=== PATIENT | female | born 1965 | race Caucasian/White ===

== ENCOUNTER 2024-11-05 21:50 | Observation (INO) ==
--- NOTE | 2024-11-05 22:26 | Emergency Department Note ---
Impression & Plan Small bowel obstruction, Umbilical hernia ED Provider Note CHIEF COMPLAINT: Abdominal pain HISTORY OF PRESENTING ILLNESS: This 59-year-old female patient presents to the emergency department with her son and daughter for evaluation of abdominal pain, nausea, and vomiting. The patient was lifting a heavy bag of birdseed and developed pain around her bellybutton around 2 PM. She then ate lunch today and started vomiting. Still having a lot of pain, pressure, nausea, and vomiting. No diarrhea. Her last BM was at 10:30 am and was just a small amount. Has also been having trouble urinating the past 1-2 hours. She denies any fevers. No chest pain or SOB, but feels like it is hard to breathe when the abdominal pain gets bad. She has had an appendectomy and tubal ligation. Still has her gallbladder. No known ill contacts. Denies hematochezia, melena, hematuria, hemoptysis, or hematemesis. She is not on any blood thinners. She last ate and drank at 1:40 pm. REVIEW OF SYSTEMS: See HPI for pertinent positives and pertinent negatives. ALLERGIES: aspartame MEDICATIONS: See below PAST MEDICAL HISTORY: See below PHYSICAL EXAM: VITALS: Vitals are noted on the nurse's note and reviewed by myself. GENERAL: Non toxic, in no acute distress, non-diaphoretic. SKIN: Capillary refill <2 sec. EYES: PERRLA. EOMI. Conjunctivae without injection, sclerae without icterus. NOSE: Patent without discharge. MOUTH: Mucous membranes moist. Uvula midline. Airway patent. NECK: Supple without nuchal rigidity. HEART: Regular rate and rhythm without murmurs gallops or rubs. LUNGS: Clear to auscultation bilaterally without wheezes, rales or rhonchi. No retractions or accessory muscle use. ABDOMEN: Positive bowel sounds x 4. Normal tympanic percussion. Soft, diffusely tender to palpation with maximal tenderness over the area of the hernia just above the umbilicus. I was able to partially reduce the hernia initially, but was unable to fully reduce the hernia. Due to the patient's pain, additional attempts were held until CT scan imaging could be performed. There were no skin color changes over the area of the hernia. No other obvious masses or hepatosplenomegaly. Colón sign negative. No CVA tenderness. No guarding, rigidity, or rebound tenderness. No focal RLQ or LLQ tenderness. MUSCULOSKELETAL: No gross musculoskeletal defects. NEURO: Patient was alert and oriented. No focal neurological deficits. DIFFERENTIAL DIAGNOSIS: Differential diagnosis includes hernia, incarcerated hernia, strangulated hernia, small bowel obstruction, hepatitis, pancreatitis, cholecystitis, cholelithiasis, appendicitis, kidney stone, pyelonephritis, UTI, gastritis, gastroenteritis, mesenteric adenitis, obstruction, constipation, hernia, abdominal abscess, perforation, diverticulitis, IBD, ischemic colitis, abdominal aortic aneurysm, , ectopic , ovarian cyst, ovarian torsion, acute salpingitis, or others. ED COURSE AND MEDICAL DECISION MAKING: HISTORY FROM INDEPENDENT HISTORIAN: Additional history was obtained from the patient's son and daughter MEDICATIONS GIVEN: Tylenol 1000 mg IV, Zofran 4 mg IV. 1 L normal saline solution bolus. Morphine 4 mg IV. MONITOR: Continuous pharmaceutical service representative: Order was placed for continuous pharmaceutical service representative. Patient was placed on the pharmaceutical service representative and continuous pulse ox. Patient was noted to be in normal sinus rhythm at an initial rate of 80 bpm per my interpretation. EKG: EKG was interpreted by myself as normal sinus rhythm at 75 bpm with no acute ST or T wave changes. INTERPRETATION OF LABS: I interpreted the labs with full lab results as below in the lab section of this note. Laboratory results pertinent to the emergent complaint are discussed in the MDM section below. The patient was advised to follow up with their PCP and/or specialist(s) for further outpatient monitoring and management of any abnormal results. INTERPRETATION OF IMAGING: Imaging studies were interpreted by myself and read by radiology as per the imaging section of this note. The patient was advised to follow up with their PCP and/or specialist(s) for further outpatient management of any non-emergent abnormal findings. Chest x-ray showed an elevated right hemidiaphragm which is increased from prior. No consolidation. CT scan of the abdomen pelvis with IV contrast showed Mid to distal small bowel obstruction secondary to a herniated umbilical small bowel loop. There is proximal fluid distention of several small bowel loops proximal to the herniation with asymmetric decompression of the small bowel beyond the level of the herniation. The herniated small bowel loop is fluid distended measuring 2.6 cm. No pneumatosis or pneumoperitoneum. Asymmetric concentric mucosal thickening with pericolonic fat stranding in the region of the distal descending and sigmoid colon. The colon is partially decompressed. Favor incidental sigmoid diverticulitis over focal colitis. No abscess or perforation. CONSULTATIONS: Dr. Vicente of general surgery. On-call hospitalist. PROCEDURES: The risks and benefits of the procedure were discussed with the patient. Verbal consent was obtained to perform the procedure. The patient was placed in the supine position. The patient had been given morphine 4 mg IV for pain control as well as an ice pack to help decrease inflammation. The umbilical hernia site was inspected and palpated to confirm the location and extent of the hernia. Gentle consistent pressure was applied at the hernia sac with counterpressure at the fascial defect to facilitate reduction. Gradual reduction of the hernia contents into the abdominal cavity was achieved without resistance. The hernia stayed reduced after the reduction. The patient noted good improvement of her symptoms after reduction of the hernia. There were no complications. The patient tolerated the procedure well. MDM SUMMARY: I examined the patient. The patient lifted a bag of bird seed earlier today and then developed abdominal pain. She then developed nausea and vomiting after eating lunch. She states that her symptoms have been getting progressively worse. She feels like her stomach is hard. On exam the patient does have a hernia above the umbilicus that is unable to be fully reduced without significant discomfort. An IV lock was placed and labs were drawn. The patient was given Tylenol 1000 mg IV and Zofran 4 mg IV. She was also given 1 L normal saline solution bolus. White blood cell count elevated 11.32. Hemoglobin normal at 14.4. Platelet count normal at 373. Sodium slightly low at 135, anion gap slightly elevated at 12, and glucose 174. CMP otherwise without concerning abnormalities. Lipase normal. Urinalysis with 1+ ketones, but no evidence for UTI. Chest x-ray showed an elevated right hemidiaphragm which is increased from prior. No consolidation. CT scan of the abdomen pelvis with IV contrast showed Mid to distal small bowel obstruction secondary to a herniated umbilical small bowel loop. There is proximal fluid distention of several small bowel loops proximal to the herniation with asymmetric decompression of the small bowel beyond the level of the herniation. The herniated small bowel loop is fluid distended measuring 2.6 cm. No pneumatosis or pneumoperitoneum. Asymmetric concentric mucosal thickening with pericolonic fat stranding in the region of the distal descending and sigmoid colon. The colon is partially decompressed. Favor incidental sigmoid diverticulitis over focal colitis. No abscess or perforation. The patient was independently evaluated by Dr. Maya, who agrees with my assessment and treatment plan. The patient was given morphine 4 mg IV and an ice pack was applied to the area of the hernia. After this intervention, I was able to fully reduce the hernia as above. The hernia stayed reduced at the time of my repeat exam. I spoke with Dr. Vicente of surgery due to the CT scan findings of the small bowel obstruction secondary to the herniated umbilical small bowel loop that now appears to be reduced on exam. He recommended the patient be admitted to medicine for further evaluation and treatment of the small bowel obstruction. He did not feel the patient required an NG tube unless she had continued nausea or vomiting. The patient's nausea and vomiting was controlled at this time so NG tube was not placed. I spoke with the on-call hospitalist who agreed to admit the patient for further evaluation and treatment. Please refer to their dictation for further details. The patient's care was transferred in stable condition. DIAGNOSIS: Small bowel obstruction Umbilical hernia Past Med/Surg History Problem List Hyponatremia Umbilical hernia (Acute) Small bowel obstruction (Acute) Shoulder pain, right Pneumococcal vaccine administered Long-term current use of steroids Medication monitoring encounter Inflammatory bowel arthritis Ulcerative colitis Colon cancer screening Encounter for pre-operative examination History of low back pain No pertinent past surgical history Medical History Ulcerative colitis Arthritis History of hypothyroidism History of anemia NO BLOOD TRANSFUSION Anxiety and depression Heart murmur NO CARDS Hemorrhoids Surgical History Family history of reaction to anesthesia MOTHER-SLOW TO WAKE UP History of dilatation and curettage History of bilateral tubal ligation History of appendectomy History of tooth extraction Stirum teeth removed H/O sinus surgery Family History Mother Family history of diabetes mellitus Other Myocardial infarction Social History Smoking Status: Never smoker Second Hand Exposure: Yes (as a child); Do You Dip or Chew Tobacco: No; Hx Alcohol Use: No Hx Substance Use: No Preferred Language: Luxembourgish Communication Ability: Effective Us Marketing Director Required: No Beliefs That Will Affect Care: None Current Living Situation: Alone Other Information That Helps Us Care for You: No Feels Safe at Home: Yes Safety Concerns: Feels Safe At This Time Assistive Devices: None Allergies Allergies Allergy/AdvReac Type Severity Reaction Status Date / Time aspartame Allergy Severe HEART Verified 05/15/24 11:10 RACING Home Meds Home Medications Medication Instructions Recorded Confirmed acetaminophen 500 mg tablet 500 mg PO QID PRN Pain 06/26/22 05/15/24 (Tylenol Extra Strength) simvastatin 5 mg tablet 5 mg PO DAILY 08/29/22 05/15/24 lactulose 20 gram/30 mL oral 30 g PO BID constipation 07/15/23 05/15/24 solution celecoxib 200 mg capsule (Celebrex) 200 mg PO DAILY 05/15/24 05/15/24 lorazepam 0.5 mg tablet mg PO PRN 05/15/24 05/15/24 ondansetron HCl 4 mg tablet mg PO PRN 05/15/24 05/15/24 vortioxetine 20 mg tablet 20 mg PO 05/15/24 05/15/24 (Trintellix) Previous Rx's Medication Instructions Recorded sulfasalazine 500 mg 0.5 g PO DAILY #90 tabs 10/29/24 tablet,delayed release Results & Data (ED) Vital Signs Vital Signs - 24 hr 11/05/24 21:53 11/05/24 22:02 11/05/24 22:28 Temperature 36.5 C Temperature Source Oral Pulse Rate 105 H 82 Pulse Rate [Apical] 76 Pulse Rate from SpO2 Sensor Pulse Rhythm [Apical] Regular Pulse Strength [Apical] Normal Respiratory Rate 20 19 Respiratory Effort / Characteristics Non-Labored Spontaneous Non-Labored Spontaneous Respiratory Depth Normal Normal Respiratory Pattern Regular Blood Pressure 97/24 L Blood Pressure [Left Arm] 189/111 H Blood Pressure Mean 48 Blood Pressure Mean [Left Arm] 137 Blood Pressure Position [Left Arm] Lying Pulse Oximetry 96 95 Oxygen Delivery Method Room Air Room Air Sepsis Recent Fever Within 48 Hours Yes Sepsis New/Unexplained Change in Mental Status N/A Sepsis Action Taken by Nursing No Action Required 11/05/24 23:00 11/06/24 00:00 11/06/24 01:00 Temperature Temperature Source Pulse Rate 72 71 67 Pulse Rate [Apical] Pulse Rate from SpO2 Sensor 66 Pulse Rhythm [Apical] Pulse Strength [Apical] Respiratory Rate 23 20 20 Respiratory Effort / Characteristics Respiratory Depth Respiratory Pattern Blood Pressure 194/103 H 182/97 H 148/75 H Blood Pressure [Left Arm] Blood Pressure Mean 133 123 99 Blood Pressure Mean [Left Arm] Blood Pressure Position [Left Arm] Pulse Oximetry 94 91 Oxygen Delivery Method Sepsis Recent Fever Within 48 Hours Sepsis New/Unexplained Change in Mental Status Sepsis Action Taken by Nursing 11/06/24 02:00 11/06/24 02:01 11/06/24 03:00 Temperature Temperature Source Pulse Rate 64 68 63 Pulse Rate [Apical] Pulse Rate from SpO2 Sensor Pulse Rhythm [Apical] Pulse Strength [Apical] Respiratory Rate 18 16 Respiratory Effort / Characteristics Respiratory Depth Respiratory Pattern Blood Pressure 154/82 H 146/75 H Blood Pressure [Left Arm] Blood Pressure Mean 99 101 Blood Pressure Mean [Left Arm] Blood Pressure Position [Left Arm] Pulse Oximetry 92 95 Oxygen Delivery Method Sepsis Recent Fever Within 48 Hours Sepsis New/Unexplained Change in Mental Status Sepsis Action Taken by Nursing Laboratory Data 11/05/24 22:06 11/05/24 22:06 Lab Results 11/05/24 11/06/24 Range/Units 22:06 00:20 WBC 11.32 H (4.8-10.8) K/ul RBC 5.26 (4.20-5.40) M/uL Hgb 14.4 (12.0-16.0) g/dl Hct 43.9 (37.0-47.0) % MCV 83.5 (80.0-100.0) fL MCH 27.4 (25.0-34.0) pg MCHC 32.8 (32.0-36.0) g/dL RDW Std Deviation 46.3 (36.4-46.3) fL RDW Coeff of Alli 15.2 H (11.5-14.5) % Plt Count 373 (130-400) K/uL MPV 9.6 (9.4-12.4) fL Immature Gran % (Auto) 0.3 % Neut % (Auto) 80.7 % Lymph % (Auto) 13.4 % Grainger % (Auto) 4.6 % Eos % (Auto) 0.6 % Baso % (Auto) 0.4 % Neut # (Auto) 9.14 H (1.40-6.50) K/uL Lymph # (Auto) 1.52 (1.20-3.40) K/uL Grainger # (Auto) 0.52 (0.11-0.59) K/uL Eos # (Auto) 0.07 (0.00-0.50) K/uL Baso # (Auto) 0.04 (0.00-0.20) K/uL Immature Gran # (Auto) 0.03 (0.01-0.20) K/uL Sodium 135 L (136-145) mmol/L Potassium 4.1 (3.5-5.1) mmol/L Chloride 99 (98-107) mmol/L Carbon Dioxide 24 (21-32) mmol/L Anion Gap 12 H (3-11) BUN 16 (6-23) mg/dl Creatinine 0.77 (0.6-1.2) mg/dl Est Cr Clr Drug Dosing 92.3 ml/min eGFR 87.71 BUN/Creatinine Ratio 20.8 H (10-20) Glucose 174 H (70-99(Fasting)) mg/dl Calcium 10.3 (8.6-10.3) mg/dl Total Bilirubin 0.7 (0.2-1.0) mg/dl AST 17 (13-39) U/L ALT 10 (7-52) U/L Alkaline Phosphatase 96 (34-104) U/L Troponin I High Sens 2.7 (0-14) pg/ml Total Protein 8.8 H (6.0-8.3) gm/dl Albumin 4.3 (3.4-5.0) gm/dl Globulin 4.5 H (2.5-4.0) gm/dl Albumin/Globulin Ratio 1.0 (0.9-2) Lipase 20 (11-82) U/L Urine Color Yellow Urine Appearance Cloudy A (Clear) Urine pH 8.5 H (4.5-7.5) Ur Specific [place] 1.037 H (1.000-1.030) Urine Protein Trace H (Negative) Urine Glucose (UA) Negative (Negative) Urine Ketones 1+ H (Negative) Urine Blood Negative (Negative) Urine Nitrite Negative (Negative) Urine Bilirubin Negative (Negative) Urine Urobilinogen Negative (Negative) Ur Leukocyte Esterase Negative (Negative) Urine WBC (Auto) 0-5 (0-5) /hpf Urine RBC (Auto) 0-2 (0-2) /hpf U Hyaline Cast (Auto) 0-2 (0-2) /lpf U Epithel Cells (Auto) 3-5 H (0-2) /hpf Urine Bacteria (Auto) None Seen (None Seen) Administered Medications Lactated Ringer's (Lr) 1,000 mls @ 80 mls/hr IV .[id number] RISA Stop: 11/07/24 03:59 Last Admin: 11/06/24 05:28 Dose: 80 mls/hr Documented By: RAFA Discontinued Medications Acetaminophen (Ofirmev) 1,000 mg in 100 mls @ 400 mls/hr IV NOW STA Stop: 11/05/24 22:59 Last Infusion: 11/05/24 23:29 Dose: Infused Documented By: Admin: 11/05/24 22:50 Dose: 400 mls/hr Documented By: LEOLA Sodium Chloride (Nss) 1,000 mls @ 999 mls/hr IV .[id number] ONE Stop: 11/05/24 23:45 Last Infusion: 11/06/24 00:02 Dose: Infused Documented By: Admin: 11/05/24 22:50 Dose: 999 mls/hr Documented By: LEOLA Ioversol (Optiray 320 100ml) 100 ml IV ONCE ONE Stop: 11/05/24 23:22 Last Admin: 11/05/24 23:21 Dose: 93 ml Documented By: CARLOS Morphine Sulfate (Morphine Sulfate 4 Mg/Ml 1 Ml Carp\Vial) 4 mg IV NOW STA Stop: 11/06/24 01:55 Last Admin: 11/06/24 01:59 Dose: 4 mg Documented By: RUFUS Ondansetron HCl (Ondansetron Inj 2 Mg/Ml 2 Ml Vial) 4 mg IV NOW STA Stop: 11/05/24 22:46 Last Admin: 11/05/24 22:50 Dose: 4 mg Documented By: LEOLA Imaging Data Radiologist's Impression: Abdomen/Pelvis CT 11/05/24 22:45 Exam(s): CT ABDOMEN + PELVIS With Contrast IV Amt: 93 ML OPTIRAY 320 EXAM: CT Abdomen and Pelvis With Intravenous Contrast CLINICAL HISTORY: Abd pain, N/V, ? Hernia, SBO. TECHNIQUE: Axial computed tomography images of the abdomen and pelvis with intravenous contrast. CTDI is 28.14 mGy and DLP is 1507.39 mGy-cm. Automated exposure control was utilized for the study. A dose lowering technique was utilized adhering to the principles of ALARA. CONTRAST: Patient received 93 ML OPTIRAY 320 of IV contrast COMPARISON: CT abdomen and pelvis with contrast dated 02/09/2023 FINDINGS: Lung bases: Unremarkable. No mass. No consolidation. ABDOMEN: Liver: Unremarkable. No mass. Gallbladder and bile ducts: Unremarkable. No calcified stones. No ductal dilation. Pancreas: Unremarkable. No mass. No ductal dilation. Spleen: Unremarkable. No splenomegaly. Adrenals: Unremarkable. No mass. Kidneys and ureters: Unremarkable. No solid mass. No hydronephrosis. Stomach and bowel: Mid to distal small bowel obstruction secondary to a herniated umbilical small bowel loop. There is proximal fluid distention of several small bowel loops proximal to the herniation with asymmetric decompression of the small bowel beyond the level of the herniation. The herniated small bowel loop is fluid distended measuring 2.6 cm. Asymmetric concentric mucosal thickening with pericolonic fat stranding in the region of the distal descending and sigmoid colon. The colon is partially decompressed. PELVIS: Appendix: No findings to suggest acute appendicitis. Bladder: Unremarkable. No mass. Reproductive: There is a somewhat rounded fluid density structure in the region of the left adnexa measuring 2.7 cm in size. Previously, this measured 2 cm. The uterus and right adnexa are unremarkable. ABDOMEN and PELVIS: Intraperitoneal space: Unremarkable. No free air. No significant fluid collection. Bones/joints: No acute fracture. No dislocation. Soft tissues: As above. The hernia measures 1.7 cm in transverse diameter. Minimal fat stranding surrounding the umbilical hernia No other abnormality identified. Vasculature: Unremarkable. No abdominal aortic aneurysm. Lymph nodes: Unremarkable. No enlarged lymph nodes. IMPRESSION: 1. Mid to distal small bowel obstruction secondary to a herniated umbilical small bowel loop. There is proximal fluid distention of several small bowel loops proximal to the herniation with asymmetric decompression of the small bowel beyond the level of the herniation. The herniated small bowel loop is fluid distended measuring 2.6 cm. No pneumatosis or pneumoperitoneum. 2. Asymmetric concentric mucosal thickening with pericolonic fat stranding in the region of the distal descending and sigmoid colon. The colon is partially decompressed. Favor incidental sigmoid diverticulitis over focal colitis. No abscess or perforation. Electronically signed by: Antoni Gilbert MD 11/06/24 01:13 AM Chest X-Ray 11/05/24 22:46 Exam(s): XR CXR 1 VIEW EXAM: XR Chest, 1 View CLINICAL HISTORY: Reason for exam: Upper abdominal pain, N/V. TECHNIQUE: Frontal view of the chest. COMPARISON: 05/05/19 FINDINGS: Lungs: Elevated right hemidiaphragm, increased from prior. No consolidation. Pleural space: No pleural effusion or pneumothorax. Heart: No cardiomegaly or pulmonary vascular congestion. Bones/joints: No acute fracture. No dislocation. IMPRESSION: Elevated right hemidiaphragm, increased from prior. No consolidation. Electronically signed by: Paulina Lewis M.D. 11/05/24 23:48 PM Discharge Plan Visit Data Chief Complaint: Abdominal Pain Stated Complaint: ABDOMINAL PAIN AND VOMITING ED Provider: Debbie Maya ED Midlevel Provider: Destiny Moreau Discharge Problem: Small bowel obstruction, Umbilical hernia Patient Disposition: Admitted As Inpatient Condition: Good Discharge Instructions Interventions: ED Discharge Assessment Last Done: 11/06/24 04:55 Discharge Problem: Umbilical hernia Qualifiers: Obstruction and gangrene presence: with obstruction but without gangrene Q ualified Code(s): K42.0 - Umbilical hernia with obstruction, without gangrene
[2024-11-05 22:29] LABS: Basophils # (auto) 0.04 K/uL (0.00-0.20); Basophils % (auto) 0.4 %; Eosinophils # (auto) 0.07 K/uL (0.00-0.50); Eosinophils % (auto) 0.6 %; Hematocrit (blood only) 43.9 % (37.0-47.0); Hemoglobin 14.4 g/dl (12.0-16.0); Immature Granulocytes # (auto) 0.03 K/uL (0.01-0.20); Immature Granulocytes % (auto) 0.3 %; Lymphocytes # (auto) 1.52 K/uL (1.20-3.40); Lymphocytes % (auto) 13.4 %; Mean Corpuscular Hemoglobin 27.4 pg (25.0-34.0); Mean Corpuscular Hgb Conc 32.8 g/dL (32.0-36.0); Mean Corpuscular Volume 83.5 fL (80.0-100.0); Mean Platelet Volume 9.6 fL (9.4-12.4); Monocytes # (auto) 0.52 K/uL (0.11-0.59); Monocytes % (auto) 4.6 %; Neutrophils # (auto) 9.14 K/uL (1.40-6.50); Neutrophils % (auto) 80.7 %; Platelet Count 373 K/uL (130-400); RDW Coefficient of Variation 15.2 % (11.5-14.5); RDW Standard Deviation 46.3 fL (36.4-46.3); Red Blood Count 5.26 M/uL (4.20-5.40); White Blood Count 11.32 K/ul (4.8-10.8)
[2024-11-05 22:46] LABS: Albumin Level 4.3 gm/dl (3.4-5.0); BUN Creatinine Ratio 20.8 (10-20); Bilirubin,Total 0.7 mg/dl (0.2-1.0); Calcium 10.3 mg/dl (8.6-10.3); Creatinine Clr Calc Pharmacy 92.3 ml/min; Globulin 4.5 gm/dl (2.5-4.0); Potassium 4.1 mmol/L (3.5-5.1); Total Protein 8.8 gm/dl (6.0-8.3)
[2024-11-05] MEDS: ACETAMINOPHEN 1,000 MG/100 ML VIAL IV STA (22:50)
[2024-11-05] MEDS: SODIUM CHLORIDE 0.9% 1,000 ML IV ONE (22:50)
[2024-11-05] MEDS: ONDANSETRON INJ 2 MG/ML 2 ML VIAL IV STA (22:50)
[2024-11-05 23:17] LABS: Troponin I High Sensitivity 2.7 pg/ml (0-14)
[2024-11-05] MEDS: OPTIRAY 320 100ml IV ONE (23:21)
--- NOTE | 2024-11-05 23:50 | XRay Report ---
Exam(s): XR CXR 1 VIEW EXAM: XR Chest, 1 View CLINICAL HISTORY: Reason for exam: Upper abdominal pain, N/V. TECHNIQUE: Frontal view of the chest. COMPARISON: 05/05/19 FINDINGS: Lungs: Elevated right hemidiaphragm, increased from prior. No consolidation. Pleural space: No pleural effusion or pneumothorax. Heart: No cardiomegaly or pulmonary vascular congestion. Bones/joints: No acute fracture. No dislocation. IMPRESSION: Elevated right hemidiaphragm, increased from prior. No consolidation. Electronically signed by: Paulina Lewis M.D. 11/05/24 23:48 PM
--- NOTE | 2024-11-06 01:14 | CT Scan Report ---
Exam(s): CT ABDOMEN + PELVIS With Contrast IV Amt: 93 ML OPTIRAY 320 EXAM: CT Abdomen and Pelvis With Intravenous Contrast CLINICAL HISTORY: Abd pain, N/V, ? Hernia, SBO. TECHNIQUE: Axial computed tomography images of the abdomen and pelvis with intravenous contrast. CTDI is 28.14 mGy and DLP is 1507.39 mGy-cm. Automated exposure control was utilized for the study. A dose lowering technique was utilized adhering to the principles of ALARA. CONTRAST: Patient received 93 ML OPTIRAY 320 of IV contrast COMPARISON: CT abdomen and pelvis with contrast dated 02/09/2023 FINDINGS: Lung bases: Unremarkable. No mass. No consolidation. ABDOMEN: Liver: Unremarkable. No mass. Gallbladder and bile ducts: Unremarkable. No calcified stones. No ductal dilation. Pancreas: Unremarkable. No mass. No ductal dilation. Spleen: Unremarkable. No splenomegaly. Adrenals: Unremarkable. No mass. Kidneys and ureters: Unremarkable. No solid mass. No hydronephrosis. Stomach and bowel: Mid to distal small bowel obstruction secondary to a herniated umbilical small bowel loop. There is proximal fluid distention of several small bowel loops proximal to the herniation with asymmetric decompression of the small bowel beyond the level of the herniation. The herniated small bowel loop is fluid distended measuring 2.6 cm. Asymmetric concentric mucosal thickening with pericolonic fat stranding in the region of the distal descending and sigmoid colon. The colon is partially decompressed. PELVIS: Appendix: No findings to suggest acute appendicitis. Bladder: Unremarkable. No mass. Reproductive: There is a somewhat rounded fluid density structure in the region of the left adnexa measuring 2.7 cm in size. Previously, this measured 2 cm. The uterus and right adnexa are unremarkable. ABDOMEN and PELVIS: Intraperitoneal space: Unremarkable. No free air. No significant fluid collection. Bones/joints: No acute fracture. No dislocation. Soft tissues: As above. The hernia measures 1.7 cm in transverse diameter. Minimal fat stranding surrounding the umbilical hernia No other abnormality identified. Vasculature: Unremarkable. No abdominal aortic aneurysm. Lymph nodes: Unremarkable. No enlarged lymph nodes. IMPRESSION: 1. Mid to distal small bowel obstruction secondary to a herniated umbilical small bowel loop. There is proximal fluid distention of several small bowel loops proximal to the herniation with asymmetric decompression of the small bowel beyond the level of the herniation. The herniated small bowel loop is fluid distended measuring 2.6 cm. No pneumatosis or pneumoperitoneum. 2. Asymmetric concentric mucosal thickening with pericolonic fat stranding in the region of the distal descending and sigmoid colon. The colon is partially decompressed. Favor incidental sigmoid diverticulitis over focal colitis. No abscess or perforation. Electronically signed by: Antoni Gilbert MD 11/06/24 01:13 AM
[2024-11-06 01:35] LABS: Appearance Urine Cloudy (Clear); Bacteria Urine Automated None Seen (None Seen); Bilirubin Urine Negative (Negative); Blood Urine Negative (Negative); Cast Urine Automated 0-2 /lpf (0-2); Color Urine Yellow; Glucose Urine UA Negative (Negative); Ketones Urine 1+ (Negative); Leukocyte Esterase Urine Negative (Negative); Nitrite Urine Negative (Negative); Protein Urine Trace (Negative); RBC Urine Automated 0-2 /hpf (0-2); Specific Gravity Urine 1.037 (1.000-1.030); Urobilinogen Urine Negative (Negative); WBC Urine Automated 0-5 /hpf (0-5); pH Urine 8.5 (4.5-7.5)
[2024-11-06] MEDS: MoRPHine SULFATE 4 MG/ML 1 ML CARP\\VIAL IV STA (01:59)
--- NOTE | 2024-11-06 03:11 | History & Physical Report ---
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 ED evaluation reveals leukocytosis 11.32, CMP sodium 135, anion gap 12, BUN/creatinine ratio 20.8, glucose 174, protein 8.8, globulin 4.5; lipase 20; UA with 1+ ketones and epithelial cells; CXR elevated right hemidiaphragm which is increased from prior without consolidation; CTAP mid to distal SBO secondary to herniated umbilical small bowel loop, proximal fluid distention of several small bowel loops proximal to the herniation with symmetric decompression of small bowel beyond the level of the herniation distending 2.6 cm, no pneumatosis or pneumoperitoneum and asymmetric concentric mucosal thickening with pericolonic fat stranding in the region of the distal descending and sigmoid colon with of the colon being partially decompressed, no abscess or perforation; EKG NSR at 73 bpm; provided with 1L NSS, Zofran 4 megs, morphine 4 mg, and Tylenol 1 g IV in ED. #SBO/Umbilical hernia Abdominal pain starting after lifting bird seed, noticeable then when standing straight up and down as well. 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 Current pain 2. - CBC leukocytosis 11.32; CMP sodium 132, anion gap 12; lipase 20 - CBC am - CTAP mid to distal SBO secondary to herniated umbilical small bowel loop with proximal fluid distention of several small bowel loops proximal to the herniation and symmetric decompression of small bowel beyond the level of the herniation (2.6 cm) - Pain management- morphine as needed - Zofran prn N/V - NPO - IVF w/ LR @ 80 mL/hr - Gen sx consulted- appreciate input + recs #Hyponatremia Likely secondary to vomiting and with minimal decrease, currently asymptomatic. - Na 135, glucose 174; corrected 137 - IVF as above - BMP am #UC/IBA-follows with rheumatology, most recent visit 05/15/2024; sulfasalazine #Anxiety/depression- Vortioxetine, lorazepam as needed Dispo: Admit, med/sx VTE prophylaxis: SCDs This document was dictated utilizing [employer]. Please excuse any grammatical errors that may be secondary to use of this software. 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 States that she continued on with her movements and did not have much abdominal pain, few hours later she was moving her laundry basket and started to notice that the pain returned again, this time a little more severe. She tried to eat a meal but states that she felt quite nauseous after this and so when she went to the restroom and went to stand up, she felt that there was a bulge at her umbilicus. After trying to eat, she vomited approximately 7 times, and states that the last time she felt that she was throwing up dark matter. Patient attempted to sleep but at 2100, the pain was rated a 10 out of 10 and she could no longer st and so she decided to be evaluated. States that the current pain is a 2 out of 10 on the pain scale, and the pain always stayed at the umbilicus. Patient did feel as though she was having sweats when she was coming to the ED, but no fever or chills otherwise. Denying chest pain, shortness of breath, palpitations, diarrhea or constipation, numbness/tingling, weakness, or syncope. Patient has never had this happen before. ED evaluation reveals leukocytosis 11.32, CMP sodium 135, anion gap 12, BUN/creatinine ratio 20.8, glucose 174, protein 8.8, globulin 4.5; lipase 20; UA with 1+ ketones and epithelial cells; CXR elevated right hemidiaphragm which is increased from prior without consolidation; CTAP mid to distal SBO secondary to herniated umbilical small bowel loop, proximal fluid distention of several small bowel loops proximal to the herniation with symmetric decompression of small bowel beyond the level of the herniation distending 2.6 cm, no pneumatosis or pneumoperitoneum and asymmetric concentric mucosal thickening with pericolonic fat stranding in the region of the distal descending and sigmoid colon with of the colon being partially decompressed, no abscess or perforation; EKG NSR at 73 bpm; provided with 1L NSS, Zofran 4 megs, morphine 4 mg, and Tylenol 1 g IV in ED. Please see Dr. Willis's attestation for adjustments/additions to treatment plan. Allergies Allergy/AdvReac Type Severity Reaction Status Date / Time aspartame Allergy Severe HEART Verified 05/15/24 11:10 RACING Home Medications Medication Instructions Recorded Confirmed Type acetaminophen 500 mg tablet 500 mg PO QID PRN Pain 06/26/22 05/15/24 History (Tylenol Extra Strength) simvastatin 5 mg tablet 5 mg PO DAILY 08/29/22 05/15/24 History lactulose 20 gram/30 mL oral 30 g PO BID constipation 07/15/23 05/15/24 History solution celecoxib 200 mg capsule (Celebrex) 200 mg PO DAILY 05/15/24 05/15/24 History lorazepam 0.5 mg tablet mg PO PRN 05/15/24 05/15/24 History ondansetron HCl 4 mg tablet mg PO PRN 05/15/24 05/15/24 History vortioxetine 20 mg tablet 20 mg PO 05/15/24 05/15/24 History (Trintellix) sulfasalazine 500 mg 0.5 g PO DAILY #90 tabs 10/29/24 Rx tablet,delayed release Past Med/Surg History Problem List Hyponatremia Umbilical hernia Small bowel obstruction Shoulder pain, right Pneumococcal vaccine administered Long-term current use of steroids Medication monitoring encounter Inflammatory bowel arthritis Ulcerative colitis Colon cancer screening Encounter for pre-operative examination History of low back pain No pertinent past surgical history Medical History Ulcerative colitis Arthritis History of hypothyroidism History of anemia NO BLOOD TRANSFUSION Anxiety and depression Heart murmur NO CARDS Hemorrhoids Surgical History Family history of reaction to anesthesia MOTHER-SLOW TO WAKE UP History of dilatation and curettage History of bilateral tubal ligation History of appendectomy History of tooth extraction [place] teeth removed H/O sinus surgery Family History Mother Family history of diabetes mellitus Other Myocardial infarction Social History Smoking Status: Never smoker Second Hand Exposure: Yes (as a child); Do You Dip or Chew Tobacco: No; Hx Alcohol Use: Yes Hx Substance Use: No Preferred Language: [place] Communication Ability: Effective 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 Beliefs That Will Affect Care: None Current Living Situation: Spouse Feels Safe at Home: Yes Assistive Devices: Glasses Review of Systems Review of Systems: All systems reviewed & are unremarkable except as noted in Subjective Physical Exam Physical Exam: General: No acute distress Skin: Warm and dry Head: Normocephalic, atraumatic Eyes: PERRL, conjunctivae clear, sclera non-icteric; wearing glasses ENT: External ear and ear canal without swelling; nose atraumatic; good dentition, tongue normal appearance, pharynx normal Neck: Supple, no LAD Cardio: RRR, no M/G/R, S1 and S2 normal Resp: No respiratory distress, Lungs CTA in all lobes bilaterally, no wheezes, rales, or rhonchi Abdomen: Soft, symmetric, mild tenderness to palpation at level just above umbilicus; No masses or hepatosplenomegaly palpable; Bowel sounds normoactive MSK: No deformities; pulses palpable and equal; no edema. Neuro: Awake, alert; Sensation intact bilaterally; CN grossly intact Psych: Appropriate mood and affect; good judgement and insight. Results & Data Results & Data Vital Signs (Past 12 Hours) Vital Signs Temp Pulse Pulse Resp BP BP Pulse Ox 11/06/24 02:01 68 11/06/24 01:00 67 20 148/75 H 91 11/06/24 00:00 71 20 182/97 H 94 11/05/24 23:00 72 23 194/103 H 11/05/24 22:28 76 19 189/111 H 95 11/05/24 22:02 82 11/05/24 21:53 36.5 C 105 H 20 97/24 L 96 O2 Del Method 11/06/24 02:01 11/06/24 01:00 11/06/24 00:00 11/05/24 23:00 11/05/24 22:28 Room Air 11/05/24 22:02 11/05/24 21:53 Room Air Laboratory Results 11/06/24 11/05/24 00:20 22:06 WBC 11.32 H RBC 5.26 Hgb 14.4 Hct 43.9 MCV 83.5 MCH 27.4 MCHC 32.8 RDW Std Deviation 46.3 RDW Coeff of Alli 15.2 H Plt Count 373 MPV 9.6 Immature Gran % (Auto) 0.3 Neut % (Auto) 80.7 Lymph % (Auto) 13.4 [place] % (Auto) 4.6 Eos % (Auto) 0.6 Baso % (Auto) 0.4 Neut # (Auto) 9.14 H Lymph # (Auto) 1.52 [place] # (Auto) 0.52 Eos # (Auto) 0.07 Baso # (Auto) 0.04 Immature Gran # (Auto) 0.03 Sodium 135 L Potassium 4.1 Chloride 99 Carbon Dioxide 24 Anion Gap 12 H BUN 16 Creatinine 0.77 Est Cr Clr Drug Dosing 92.3 eGFR 87.71 BUN/Creatinine Ratio 20.8 H Glucose 174 H Calcium 10.3 Total Bilirubin 0.7 AST 17 ALT 10 Alkaline Phosphatase 96 Troponin I High Sens 2.7 Total Protein 8.8 H Albumin 4.3 Globulin 4.5 H Albumin/Globulin Ratio 1.0 Lipase 20 Urine Color Yellow Urine Appearance Cloudy A Urine pH 8.5 H Ur Specific [place] 1.037 H Urine Protein Trace H Urine Glucose (UA) Negative Urine Ketones 1+ H Urine Blood Negative Urine Nitrite Negative Urine Bilirubin Negative Urine Urobilinogen Negative Ur Leukocyte Esterase Negative Urine WBC (Auto) 0-5 Urine RBC (Auto) 0-2 U Hyaline Cast (Auto) 0-2 U Epithel Cells (Auto) 3-5 H Urine Bacteria (Auto) None Seen Diagnostic Findings Abdomen/Pelvis CT 11/05/24 22:45 Exam(s): CT ABDOMEN + PELVIS With Contrast IV Amt: 93 ML OPTIRAY 320 EXAM: CT Abdomen and Pelvis With Intravenous Contrast CLINICAL HISTORY: Abd pain, N/V, ? Hernia, SBO. TECHNIQUE: Axial computed tomography images of the abdomen and pelvis with intravenous contrast. CTDI is 28.14 mGy and DLP is 1507.39 mGy-cm. Automated exposure control was utilized for the study. A dose lowering technique was utilized adhering to the principles of ALARA. CONTRAST: Patient received 93 ML OPTIRAY 320 of IV contrast COMPARISON: CT abdomen and pelvis with contrast dated 02/09/2023 FINDINGS: Lung bases: Unremarkable. No mass. No consolidation. ABDOMEN: Liver: Unremarkable. No mass. Gallbladder and bile ducts: Unremarkable. No calcified stones. No ductal dilation. Pancreas: Unremarkable. No mass. No ductal dilation. Spleen: Unremarkable. No splenomegaly. Adrenals: Unremarkable. No mass. Kidneys and ureters: Unremarkable. No solid mass. No hydronephrosis. Stomach and bowel: Mid to distal small bowel obstruction secondary to a herniated umbilical small bowel loop. There is proximal fluid distention of several small bowel loops proximal to the herniation with asymmetric decompression of the small bowel beyond the level of the herniation. The herniated small bowel loop is fluid distended measuring 2.6 cm. Asymmetric concentric mucosal thickening with pericolonic fat stranding in the region of the distal descending and sigmoid colon. The colon is partially decompressed. PELVIS: Appendix: No findings to suggest acute appendicitis. Bladder: Unremarkable. No mass. Reproductive: There is a somewhat rounded fluid density structure in the region of the left adnexa measuring 2.7 cm in size. Previously, this measured 2 cm. The uterus and right adnexa are unremarkable. ABDOMEN and PELVIS: Intraperitoneal space: Unremarkable. No free air. No significant fluid collection. Bones/joints: No acute fracture. No dislocation. Soft tissues: As above. The hernia measures 1.7 cm in transverse diameter. Minimal fat stranding surrounding the umbilical hernia No other abnormality identified. Vasculature: Unremarkable. No abdominal aortic aneurysm. Lymph nodes: Unremarkable. No enlarged lymph nodes. IMPRESSION: 1. Mid to distal small bowel obstruction secondary to a herniated umbilical small bowel loop. There is proximal fluid distention of several small bowel loops proximal to the herniation with asymmetric decompression of the small bowel beyond the level of the herniation. The herniated small bowel loop is fluid distended measuring 2.6 cm. No pneumatosis or pneumoperitoneum. 2. Asymmetric concentric mucosal thickening with pericolonic fat stranding in the region of the distal descending and sigmoid colon. The colon is partially decompressed. Favor incidental sigmoid diverticulitis over focal colitis. No abscess or perforation. Electronically signed by: Antoni Gilbert MD 11/06/24 01:13 AM Chest X-Ray 11/05/24 22:46 Exam(s): XR CXR 1 VIEW EXAM: XR Chest, 1 View CLINICAL HISTORY: Reason for exam: Upper abdominal pain, N/V. TECHNIQUE: Frontal view of the chest. COMPARISON: 05/05/19 FINDINGS: Lungs: Elevated right hemidiaphragm, increased from prior. No consolidation. Pleural space: No pleural effusion or pneumothorax. Heart: No cardiomegaly or pulmonary vascular congestion. Bones/joints: No acute fracture. No dislocation. IMPRESSION: Elevated right hemidiaphragm, increased from prior. No consolidation. Electronically signed by: Paulina Lewsi M.D. 11/05/24 23:48 PM Medications Administered 1L NSS IV Ondansetron 4 megs IV Morphine 4 mg IV Acetaminophen 1 g IV ECG Additional Comments: NSR 75 bpm, OH 122, QRS 84, QT/QTc 396/442, PRT - 08/24/1943 Code Status & VTE Plan Code Status Full Supervising Physician Co-Signing Physician Notes patient seen and examined, chart reviewed, case discussed with ALFRED Dc and I agree with the assessment and plan as documented as above. In brief, patient is a 59 year old female presenting with abdominal pain. Patient was lifting a bag of bird seed when she developed acute pain in her umbilicus. The pain initially improved but then returned when she was lifting a laundry basket later. She then developed nausea and vomiting and noted a hernia at her umbilicus. Hernia was ultimately able to be reduced in the ER with use of pain medications and ice Patient presently reports pain has improved. No nausea at present. She is not passing gas On physical exam she is afebrile, mildly hypertensive otherwise hemodynamically stable Resting comfortably in bed in no acute distress Skin warm and dry without rashes HEENT with pupils equal round reacting, moist mucous membranes, neck supple Heart with S1/S2 present, regular, no murmur/rub/gallops Lungs CTA anteriorly Abdomen with diminished bowel sounds, mild distention, mildly tender to palpation but no rebound or guarding. No umbilical hernia present Labs and images reviewed significant for WBC = 11.32 with neutrophil predominance Sodium = 135 imaging results as above Assessment/[id number] female with history of ulcerative colitis, hyperlipidemia presenting with acute onset abdominal pain and development of umbilical hernia with small bowel obstruction after lifting a large bag of bird seed. Hernia has been reduced. Patient's pain and nausea have improved at present. Admit to medical Keep n.p.o. IV fluids Pain control antiemetics General Surgery consultation appreciated Remainder as above PG Care Time/CCT Total # of Minutes Spent Total Time Spent with Patient: Total time spent is greater than 50% in coordination of care (as documented) at patient's floor/unit and/or counseling patient: Coding Level of Care Code 16705 INT INP/OBS CARE 3/75MIN Diagnoses Small bowel obstruction K56.609 Umbilical hernia K42.9 Hyponatremia E87.1
[2024-11-06 03:17] VITALS: RESP 16
--- NOTE | 2024-11-06 03:39 | Emergency Department Note ---
ED Visit Note I was consulted by the Advanced Practice Provider. I personally approved the management plan and take responsibility for the patient management. This includes the aspects of: -History/Physical/Personally seeing the patient -MDM -I independently interpreted the following studies:Studies and results .
[2024-11-06] MEDS ORDERED: MoRPHine SULFATE 2 MG/ML CARP IV PRN (04:02)
[2024-11-06] MEDS ORDERED: MoRPHine SULFATE 4 MG/ML 1 ML CARP\\VIAL IV PRN (04:02)
[2024-11-06] MEDS ORDERED: MELATONIN 3 MG TAB PO PRN (05:22)
[2024-11-06] MEDS ORDERED: ONDANSETRON INJ 2 MG/ML 2 ML VIAL IV PRN (05:22)
[2024-11-06] MEDS: LACTATED RINGER'S 1,000 ML IV SCH (05:28)
[2024-11-06 06:07] VITALS: TEMP 97.3
[2024-11-06] MEDS ORDERED: ACETAMINOPHEN 500 MG TAB PO PRN (06:45)
[2024-11-06] MEDS ORDERED: traZODone HCL 50 MG TAB PO PRN (06:45)
--- OUTSIDE RECORDS SUMMARY | 2024-11-06 06:45 | External Medical Summary | Summary of Care ---
Author Name Unknown Organization [facility] Address [address] [place] [address] Phone [phone] Care Team Providers Care Infirmary Attendant Name Role Phone Emma Vu Christophersusan DO Primary Car e Provider Reason for Visit * Reason Onset Date Comments Test Results Imaging Study 06/16/2024 CTAP Encounter Details Date Type Department Care Team (Late st Contact Info) Description 06/16/2024 Telephone Gastroenterology, [facility] [address] [place] [address] Norma Miller CRNP [address] [place] [address] Test Results Imaging Study (CTAP) Allergies Active Allergy Reactions Criticality Noted Date Comments Aspartame High 09/07/2022 Other Reaction(s): HEART RACING documented as of this encounter (statuses as of 07/08/2024) Medications Acetaminophen 500 MG Oral Tablet Take 1 Tablet by mouth every 4 hours as needed. 06/26/20 22 Active LORazepam 0.5 MG Oral Tablet (Ativan) Take 1 Tablet by mouth every 6 hours as needed. 01/11/20 23 Active Ondansetron HCl 4 MG Oral Tablet (Zofran) Take 1 Tablet by mouth every 8 hours as needed. 05/25/20 23 Active Vortioxetine HBr 20 MG Oral Tablet Take 1 Tablet by mouth in the morning. Active sulfaSALAzine 250 MG OR TABS Take 1 Tablet by mouth in the morning. 01/16/20 Active Rosuvastatin Calcium 10 MG Oral Tablet (Crestor) Take 1 Tablet by mouth every night at bedtime. 12/25/19 24 Active buPROPion HCl ER (SR) 100 MG Oral Tablet Extended Release 12 Hour (Wellbutrin SR) Take 1 Tablet by mouth in the morning and 1 Tablet before bedtime. Active Omeprazole 20 MG Oral Tablet Delayed ReleaseIndicati ons:Chronic constipation,Ex ternal thrombosed hemorrhoids,Abd ominal bloating,Gastro esophageal reflux disease with esophagitis without hemorrhage Take 1 Tablet by mouth in the morning. 30 Tablet 3 06/03/20 24 Active linaCLOtide 145 MCG Oral Capsule (Linzess)Indica tions:Chronic constipation,Ex ternal thrombosed hemorrhoids,Abd ominal bloating,Gastro esophageal reflux disease with esophagitis without hemorrhage Take 1 Capsule by mouth daily before breakfast. 30 Capsule 11 06/03/20 24 Active Celecoxib 200 MG Oral Capsule (CeleBREX) Take 1 Capsule by mouth in the morning. One tablet or two tablets depends on her pain level-. 03/27/20 Discontinued Semaglutide(0.2 5 or 0.5MG/DOS) 2 MG/1.5ML Solution Pen-injector (Ozempic) Inject 0.5 mg under the skin once a week. Discontinued traZODone HCl 50 MG Oral Tablet (Desyrel) Take 1 Tablet by mouth at bedtime. Discontinued Gabapentin 100 MG Oral Capsule (Neurontin) Take 1 Capsule by mouth at bedtime. 09/23/19 24 Discontinued(Or dication List Clean Up) Multivitamin Adult Oral Tablet Chewable Take by mouth. 024 Discontinued documented as of this encounter (statuses as of 07/08/2024) Active Problems Problem Noted Date Diagnosed Date Nausea and vomiting 01/25/2023 Rectal bleeding 01/25/2023 documented as of this encounter (statuses as of 07/08/2024) Immunizations Name Administration Dates Next Due Seasonal Influenza, PF, 6 M & above, IM , (FluLaval or Fluzone) 07/23/2023 Seasonal Influenza, Trivalent, (IIV3), PF, (Fluz one) 06/03/2024 documented as of this encounter Social History Tobacco Use Types Packs/Day Years Used Date Smoking Tobacco: Never Smokeless Tobacco: Never Alcohol Use Standard Drinks/Week Comments Not Currently 0 (1 standard drink = 0.6 oz pur e alcohol) Hunger Vital Sign Answer Date Recorded Within the past 12 months, y ou worried that your food would run out before you got the money to buy more. Patient declined Within the past 12 months, t he food you bought just didn't last and you didn't have money to get more. Patient declined 01/2023 Childcare Answer Date Recorded Do you feel overwhelmed with taking care of a child, family member or friend? No 06/24/2023 Does your family need help f inding childcare? (Household - for ages 0-17 years) Not on file 06/24/2023 Clothing Answer Date Recorded Have you been unable to get clothing when it was really needed? No 06/24/2023 Is your family able to get c lothes or diapers when needed? (Household - for ages 0-17 years) Not on file 06/24/2023 Personal Safety Answer Date Recorded Do you feel unsafe or have concerns for your saf ety? No 06/24/2023 Do you have concerns for you r family's safety? (Household - for ages 0-17 years) Not on file 06/24/2023 Utilities Answer Date Recorded Do you have trouble paying y our heating, water, or electric bill? No 06/24/2023 Is your family able to pay t he heat, water, or electric bill? (Household - for ages 0-17 years) Not on file 06/24/2023 Does your family have access to good internet? (Household - for ages 0-17 years) Not on file 06/24/2023 Employment Status Answer Date Recorded Are you unemployed or without regular income? Ye s 06/24/2023 Does the household have a re gular source of income? (Household - for ages 0-17 years) Not on file 06/24/2023 Social Connections Answer Date Recorded How often do you feel lonely or isolated from those around you? Sometimes 06/24/2023 Financial Resource Strain Answer Date R ecorded Do you have any trouble payi ng for your medications, or do you think you might in the future? Yes 06/24/2023 Does your family have troubl e paying for medicine? (Household - for ages 0-17 years) Not on file 06/24/2023 Transportation Needs Answer Date Record ed READ ONLY Do you have troubl e getting a ride to medical visits or work? Never True 06/24/2023 Does your family have a hard time getting a ride to doctors visits? (Household - for ages 0-17 years) Not on file 06/24/2023 Has lack of transportation k ept you from medical appointments, meetings, work, or from getting things needed for daily living? Check all that apply. (Adult - for ages 18 years and over) Not on file 06/24/2023 Do you (or your family) have trouble finding or paying for a ride (transportation)? (Household - for ages 0-17 years) Not on file 06/24/2023 Housing Stability Answer Date Recorded Do you currently live in a s helter or have no steady place to sleep at night? No 06/24/2023 READ ONLY Do you think you a re at risk of becoming homeless? No 06/24/2023 Does your family worry about paying for your home or becoming homeless? (Household - for ages 0-17 years) Not on file 1 08/24/2022 Are you homeless or worried that you might be in the future? (Adult - for ages 18 years and over) Not on file Are you (or your family) kalin eless or worried that you might be in the future? (Household - for ages 0-17 years) Not on file Food Insecurity Answer Date Recorded Do you need food for this week? No 06/24/2023 Are you able to get enough f ood for your family? (Household - for ages 0-17 years) Not on file 06/24/2023 Does your family need food t his week? (Household - for ages 0-17 years) Not on file 06/24/2023 Do you always have enough fo od for your family? (Household - for ages 0-17 years) Not on file 06/24/2023 Comments No Sex and Gender Information Value Date Recorded Sex Assigned at Female 03/24/2023 7:53 AM EDT Legal Sex Female 5:13 AM EST Gender Identity Female 03/24/2023 7:53 AM EDT Sexual Orientation Straight 03/24/2023 7: 53 AM EDT documented as of this encounter Miscellaneous Notes * Telephone Encounter - Laisha Prado OSA - 06/18/2024 4:00 PM EDT Ok, will do, Thanks MAYRA Suarez 06/18/2024 4:00 PM * Telephone Encounter - Laisha Prado OSA - 06/18/2024 2:33 PM EDT REKHA VERA will want the pt to have the stool studies done to rule out c-diff or other infections. MAYRA Suarez 06/18/2024 2:33 PM * Telephone Encounter - Julieta Mcgrath CMA - 06/18/2024 9:11 AM EDT Pt notified of results note. She does have a questionable hx of UC. Still having some abd bloating causing mild abd pain. Denies loose stools, rectal bleeding and melena. Pt feels the linzess is helping move her bowels along. Will hold off on stool studies. I also let her know scheduling will reachout to move up colonoscopy. Pt questioning if umbilical hernia on CT could be causing any of her problems. Please advise. * Telephone Encounter - Norma Miller CRNP - 06/16/2024 12:[address] scan showed colitis from the the rectosigmoid colon to the anus. She does have a questionable history of UC. Please follow-up with the patient, she having any further episodes of abdominal pain. Any loose stools?--if so I would want to do stool samples. Pended if so. Ongoing rectal bleeding? Melena? Otherwise, we need to move up colonoscopy to [facility]. documented in this encounter Plan of Treatment Upcoming Encounters Date Type Department Care Team (Late st Contact Info) Description 07/13/2024 1:45 PM EST Appointment RadiologyLaya [address] [place] [address] 07/13/2024 3:15 PM EST Appointment Laya Victor [address] [place] [address] 07/17/2024 1:45 PM EST Imaging Radiology [address] [place] [address] 07/30/2024 4:00 PM EST Office Visit Gynecology/ObstetricsLaya [address] [place] [address] Geovanna Hancock PA-C [address] [place] [address] 08/03/2024 2:00 PM EST Office Visit Otolaryngology/Head & Neck/Facial Plastic Surgery [address] [facility] [place] [address] Teddy Martel MD [address] [facility] [place] [address] 09/09/2024 9:25 AM EST Office Visit PRODUCTION [facility]NER Urology Laya Arnold [address] [place] [address] Galdino Hernandez MD [address] [place] [address] Nurse Laya Urogyn [address] [place] [address] Scheduled Orders Name Type Priority Associated Diagnoses Orde r Schedule GASTROINTESTINAL PATHOGEN PANEL, STOOL Lab Routine Colitis Diarrhea, unspecified type Expected: 06/17/2024, Expires: 06/16/2025 CLOSTRIDIUM DIFFICILE, PCR Lab Routine Colitis Diarrhea, unspecified type Expected: 06/17/2024, Expires: 06/16/2025 Health Maintenance Due Date Last Done Comments Depression Screening 1975 HIV Screening 1978 Hepatitis C Screening 1981 DTap/Tdap Vaccines (1 - Tdap) 1982 Cologuard 2008 Fecal Occult Blood Test 2008 Zoster Vaccines (1 of 2) 2013 Hepatitis B Vaccine (2 of 3 - Hep B Twinrix 3-dose series) 01/26/2022 12/29/2021 Pneumococcal Vaccine: Pediatrics (0 to 5 Years) and At-Risk Patients (6 to 64 Years) (2 of 2 - PPSV23 or PCV20) 10/24/2022 08/29/2022 COVID-19 Vaccine (1 - season) 2024 Mammogram 06/28/2024 06/28/2023 Pap Smear 06/28/2026 06/28/2023 Diabetes Screening 05/11/2027 05/11/2024, 0 01/08/2024, 09/23/2023, Additional history exists Lipid Panel 05/01/2028 05/01/2023 Sigmoidoscopy 06/11/2028 06/11/2023 Cervical Cancer Screening 06/28/2028 HPV/Co-Test 06/28/2028 06/28/2023 Colonoscopy 06/26/2034 06/26/2024, 1103/2024, 07/19/2022 Colorectal Cancer Screening 06/26/2034 Influenza Vaccine (FLU shot) Completed , 07/23/2023, 07/23/2023 HPV (Gardasil) Vaccine Aged Out No lo nger eligible based on patient's age to complete this topic MENINGOCOCCAL (MENACTRA/MENVEO) Aged Out No longer eligible based on patient's age to complete this topic documented as of this encounter Medical Devices Not on filedocumented as of this encounter Visit Diagnoses Diagnosis Colitis- Primary Other and unspecified noninfectious gastroenteritis and colitis Diarrhea, unspecified type documented in this encounter Care Teams Infirmary Attendant Relationship Specialty Start Date End Date Emma Vu DO [address] [place] [address] PCP - General Family Medicine 01/07/23 documented as of this encounter
--- OUTSIDE RECORDS SUMMARY | 2024-11-06 06:45 | External Medical Summary | Summary of Care ---
Author Name Unknown Organization [facility] Address [address] [place] [address] Phone [phone] Care Team Providers Care Beck Operator Name Role Phone Emma Vuadelaida DO Primary Car e Provider Encounter Details Date Type Department Care Team (Late st Contact Info) Description 07/13/2024 Telephone Gynecology/Obstetrics, [place] [address] [facility] [place] [phone] Geovanna Hancock PA-C [address] [place] [address] Allergies Active Allergy Reactions Criticality Noted Date Comments Aspartame High 09/07/2022 Other Reaction(s): HEART RACING documented as of this encounter (statuses as of 07/27/2024) Medications Acetaminophen 500 MG Oral Tablet Take 1 Tablet by mouth every 4 hours as needed. 06/26/2022 Active LORazepam 0.5 MG Oral Tablet (Ativan) Take 1 Tablet by mouth every 6 hours as needed. 01/10/2023 Active Ondansetron HCl 4 MG Oral Tablet (Zofran) Take 1 Tablet by mouth every 8 hours as needed. 01/10/2023 Active Vortioxetine HBr 20 MG Oral Tablet Take 1 Tablet by mouth in the morning. Active sulfaSALAzine 250 MG OR TABS Take 1 Tablet by mouth in the morning. 01/15/2023 Active Rosuvastatin Calcium 10 MG Oral Tablet (Crestor) Take 1 Tablet by mouth every night at bedtime. 12/25/2023 Active buPROPion HCl ER (SR) 100 MG Oral Tablet Extended Release 12 Hour (Wellbutrin SR) Take 1 Tablet by mouth in the morning and 1 Tablet before bedtime. Active Omeprazole 20 MG Oral Tablet Delayed ReleaseIndicatio ns:Chronic constipation,Ext ernal thrombosed hemorrhoids,Abdo donn bloating,Gastroe sophageal reflux disease with esophagitis without hemorrhage Take 1 Tablet by mouth in the morning. 30 Tablet 3 06/03/2024 Active linaCLOtide 145 MCG Oral Capsule (Linzess)Indicat ions:Chronic constipation,Ext ernal thrombosed hemorrhoids,Abdo donn bloating,Gastroe sophageal reflux disease with esophagitis without hemorrhage Take 1 Capsule by mouth daily before breakfast. 30 Capsule 11 06/03/2024 Active Polyethylene Glycol 3350 17 GM/SCOOP Oral Powder (MiraLax) Take 17 g by mouth in the morning. One cap full in juice, to effect 1 stool per day. .. 07/01/2024 Active documented as of this encounter (statuses as of 07/27/2024) Active Problems Problem Noted Date Diagnosed Date Nausea and vomiting 01/25/2023 Rectal bleeding 01/25/2023 documented as of this encounter (statuses as of 07/27/2024) Immunizations Name Administration Dates Next Due Seasonal [...] you got the money to buy more. Never true 06/29/20 24 Within the past 12 months, t he food you bought just didn't last and you didn't have money to get more. Never true 06/29/2024 Childcare Answer Date Recorded Do you feel overwhelmed with taking care of a child, family member or friend? No 06/29/2024 Does your family need help f inding childcare? (Household - for ages 0-17 years) Not on file 06/29/2024 Clothing Answer Date Recorded Have you been unable to get clothing when it was really needed? No 06/29/2024 Is your family able to get c lothes or diapers when needed? (Household - for ages 0-17 years) Not on file 06/29/2024 Personal Safety Answer Date Recorded Do you feel unsafe or have concerns for your saf ety? No 06/29/2024 Do you have concerns for you r family's safety? (Household - for ages 0-17 years) Not on file 06/29/2024 Utilities Answer Date Recorded Do you have trouble paying y our heating, water, or electric bill? No 06/29/2024 Is your family able to pay t he heat, water, or electric bill? (Household - for ages 0-17 years) Not on file 06/29/2024 Does your family have access to good internet? (Household - for ages 0-17 years) Not on file 06/29/2024 Employment Status Answer Date Recorded Are you unemployed or without regular income? Ye s 06/29/2024 Does the household have a re gular source of income? (Household - for ages 0-17 years) Not on file 06/29/2024 Social Connections Answer Date Recorded How often do you feel lonely or isolated from those around you? Sometimes 06/29/2024 Financial Resource Strain Answer Date R ecorded Do you have any trouble payi ng for your medications, or do you think you might in the future? No 06/29/2024 Does your family have troubl e paying for medicine? (Household - for ages 0-17 years) Not on file 06/29/2024 Transportation Needs Answer Date Record ed Do you have trouble getting a ride to medical visits or work? (Adult - for ages 18 years and over) Not on file 06/29/2024 Does your family have a hard time getting a ride to doctors visits? (Household - for ages 0-17 years) Not on file 06/29/2024 Has lack of transportation k ept you from medical appointments, meetings, work, or from getting things needed for daily living? Check all that apply. No 06/29/2024 Do you (or your family) have trouble finding or paying for a ride (transportation)? (Household - for ages 0-17 years) Not on file 06/29/2024 Housing Stability Answer Date Recorded Do you currently live in a s helter or have no steady place to sleep at night? No 06/29/2024 Do you think you are at risk of becoming homeless? (Adult - for ages 18 years and over) Not on file 06/29/2024 Does your family worry about paying for your home or becoming homeless? (Household - for ages 0-17 years) Not on file 1 08/29/2023 Are you homeless or worried that you might be in the future? No 06/29/2024 Are you (or your family) kalin eless or worried that you might be in the future? (Household - for ages 0-17 years) Not on file Food Insecurity Answer Date Recorded Do you need food for this week? No 06/29/2024 Are you able to get enough f ood for your family? (Household - for ages 0-17 years) Not on file 06/29/2024 Does your family need food t his week? (Household - for ages 0-17 years) Not on file 06/29/2024 Do you always have enough fo od for your family? (Household - for ages 0-17 years) Not on file 06/29/2024 Comments No Sex and Gender Information Value Date Recorded Sex Assigned at Female 03/24/2023 7:53 AM EDT Legal Sex Female 5:13 AM EST Gender Identity Female 03/24/2023 7:53 AM EDT Sexual Orientation Straight 03/24/2023 7: 53 AM EDT documented as of this encounter Miscellaneous Notes * Telephone Encounter - Lizy Pozo LPN - 07/14/2024 3:17 PM EST Pt returned call, aware and agreeable to repeat imaging. Please call to assist with scheduling. * Telephone Encounter - Armando Blunt RN - 07/13/2024 4:24 PM EST TRC * Telephone Encounter - Armando Blunt RN - 07/13/2024 4:22 PM EST ----- Message from Geovanna Hancock sent at 07/13/2024 4:05 PM EST ----- Please inform patient I have reviewed the results of her recent ultrasound. Radiology is noting several, small simple cysts in her ovaries bilaterally. They are noting a 2 cm lesion in her left ovaryand recommending follow-up imaging in 6 months. If agreeable, I have placed the order and she may be scheduled. Thanks! Geovanna Hancock PA-C documented in this encounter Plan of Treatment Upcoming Encounters Date Type Department Care Team (Late st Contact Info) Description 07/30/2024 4:00 PM EST Office Visit Gynecology/Obstetrics, Laya [address] [place] [address] [place] [address] Geovanna Hancock PA-C [address] [place] [address] 09/09/2024 9:25 AM EST Office Visit MONITOR CAR OPERATOR Urology Laya Arnold [address] [place] [address] Galdino Hernandez MD [address] [place] [address] Nurse Laya Urogyn [address] [address] 07/16/2025 1:15 PM EST Imaging Radiology [facility] [address] [facility] [address] [place] [address] 07/16/2025 3:00 PM EST Imaging Radiology [facility] [address] [facility] [place] [address] Health Maintenance Due Date Last Done Comments [...] COVID-19 Vaccine (1 - season) 2024 Mammogram 07/13/2025 07/13/2024, 06/28/2023 Pap Smear 06/28/2026 06/28/2023 Diabetes Screening 05/11/2027 05/11/2024, 0 01/08/2024, 09/23/2023, Additional history exists Lipid Panel 05/01/2028 05/01/2023 Sigmoidoscopy 06/11/2028 06/11/2023 Cervical Cancer Screening 06/28/2028 HPV/Co-Test 06/28/2028 06/28/2023 Colonoscopy 06/26/2034 06/26/2024, 11/0 03/2024, 07/19/2022 Colorectal Cancer Screening 06/26/2034 Influenza Vaccine (FLU shot) Completed , 07/23/2023, 07/23/2023 HPV (Gardasil) Vaccine Aged Out No lo nger eligible based on patient's age to complete this topic MENINGOCOCCAL (MENACTRA/MENVEO) Aged Out No longer eligible based on patient's age to complete this topic documented as of this encounter Medical Devices Not on filedocumented as of this encounter Care Teams Beck Operator Relationship Specialty Start Date End Date Emma Vu DO [address] [place] [address] PCP - General Family Medicine 01/07/23 documented as of this encounter
--- OUTSIDE RECORDS SUMMARY | 2024-11-06 06:45 | External Medical Summary | Summary of Care ---
Author Name Unknown Organization [facility] Address [address] [facility] [address] Phone [phone] Care Team Providers Care Manager Civil Name Role Phone Emma Vu DO Primary Car e Provider Reason for Visit * Reason Onset Date Comments Appointment 07/29/2024 Encounter Details Date Type Department Care Team (Late st Contact Info) Description 07/29/2024 Telephone Gynecology/Obstetrics [facility] [address] [facility] [place] [address] Rosanna Moser PA-C [address] [facility] [place] [address] Appointment Allergies Active Allergy Reactions Criticality Noted Date Comments Aspartame High 09/07/2022 Other Reaction(s): HEART RACING documented as of this encounter (statuses as of 10/29/2024) Medications Acetaminophen 500 MG Oral Tablet Take [...] as of this encounter (statuses as of 10/29/2024) Active Problems Problem Noted Date Diagnosed Date Nausea and vomiting 01/25/2023 Rectal bleeding 01/25/2023 documented as of this encounter (statuses as of 10/29/2024) Immunizations Name Administration Dates Next Due Seasonal [...] ages 0-17 years) Not on file 06/29/2024 Food Insecurity Answer Date Recorded Within the past 12 months, y ou worried that your food would run out before you got the money to buy more. Never true 06/29/20 24 Within the past 12 months, t he food you bought just didn't last and you didn't have money to get more. Never true 06/29/2024 Do you need food for this week? No 06/29/2024 Comments No Sex and Gender Information Value Date Recorded Sex Assigned at Female 03/24/2023 7:53 AM EDT Legal Sex Female 5:13 AM EST Gender Identity Female 03/24/2023 7:53 AM EDT Sexual Orientation Straight 03/24/2023 7: 53 AM EDT documented as of this encounter Miscellaneous Notes * Telephone Encounter - Marly Pérez OSA - 07/29/2024 1:34 PM EST Pt called in she had to cancel due to an insurance issue pt needs another appointment someone in August if possible documented in this encounter Plan of Treatment Upcoming Encounters Date Type Department Care Team (Late st Contact Info) Description 07/16/2025 1:15 PM EST Imaging Radiology [address] [place] [address] 07/16/2025 3:00 PM EST Imaging Radiology [address], [place] [address] [place] [phone] Health Maintenance Due Date Last Done Comments Depression Screening 1975 HIV Screening 1978 Hepatitis C Screening 1981 DTap/Tdap Vaccines (1 - Tdap) 1982 Cologuard 2008 Fecal Occult Blood Test 2008 Zoster Vaccines (1 of 2) 2013 Hepatitis B Vaccine (2 of 3 - Hep B Twinrix 3-dose series) 01/26/2022 12/29/2021 Pneumococcal Vaccine: 50+ Years (2 of 2 - PPSV23) 10/24/2022 08/29/2022 COVID-19 Vaccine (1 - season) [...] on patient's age to complete this topic Meningitis B Vaccine (Bexsero/Trumemba) Aged Out No longer eligible based on patient's age to complete this topic documented as of this encounter Medical Devices Not on filedocumented as of this encounter Care Teams Manager Civil Relationship Specialty Start Date End Date Emma Vu DO [address] [place] [address] PCP - General Family Medicine 01/07/23 documented as of this encounter
--- OUTSIDE RECORDS SUMMARY | 2024-11-06 06:45 | External Medical Summary | Summary of Care ---
Author Name Unknown Organization [facility] Address [address] [place] [address] Phone [phone] Care Team Providers Care Semiconductor Processing Technician Name Role Phone Emma Vu Sandie Wilman DO Primary Car e Provider Reason for Referral * Evaluate & Treat - Unlimited Visits (Within 10 days (routine)) - Authorized Specialty Diagnoses / Procedures Referred By Kate williamson Referred To Contact PROCESS DEVELOPER - Urogynecology / Gynecology Urology Diagnoses Stress incontinence Drea Gage PA-C [address] [place] [address] Phone: tel: fax: Referral ID Status Reason Start Date Expiration Date Visits Requested Visits Authorized [id number] Authorized Specialty Services Required 4 [phone] Question Answer Referral Priority Within 10 days (routine) Where should this appointment be scheduled? [facility] What condition is the patient being referred for? Urinary Incontinence/Overactive Bladder Reason for Visit * Reason Comments Environmental Emergencies Assistant Return wellness Encounter Details Date Type Department Care Team (Latest Contact Info) Description 06/30/2024 9:00 AM EST Office Visit Gynecology/Obstetric Laya stevenson [address] [place] [address] Drea Gage PA-C [address] [place] [address] Women's annual routine gynecological examination*; Encounter for screening mammogram for malignant neoplasm of breast; Hot flashes due to menopause; Stress incontinence; Left ovarian cyst Allergies Active Allergy Reactions Criticality Noted Date Comments Aspartame High 09/07/2022 Other Reaction(s): HEART RACING documented as of this encounter (statuses as of 07/15/2024) Medications Acetaminophen 500 MG Oral Tablet Take 1 Tablet by mouth every 4 hours as needed. 2 Active LORazepam 0.5 MG Oral Tablet (Ativan) Take 1 Tablet by mouth every 6 hours as needed. 3 Active Ondansetron HCl 4 MG Oral Tablet (Zofran) Take 1 Tablet by mouth every 8 hours as needed. 3 Active Vortioxetine HBr 20 MG Oral Tablet Take 1 Tablet by mouth in the morning. Active sulfaSALAzine 250 MG OR TABS Take 1 Tablet by mouth in the morning. 3 Active Rosuvastatin Calcium 10 MG Oral Tablet (Crestor) Take 1 Tablet by mouth every night at bedtime. 4 Active buPROPion HCl ER (SR) 100 MG Oral Tablet Extended Release 12 Hour (Wellbutrin SR) Take 1 Tablet by mouth in the morning and 1 Tablet before bedtime. Active Omeprazole 20 MG Oral Tablet Delayed ReleaseIndicati ons:Chronic constipation,Ex ternal thrombosed hemorrhoids,Abd ominal bloating,Gastro esophageal reflux disease with esophagitis without hemorrhage Take 1 Tablet by mouth in the morning. 30 Tablet 3 4 Active linaCLOtide 145 MCG Oral Capsule (Linzess)Indica tions:Chronic constipation,Ex ternal thrombosed hemorrhoids,Abd ominal bloating,Gastro esophageal reflux disease with esophagitis without hemorrhage Take 1 Capsule by mouth daily before breakfast. 30 Capsule 11 4 Active Celecoxib 200 MG Oral Capsule (CeleBREX) Take 1 Capsule by mouth in the morning. One tablet or two tablets depends on her pain level-. 3 024 Discontinued Semaglutide(0.2 5 or 0.5MG/DOS) 2 MG/1.5ML Solution Pen-injector (Ozempic) Inject 0.5 mg under the skin once a week. Discontinued traZODone HCl 50 MG Oral Tablet (Desyrel) Take 1 Tablet by mouth at bedtime. Discontinued Multivitamin Adult Oral Tablet Chewable Take by mouth. Discontinued documented as of this encounter (statuses as of 07/15/2024) Active Problems Problem Noted Date Diagnosed Date Nausea and vomiting 01/25/2023 Rectal bleeding 01/25/2023 documented as of this encounter (statuses as of 07/15/2024) Immunizations Name Administration Dates Next Due Seasonal Influenza, PF, 6 M & above, IM , (FluLaval or Fluzone) 07/23/2023 Seasonal Influenza, Trivalent, (IIV3), PF, (Fluz one) 06/03/2024 documented as of this encounter Social History Tobacco Use Types Packs/Day Years Used Date Smoking Tobacco: Never Smokeless Tobacco: Never Tobacco Cessation:Counseling Given: Not Answered Alcohol Use Standard Drinks/Week Comments Not Currently [...] AM EDT documented as of this encounter Last Filed Vital Signs Vital Sign Reading Time Taken Comments Blood Pressure 136/82 06/30/2024 8:51 AM EST Pulse - - Temperature 36.6 C (97.9 F) 06/30/2024 8:51 AM ES T Respiratory Rate - - Oxygen Saturation - - Inhaled Oxygen Concentration - - Weight 104.8 kg (231 lb) 06/30/2024 8:51 AM EST Height - - Body Mass Index 37.28 06/26/2024 10:11 AM EST documented in this encounter Progress Notes * Drea Gage PA-C - 06/30/2024 9:14 AM EST Corrina Harmon 06/30/2024 CC: Women's Wellness Exam HPI: Corrina Harmon is a pleasant 58 year old postmenopausal female here for her women's wellness exam. She has several concerns she wishes to address at today's visit. She has been postmenopausal for 4 years. Denies any vaginal bleeding since. Is reporting an increase in hot flashes over the last year. Hot flashes are occurring worse at night. She has them infrequently throughout the day. She had a CT scan completed 06/09/2024 and noted a small 2.4 cm adnexal cyst on her left ovary. Didnot have follow-up ultrasound. Does occasionally have pain on that side. Does have PMHx significantfor ulcerative colitis and other GI complaints. She also reports some vaginal odor and burning, but thinks this is more related to urinary symptomsversus vaginal infection. She has had urinary leakage and incontinence requiring her to wear a pad daily. She reports leakage is worse when she laughs, coughs, or stands up. She has seen a urologist for this in the past as well as pelvic organ prolapse, but has not seen them in the last year. She is not currently sexually active with no concerns for STIs. Performs SBE. Notes no changes or concerns. Her last Mammogram was 06/28/2023 - BIRADS 1. Agreeable to schedule. She denies a hx of abnormal Pap smears. Last Pap: 06/28/2023 - NILM/Neg HPV. Due 2027. Last colonoscopy was 06/26/2024. OB History Para Term AB Living 4 2 2 2 2 SAB IAB Ectopic Multiple Live Births 2 # Outcome Date GA Lbr Srini/2nd Weight Sex Type Anes PTL Lv 4 Term 3 Term 2 SAB 1 SAB Past Medical History: Diagnosis Date Anxiety Hyperlipidemia INFORMATION borderline diabetes Motion sickness Nausea and vomiting PONV (postoperative nausea and vomiting) Past Surgical History: Procedure Laterality Date ANORECTAL EXAM ,DIAG, REQUIRING ANESTHESIA N/A 07/12/2023 ANORECTAL EXAM UNDER ANESTHESIA performed by Francoise Kamara MD at OR [facility] COLONOSCOPY, DIAGNOSTIC (RECTUM) 06/26/2024 COLONOSCOPY FLEXIBLE PROXIMAL DIAGNOSTIC performed by Niko Ashraf MD at [facility] EGD, FLEXIBLE, DIAGNOSTIC 06/26/2024 ESOPHAGOGASTRODUODENOSCOPY (EGD), FLEXIBLE, TRANSORAL, DIAGNOSTIC performed by Niko Ashraf MD at [facility] HEMORRHOIDECTOMY, INTERNAL, 2 + COLUMNS N/A 07/12/2023 HEMORRHOIDECTOMY EXTERNAL AND INTERNAL COMPLEX performed by Francoise Kamara MD at [facility] INFORMATION 1988 tubal INFORMATION 1989 sinus surgery INFORMATION 12/2021 colonscopy INFORMATION 07/2022 colonoscopy INFORMATION 1975 appendix removed SIGMOIDOSCOPY, DIAGNOSTIC 06/11/2023 diverticulosis/hemorrhoids/biopsies normal/SIGMOIDOSCOPY FLEXIBLE DIAGNOSTIC performed by Niko Ashraf MD at [facility]COPY [facility] Family History Family History Problem Relation Name Age of Onset Diabetes Mother Rheum arthritis Mother Stroke Father Heart Disorder Father Prostate cancer Father Melanoma Father Breast Cancer Aunt (Maternal) Other (breast cysts) Aunt (Maternal) unsure of any breast cancer Other (breast reduction) Aunt (Maternal) Ovarian cancer No significant family history Endometrial cancer No significant family history Uterine cancer No significant family history Colon cancer No significant family history Social History Social History Socioeconomic History Marital status: Tobacco Use Smoking status: Never Smokeless tobacco: Never Vaping Use Vaping status: Never Used Substance and Sexual Activity Alcohol use: Not Currently Drug use: Never Sexual activity: Not Currently Social Needs Financial Resource Strain: Low Risk (06/29/2024) Financial Resource Strain Do you have any trouble paying for your medications, or do you think you might in the future? (Adult - for ages 18 years and over): No Food Insecurity: No Food Insecurity (06/29/2024) Food Insecurity Do you need food for this week? (Adult - for ages 18 years and over): No Transportation Needs: No Transportation Needs (06/29/2024) Transportation Needs Has lack of transportation kept you from medical appointments, meetings, work, or from getting things needed for daily living? Check all that apply. (Adult - for ages 18 years and over): No Social Connections: Socially Integrated (06/29/2024) Social Connections How often do you feel lonely or isolated from those around you? (Adult - for ages 18 years and over): Sometimes Housing Stability: Low Risk (06/29/2024) Housing Stability Do you currently live in a jail or have no steady place to sleep at night? (Adult - for ages 18 years and over): No Are you homeless or worried that you might be in the future? (Adult - for ages 18 years and over): No Medications Current Outpatient Medications Medication Sig Dispense Refill Acetaminophen 500 MG Oral Tablet Take 1 Tablet by mouth every 4 hours as needed. Celecoxib 200 MG Oral Capsule (CeleBREX) Take 1 Capsule by mouth in the morning. One tablet or two tablets depends on her pain level-. LORazepam 0.5 MG Oral Tablet (Ativan) Take 1 Tablet by mouth every 6 hours as needed. Ondansetron HCl 4 MG Oral Tablet (Zofran) Take 1 Tablet by mouth every 8 hours as needed. Vortioxetine HBr 20 MG Oral Tablet Take 1 Tablet by mouth in the morning. sulfaSALAzine 250 MG OR TABS Take 1 Tablet by mouth in the morning. Semaglutide(0.25 or 0.5MG/DOS) 2 MG/1.5ML Solution Pen-injector (Ozempic) Inject 0.5 mg under the skin once a week. (Patient not taking: Reported on 06/03/2024) traZODone HCl 50 MG Oral Tablet (Desyrel) Take 1 Tablet by mouth at bedtime. Rosuvastatin Calcium 10 MG Oral Tablet (Crestor) Take 1 Tablet by mouth every night at bedtime. Multivitamin Adult Oral Tablet Chewable Take by mouth. (Patient not taking: Reported on 06/26/2024) buPROPion HCl ER (SR) 100 MG Oral Tablet Extended Release 12 Hour (Wellbutrin SR) Take 1 Tablet by mouth in the morning and 1 Tablet before bedtime. Omeprazole 20 MG Oral Tablet Delayed Release Take 1 Tablet by mouth in the morning. (Patient not taking: Reported on 06/22/2024) 30 Tablet 3 linaCLOtide 145 MCG Oral Capsule (Linzess) Take 1 Capsule by mouth daily before breakfast. 30 Capsule 11 No current facility-administered medications for this visit. Allergies Review of patient's allergies indicates: Allergen Reactions Aspartame Other Reaction(s): HEART RACING ROS See HPI above for pertinent positives/negatives. Physical Exam BP 136/82 | Temp 36.6 C (97.9 F) | Wt 104.8 kg (231 lb) | BMI 37.28 kg/m | BSA 2.21 m General: awake, alert, and oriented x 3, NAD Neck: supple without adenopathy, thyroid normal size, non-tender, without nodularity Cardiac: regular rate and rhythm no murmur Lungs: clear to auscultation Abdomen: soft, non-tender, normal bowel sounds, no masses or organomegaly, no inguinal nodes Neuro: no focal motor/sensory deficits, gait normal Breasts: no nipple retraction or dimpling, no nipple discharge or bleeding, no axillary or supraclavicular adenopathy, normal to palpation without dominant masses Pelvic: external genitalia and vagina anatomy within normal limits, no vulvar lesions, no significant vaginal discharge, cervix normal in appearance without lesions or purulent discharge, uterus is normal size, shape, and consistency, adnexa normal bilaterally, no abnormal pelvic masses. Rectal: perianal area normal, anus normal Eyeglass Lens Cutter Documentation Patient offered road roller engineer and accepted. Name of road roller engineer: Maribel Parish LPN. Assessment/Plan Women's annual routine gynecological examination (Primary) - Pap due 2027 - Colonoscopy up to date - Declines STI testing at this time. - Patient is postmenopausal. To reach out with any vaginal bleeding for further evaluation. Encounter for screening mammogram for malignant neoplasm of breast - MAMMOGRAM SCREENING CONCHA BILATERAL - Encouraged regular breast self-awareness. Encouraged annual mammograms. Order placed and patient to schedule. Hot flashes due to menopause - Discussed treatment options to include lifestyle modifications and SSRIs. She is on several psychiatric medications to include Wellbutrin ER and Lorazepam. - Discussed gold standard treatment to include HRT/ERT. She is open to discussing further at a follow-up appointment. Stress incontinence - UROGYNECOLOGY CLINIC REFERRAL OP (FEMALE ONLY) Left ovarian cyst - US PELVIS TRANS-VAGINAL NON-OB; Future; Expected date: 06/30/2024 - Will complete U/S to evaluate small left ovarian cyst further. Can discuss results at follow-up appointment. - Also discussed non PEST CONTROL OPERATOR causes of pelvic pain. Follow-Up: RTO in 4 weeks to discuss U/S results and HRT, and RTO sooner PRN with concern. Call theoffice with any problems, questions, concerns. Drea Gage PA-C 06/30/2024 documented in this encounter Nursing Notes * Dolly Qureshi CMA - 06/30/2024 8:54 AM EST Chief Complaint Patient presents with Environmental Emergencies Assistant Return wellness Patient identified Corrina Guillermo Beaulieukayla by name and date of . Patient here for yearly exam. Complaints: Pt reports having hot flashes and also has had some cold sweats. Last pap: 06/28/2023 neg/neg Last Mammogram: 06/28/2023 Last Dexa: n/a Last Colonoscopy: 06/26/2024 Type of Contraception: postmenopausal Pt here for chlamydia screen. no My [employer] is a way you can talk to your provider online through e-mail. May I activate it for you? ALREADY ACTIVE Do you need any refills while you are here? no Dolly Qureshi CMA 06/30/2024 8:54 AM documented in this encounter Miscellaneous Notes * Addendum Note - Drea Gage PA-C - 07/15/2024 11:07 AM EST Addended by: DREA GAGE on: 07/15/2024 11:07 AM Modules accepted: Orders * Result Encounter Note - Drea Gage PA-C - 07/15/2024 11:07 AM EST Please let patient know her recent mammogram resulted normal. Radiology recommended continuing withannual screening mammograms. I have placed the order if she would like to schedule for next year. Thanks! Drea Gage PA-C * Addendum Note - Drea Gage PA-C - 07/13/2024 4:05 PM EST Addended by: DREA GAGE on: 07/13/2024 04:05 PM Modules accepted: Orders documented in this encounter Plan of Treatment Upcoming Encounters Date Type Department Care Team (Late st Contact Info) Description 07/17/2024 1:45 PM EST Imaging Radiology [facility] 1st [facility] [address] [place] [address] 07/30/2024 4:00 PM EST Office Visit Gynecology/Obstetrics, [place] [place] [id number] Drea Gage PA-C [address] [place] [address] 08/03/2024 2:00 PM EST Office Visit Otolaryngology/Head & Neck/Facial Plastic Surgery [address] [place] [address] Teddy Martel MD [address] [place] [address] 09/09/2024 9:25 AM EST Office Visit PEST CONTROL OPERATOR [facility] [address] [facility] [place] [id number] Galdino Hernandez MD [address] [place] [address] Nurse Laya Urogyn [address] [facility] [place] [address] 01/13/2025 1:15 PM EDT [facility] [address] [place] [id number] Scheduled Orders Name Type Priority Associated Diagnoses Orde r Schedule US PELVIS TRANS-VAGINAL NON-OB Medical Imaging Routine Left ovarian cyst Expected: 01/10/2025, Expires: 08/12/2025 MAMMOGRAM SCREENING CONCHA BILATERAL Medical Imaging Routine Encounter for screening mammogram for malignant neoplasm of breast Expected: 07/14/2025 (Approximate), Expires: 08/14/2025 Scheduled Referrals Name Type Priority Associated Diagnoses Orde r Schedule UROGYNECOLOGY CLINIC REFERRAL OP (FEMALE ONLY) Referral Within 10 days (routine) Stress incontinence Ordered: 06/30/2024 Health Maintenance Due Date Last Done Comments [...] Not on filedocumented as of this encounter Procedures Procedure Name Priority Date/Time Associated Diagnosis Comments MAMMOGRAM SCREENING CONCHA BILATERAL Routine 07/13/2024 3:54 PM EST Encounter for screening mammogram for malignant neoplasm of breast documented in this encounter Results * MAMMOGRAM SCREENING CONCHA BILATERAL (07/13/2024 3:54 PM EST) Anatomical Region Laterality Modality Breast Bilateral Mammography Narrative 07/15/2024 9:30 AM EST Result MAMMOGRAM SCREENING CONCHA BILATERAL History Encounter for screening mammogram for malignant neoplasm of breast Family medical history includes breast cancer in aunt (maternal). Films Compared 06/28/2023 MAMMOGRAM SCREENING CONCHA BILATERAL and 09/04/2022 RADIOLOGY EXAM - MAMMOGRAPHY (IMAGES ONLY, NO REPORT) Findings There are scattered areas of fibroglandular density. There is no evidence of suspicious masses, calcifications, or other abnormal findings. Impression Bilateral No mammographic evidence of malignancy. BI-RADS Category: 1 - Negative. Recommendation Screening mammogram in 1 year is recommended for both breasts. Digital breast tomosynthesis was performed. This digital mammogram has been analyzed with the computer aided detection system. Breast tissue can be either dense or not dense. Dense tissue makes it harder to find breast cancer on a mammogram and also raises the risk of developing breast cancer. Your breast tissue is not dense. Talk to your healthcare provider about breast density, risks for breast cancer, and your individual situation. This examination was performed at [facility], [address] [place] [id number]. [phone] Drea Gage PA-C RAD MAMMOGRAPHY F inal Result * US PELVIS TRANS-VAGINAL NON-OB (07/13/2024 2:39 PM EST) Anatomical Region Laterality Modality Pelvis, Body Ultrasound 07/13/2024 2:50 PM EST Impressions 07/13/2024 3:42 PM EST IMPRESSION: Simple cystic structure in the left adnexa, potentially representing a peritoneal inclusion cyst or exophytic ovarian cyst. A follow-up ultrasound is recommended in 6-12 months. I have personally reviewed this examination and agree with the resident/fellow physician's interpretation. Narrative 07/13/2024 3:42 PM EST EXAM: US PELVIS TRANS-VAGINAL NON-OB - 07/13/2024 HISTORY: Left Ovarian TECHNIQUE: Real time transvaginal sonogram of the pelvis was performed. COMPARISON: CT abdomen/pelvis 06/09/2024 FINDINGS: LMP: Postmenopausal UTERUS: 7.4 cm x 4.5 cm x 5.6 cm MYOMETRIUM: Heterogeneous ENDOMETRIUM: 3.8 mm in thickness, within normal limits. RIGHT OVARY: 1.6 cm x 0.7 cm x 1.3 cm, 0.8 ml Multiple subcentimeter simple cysts visualized. LEFT OVARY: 4.0 cm x 2.8 cm x 3.7 cm, 21.6 ml There are multiple subcentimeter simple cysts within the ovary. Additionally, there is a 2.8 x 3.7 x 2.6 cm lobulated cystic structure partially surrounding the ovary. It is unclear if this structure arises from the ovary. MISCELLANEOUS: No significant free fluid. Procedure Note Darryl Liao MD - 07/13/2024 EXAM: US PELVIS TRANS-VAGINAL NON-OB - 07/13/2024 HISTORY: Left Ovarian TECHNIQUE: Real time transvaginal sonogram of the pelvis was performed. COMPARISON: CT abdomen/pelvis 06/09/2024 FINDINGS: LMP: Postmenopausal UTERUS: 7.4 cm x 4.5 cm x 5.6 cm MYOMETRIUM: Heterogeneous ENDOMETRIUM: 3.8 mm in thickness, within normal limits. RIGHT OVARY: 1.6 cm x 0.7 cm x 1.3 cm, 0.8 ml Multiple subcentimeter simple cysts visualized. LEFT OVARY: 4.0 cm x 2.8 cm x 3.7 cm, 21.6 ml There are multiple subcentimeter simple cysts within the ovary.Additionally, there is a 2.8 x 3.7 x 2.6 cm lobulated cystic structurepartially surrounding the ovary. It is unclear if this structure arisesfrom the ovary. MISCELLANEOUS: No significant free fluid. IMPRESSION IMPRESSION: Simple cystic structure in the left adnexa, potentially representing aperitoneal inclusion cyst or exophytic ovarian cyst. A follow-upultrasound is recommended in 6-12 months. I have personally reviewed this examination and agree with the resident/fellow physician's interpretation. us Drea Gage PA-C RAD ULTRASOUND F inal Result documented in this encounter Visit Diagnoses Diagnosis Women's annual routine gynecological examination- Primary Encounter for screening mammogram for malignant neoplasm of breast Other screening mammogram Hot flashes due to menopause Stress incontinence Female stress incontinence Left ovarian cyst Other and unspecified ovarian cyst Left ovarian cyst Other and unspecified ovarian cyst documented in this encounter Care Teams Semiconductor Processing Technician Relationship Specialty Start Date End Date Emma Vu DO [address] [place] [address] PCP - General Family Medicine 01/07/23 documented as of this encounter"
--- OUTSIDE RECORDS SUMMARY | 2024-11-06 06:45 | External Medical Summary | Summary of Care ---
Author Name Unknown Organization [facility] Address [address] [place] [address] Phone [phone] Care Team Providers Care Master Glazier Name Role Phone Emma Vu Sandie Wilman DO Primary Car e Provider Reason for Referral * Evaluate & Treat - Unlimited Visits (Within 10 days (routine)) - Authorized Specialty Diagnoses / Procedures Referred By Kate williamson Referred To Contact WATCH CRYSTAL GRINDER - Urogynecology / Gynecology Urology Diagnoses Stress incontinence Geovanna Hancock PA-C [address] [place] [address] Phone: tel: fax: Referral ID Status Reason Start Date Expiration Date Visits Requested Visits Authorized [id number] Authorized Specialty Services Required 4 [phone] Question Answer Referral Priority Within 10 days (routine) Where should this appointment be scheduled? [facility] What condition is the patient being referred for? 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 Encounter Details Date Type Department Care Team (Latest Contact Info) Description 06/30/2024 9:00 AM EST Office Visit Gynecology/Obstetric Laya stevenson [address] [place] [address] Geovanna Hancock PA-C [address] [place] [address] Women's annual routine gynecological examination*; Encounter for screening mammogram for malignant neoplasm of breast; Hot flashes due to menopause; Stress incontinence; Left ovarian cyst Allergies Active Allergy Reactions Criticality Noted Date Comments Aspartame High 09/07/2022 Other Reaction(s): HEART RACING documented as of this encounter (statuses as of 06/30/2024) Medications Acetaminophen 500 MG Oral Tablet Take 1 Tablet by mouth every 4 hours as needed. 2 Active Celecoxib 200 MG Oral Capsule (CeleBREX) Take 1 Capsule by mouth in the morning. One tablet or two tablets depends on her pain level-. 3 Active LORazepam 0.5 MG Oral Tablet (Ativan) [...] by mouth in the morning. 3 Active Semaglutide(0.25 or 0.5MG/DOS) 2 MG/1.5ML Solution Pen-injector (Ozempic) Inject 0.5 mg under the skin once a week. Active traZODone HCl 50 MG Oral Tablet (Desyrel) Take 1 Tablet by mouth at bedtime. Active Rosuvastatin Calcium 10 MG Oral Tablet (Crestor) Take 1 Tablet by mouth every night at bedtime. 4 Active Multivitamin Adult Oral Tablet Chewable Take by mouth. Active buPROPion HCl ER (SR) 100 MG Oral Tablet Extended Release 12 Hour (Wellbutrin SR) Take 1 Tablet by mouth in the morning and 1 Tablet before bedtime. Active Omeprazole 20 MG Oral Tablet Delayed ReleaseIndicatio ns:Chronic constipation,Ext ernal thrombosed hemorrhoids,Abdo donn bloating,Gastroe sophageal reflux disease with esophagitis without hemorrhage Take 1 Tablet by mouth in the morning. 30 Tablet 3 4 Active Additional Information Patient not taking.Reported on 06/22/2024 linaCLOtide 145 MCG Oral Capsule (Linzess)Indicat ions:Chronic constipation,Ext ernal thrombosed hemorrhoids,Abdo donn bloating,Gastroe sophageal reflux disease with esophagitis without hemorrhage Take 1 Capsule by mouth daily before breakfast. 30 Capsule 11 4 Active documented as of this encounter (statuses as of 06/30/2024) Active Problems Problem Noted Date Diagnosed Date Nausea and vomiting 01/25/2023 Rectal bleeding 01/25/2023 documented as of this encounter (statuses as of 06/30/2024) Immunizations Name Administration Dates Next Due Seasonal [...] documented in this encounter Progress Notes * Geovanna Hancock PA-C - 06/30/2024 9:14 AM EST Corrina [...] performed by Francoise Kamara MD at OR [facility] COLONOSCOPY, DIAGNOSTIC (RECTUM) 06/26/2024 COLONOSCOPY FLEXIBLE PROXIMAL DIAGNOSTIC performed by Niko Ashraf MD at ENDOSCOPY [facility] EGD, FLEXIBLE, DIAGNOSTIC 06/26/2024 ESOPHAGOGASTRODUODENOSCOPY (EGD), FLEXIBLE, TRANSORAL, DIAGNOSTIC performed by Niko Ashraf MD at ENDOSCOPY [facility] HEMORRHOIDECTOMY, INTERNAL, 2 + COLUMNS N/A 07/12/2023 HEMORRHOIDECTOMY EXTERNAL AND INTERNAL COMPLEX performed by Francoise Kamara MD at [facility] INFORMATION 1988 tubal INFORMATION 1989 sinus surgery INFORMATION 12/2021 colonscopy INFORMATION 07/2022 colonoscopy INFORMATION 1975 appendix removed SIGMOIDOSCOPY, DIAGNOSTIC 06/11/2023 diverticulosis/hemorrhoids/biopsies normal/SIGMOIDOSCOPY FLEXIBLE DIAGNOSTIC performed by Niko Ashraf MD at ENDOSCOPY [facility] Family History Family History Problem Relation Name [...] Stability Do you currently live in a alf or have no steady place to sleep [...] masses. 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 Name of wood carving lathe operator: Maribel Parish LPN. Assessment/Plan Women's annual routine [...] at follow-up appointment. - Also discussed non OVERHEAD CRANE TRUCK LOADER causes of pelvic pain. Follow-Up: RTO in 4 weeks to discuss U/S results and HRT, and RTO sooner PRN with concern. Call theoffice with any problems, questions, concerns. 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 Patient here for yearly exam. Complaints: Pt reports having hot flashes and also has had some cold sweats. Last pap: 06/28/2023 neg/neg Last Mammogram: 06/28/2023 Last Dexa: n/a Last Colonoscopy: 06/26/2024 Type of Contraception: postmenopausal Pt here for chlamydia screen. no My [facility] is a way you can talk to your provider online through e-mail. May I activate it for you? ALREADY ACTIVE Do you need any refills while you are here? no Dolly Qureshi CMA 06/30/2024 8:54 AM documented in this encounter Plan of Treatment Upcoming Encounters Date Type Department Care Team (Late st Contact Info) Description 07/01/2024 1:30 PM EST Office Visit Gastroenterology, [facility] [address] [place] [address] Norma Miller CRNP [address] [facility] [place] [address] 07/13/2024 1:45 PM EST Appointment Radiology, [place] [address] [place] [address] 07/13/2024 3:15 PM EST Appointment Radiology, [place] [address] [facility] [place] [address] 07/17/2024 1:45 PM EST Imaging Radiology [address] [facility] [place] [address] 07/30/2024 4:00 PM EST Office Visit Gynecology/Obstetrics, [place] [address] [place] [address] Geovanna Hancock PA-C [address] [facility] [place] [address] 08/03/2024 2:00 PM EST Office Visit Otolaryngology/Head & Neck/Facial Plastic Surgery [address] [facility] [place] [address] Teddy Martel MD [address] [facility] [place] [address] 09/09/2024 9:25 AM EST Office Visit OVERHEAD CRANE TRUCK LOADER U[place] [address] [place] [address] Galdino Hernandez MD [address] [place] [address] Nurse Laya Urogyn [address] [place] [address] Scheduled Orders Name Type Priority Associated Diagnoses Orde r Schedule MAMMOGRAM SCREENING CONCHA BILATERAL Medical Imaging Routine Encounter for screening mammogram for malignant neoplasm of breast Ordered: 06/30/2024 US PELVIS TRANS-VAGINAL NON-OB Medical Imaging Routine Left ovarian cyst Expected: 06/30/2024, Expires: 07/30/2025 Scheduled Referrals Name Type Priority Associated Diagnoses [...] as of this encounter Visit Diagnoses Diagnosis Women's annual routine gynecological examination- Primary Encounter for screening mammogram for malignant neoplasm of breast Other screening mammogram Hot flashes due to menopause Stress incontinence Female stress incontinence Left ovarian cyst Other and unspecified ovarian cyst documented in this encounter Care Teams Master Glazier Relationship Specialty Start Date End Date Emma Vu DO [address] [place] [address] PCP - General Family Medicine 01/07/23 documented as of this encounter"
--- OUTSIDE RECORDS SUMMARY | 2024-11-06 06:45 | External Medical Summary | Summary of Care ---
Author Name Unknown Organization [facility] Address [address] [place] [address] Phone [phone] Care Team Providers Care Wheel Loader Operator Name Role Phone Emma Vu DO Primary Car e Provider Reason for Visit * Reason Comments Follow Up Pt here to f/u for c onstipation, abd bloating and LLQ pain. Saw Superintendent Tests yesterday and they ordered an US LLQ for her ovary. Pt still having abd bloating and constipation/straining. Mild epigastric pain today. Encounter Details Date Type Department Care Team (Late st Contact Info) Description 07/01/2024 1:30 PM EST Office Visit Gastroenterology, [facility] 132 [facility] [place] [address] Norma Miller CRNP 132 [facility] [place] [address] Irritable bowel syndrome with constipation*; External thrombosed hemorrhoids; Gastroesophageal reflux disease without esophagitis Allergies Active Allergy Reactions Criticality Noted Date Comments Aspartame High 09/07/2022 Other Reaction(s): HEART RACING documented as of this encounter (statuses as of 07/01/2024) Medications Acetaminophen 500 MG Oral Tablet Take [...] before breakfast. 30 Capsule 11 4 Active Polyethylene Glycol 3350 17 GM/SCOOP Oral Powder (MiraLax) Take 17 g by mouth in the morning. One cap full in juice, to effect 1 stool per day. .. 4 Active Celecoxib 200 MG Oral Capsule (CeleBREX) Take 1 Capsule by mouth in the morning. One tablet or two tablets depends on her pain level-. 3 Discontinued Semaglutide(0.2 5 or 0.5MG/DOS) 2 MG/1.5ML Solution Pen-injector (Ozempic) Inject 0.5 mg under the skin once a week. Discontinued traZODone HCl 50 MG Oral Tablet (Desyrel) Take 1 Tablet by mouth at bedtime. Discontinued Multivitamin Adult Oral Tablet Chewable Take by mouth. Discontinued documented as of this encounter (statuses as of 07/01/2024) Active Problems Problem Noted Date Diagnosed Date Nausea and vomiting 01/25/2023 Rectal bleeding 01/25/2023 documented as of this encounter (statuses as of 07/01/2024) Immunizations Name Administration Dates Next Due Seasonal [...] Sign Reading Time Taken Comments Blood Pressure 126/78 07/01/2024 12:58 PM EST Pulse 84 07/01/2024 12:58 PM EST Temperature 36.6 C (97.9 F) 07/01/2024 12:[address] Respiratory Rate - - Oxygen Saturation - - Inhaled Oxygen Concentration - - Weight 104.8 kg (231 lb) 07/01/2024 12:58 PM EST Height - - Body Mass Index 37.28 06/26/2024 10:11 AM EST documented in this encounter Progress Notes * Norma Miller CRNP - 07/01/2024 1:30 PM EST Gastroenterology Outpatient Visit 07/01/2024 Referring physician:Emma Vu DO PCP: Emma Vu DO Past medical history: Chronic constipation ? Questionable history of UC; not appreciated most recent colonoscopy 06/2024. Pathology unremarkable Sigmoid diverticulosis History of rectal bleeding secondary to large external prolapsing thrombosed hemorrhoids, s/p hemorrhoidectomy, 07/12/2023 CC: Constipation follow-up HPI: Very pleasant 58-year-old female presents today to the gastroenterology office in routine follow-up. Last evaluated by the undersigned approximately one-month ago. 06/03/2024: Notable constipation symptoms with bloating. + taking lactulose. Developed significant left lower quadrant and lower abdominal pain with blood in the stools. - Lactulose discontinued and Linzess 145 mcg started - CTAP revealed colitis from the rectosigmoid colon to the anus. Patient has a questionable historyof ulcerative colitis. - Underwent colonoscopy on 06/26/2024-- normal mucosa of the entire colon. Diverticulosis of the sigmoid colon noted. Nonbleeding internal hemorrhoids. Pathology: Unremarkable colonic mucosa, no significant active inflammation, microscopic colitis, or dysplasia identified. - EGD unremarkable. Pathology: No evidence of celiac disease. Mild chemical/reactive gastropathy. Inactive gastritis. H pylori negative. 07/01/2024: Today the patient presents feeling generally well. Notes that the Linzess has helped her constipation significantly. About a week after taking the medication she was having 1-2 bowel movements a day that were firm but did not have any straining. However, after her colonoscopy she feels that she is little more constipated. Did restart her MiraLax in the morning. Has not had any further rectal bleeding. Continues to have some mild epigastric pain and indigestion however she has only been taking the omeprazole as needed. Has some mild abdominal bloating after meals. Appetite is improving. Followed up with track walker yesterday, will be having a pelvic ultrasound done to assess her ovaries due to assist noted on her left ovary. Patient is compliant with all medications, and offers no side effects. Medications tried for above complaint: Linzess 145 mcg daily started 06/03/2024 Lactulose-- BID, dc 05/2024 Benefiber daily 2 tbs Probiotics-- daily Miralax-- mildly effective. Squatty potty helps Previous GI workup: Colonoscopy: 06/26/2024-- normal mucosa of the entire colon. Diverticulosis of the sigmoid colon noted. Nonbleeding internal hemorrhoids. Pathology unremarkable EGD: 06/26/2024--unremarkable. Pathology: Mild chemical/reactive gastropathy. Inactive gastritis. Hpylori negative. CTAP 06/09/2024: Colitis from the rectosigmoid colon to the anus. Family Hx: CRC: Father Current Outpatient Medications Medication Sig Dispense Refill LORazepam 0.5 MG Oral Tablet (Ativan) Take 1 Tablet by mouth every 6 hours as needed. Vortioxetine HBr 20 MG Oral Tablet Take 1 Tablet by mouth in the morning. sulfaSALAzine 250 MG OR TABS Take 1 Tablet by mouth in the morning. Rosuvastatin Calcium 10 MG Oral Tablet (Crestor) Take 1 Tablet by mouth every night at bedtime. buPROPion HCl ER (SR) 100 MG Oral Tablet Extended Release 12 Hour (Wellbutrin SR) Take 1 Tablet by mouth in the morning and 1 Tablet before bedtime. Omeprazole 20 MG Oral Tablet Delayed Release Take 1 Tablet by mouth in the morning. 30 Tablet 3 linaCLOtide 145 MCG Oral Capsule (Linzess) Take 1 Capsule by mouth daily before breakfast. 30 Capsule 11 Polyethylene Glycol 3350 17 GM/SCOOP Oral Powder (MiraLax) Take 17 g by mouth in the morning. One cap full in juice, to effect 1 stool per day. .. Acetaminophen 500 MG Oral Tablet Take 1 Tablet by mouth every 4 hours as needed. Ondansetron HCl 4 MG Oral Tablet (Zofran) Take 1 Tablet by mouth every 8 hours as needed. No current facility-administered medications for this visit. Past Medical History: Diagnosis Date Anxiety Hyperlipidemia INFORMATION borderline diabetes Motion sickness Nausea and vomiting PONV (postoperative nausea and vomiting) Past Surgical History: Procedure Laterality Date ANORECTAL EXAM ,DIAG, REQUIRING ANESTHESIA N/A 07/12/2023 ANORECTAL EXAM UNDER ANESTHESIA performed by Francoise Kamara MD at [facility] COLONOSCOPY, DIAGNOSTIC (RECTUM) 06/26/2024 COLONOSCOPY FLEXIBLE PROXIMAL DIAGNOSTIC performed by Niko Ashraf MD at ENDOSCOPY [facility] EGD, FLEXIBLE, DIAGNOSTIC 06/26/2024 ESOPHAGOGASTRODUODENOSCOPY (EGD), FLEXIBLE, TRANSORAL, DIAGNOSTIC performed by Niko Ashraf MD at ENDOSCOPY [facility] HEMORRHOIDECTOMY, INTERNAL, 2 + COLUMNS N/A 07/12/2023 HEMORRHOIDECTOMY EXTERNAL AND INTERNAL COMPLEX performed by Francoise Kamara MD at [facility] INFORMATION 1988 tubal INFORMATION 1989 sinus surgery INFORMATION 12/2021 colonscopy INFORMATION 07/2022 colonoscopy INFORMATION 1975 appendix removed SIGMOIDOSCOPY, DIAGNOSTIC 06/11/2023 diverticulosis/hemorrhoids/biopsies normal/SIGMOIDOSCOPY FLEXIBLE DIAGNOSTIC performed by Niko Ashraf MD at ENDOSCOPY [facility] Social History Tobacco Use Smoking status: Never Smokeless tobacco: Never Vaping Use Vaping status: Never Used Substance Use Topics Alcohol use: Not Currently Drug use: Never Review of patient's allergies indicates: Allergen Reactions Aspartame Other Reaction(s): HEART RACING Review of Systems: See HPI for pertinent positives. All others negative, other than those noted in HPI. Physical Exam: BP 126/78 | Pulse 84 | Temp 36.6 C (97.9 F) | Wt 104.8 kg (231 lb) | BMI 37.28 kg/m | BSA 2.21 m GENERAL: Well developed and well nourished in no acute distress. SKIN: No rashes, ulcers, jaundice or spider angiomata. HEENT: Normocephalic, sclera clear, pharynx normal. NECK: Supple, no lymphadenopathy, no masses or thyroid enlargement. LUNGS: Clear to auscultation bilaterally, no respiratory distress or accessory muscles used. HEART: Regular rate & rhythm, no murmurs and no gallops. ABDOMEN: Normal bowel sounds, soft. Left lower quadrant pain. EXTREMITIES: No palmar erythema, no ankle edema, no skin discoloration, no clubbing, no cyanosis. NEURO: No lateralizing findings. Sensory/Motor grossly normal. Lab data/imaging study review: Reviewed. Impression/Plan: This is a(n) 58 year old female who is being evaluated in the office for ongoing care/risk management for the below diagnoses. 1. Irritable bowel syndrome with constipation Longstanding history of chronic constipation. Notable improvement with Linzess. Colonoscopy without evidence of colitis-- likely an over-read on CTAP. Continue Linzess 145 mcg daily, patient to follow-up in 1-2 weeks regarding her constipation symptoms. If bowels do not start moving easily again will increase dose. Okay to continue MiraLax 1 capful daily in the morning 2. External thrombosed hemorrhoids History of rectal bleeding secondary to large external prolapsing thrombosed hemorrhoids, status post hemorrhoidectomy, 07/12/2023 3. GERD Chronic inactive gastritis noted on EGD. Patient with ongoing indigestion/epigastric discomfort. Only taking PPI as needed. Increase omeprazole to 20 mg daily Discussed dietary and lifestyle modifications to improve GERD. Avoid NSAIDs and alcohol. If patient continues to have epigastric discomfort/abdominal bloating consider gastric emptying study to assess for gastroparesis. The patient agrees to the above plan and will call with additional questions or concerns. ER with all emergencies advised. Follow Up: Return in about 6 months (around 12/29/2024). I spent a total of 40-54 minutes (exact time 40 mins) on the date of service in preparation, delivery, and documentation of the care provided to Corrina Harmon excluding any time spent in the performance of separately billed services or time spent by another provider/QHP. MARCO ANTONIO Hilliard [facility] Gastroenterology, [facility] This chart was completed in part utilizing [employer] Speech Voice Recognition Software. Grammatical errors, random word insertions, prounoun errors, and incomplete sentences are an occasional consequence of this system due to software limitations, ambient noise, and hardware issues. Any formal questions or concerns about the content, text, or information contained within the body of this dictation should be directly addressed to the provider for clarification. documented in this encounter Nursing Notes * Julieta Mcgrath CMA - 07/01/2024 12:58 PM EST Chief Complaint Patient presents with Follow Up Pt here to f/u for constipation, abd bloating and LLQ pain. Saw Superintendent Tests yesterday and they ordered an US LLQ for her ovary. Pt still having abd bloating and constipation/straining. Mild epigastric pain today. documented in this encounter Plan of Treatment Upcoming Encounters Date Type Department Care Team (Late st Contact Info) Description 07/13/2024 1:45 [place] [address] 07/13/2024 3:15 PM EST Appointment Laya Victor [address] [place] [address] 07/17/2024 1:45 PM EST Imaging Radiology [facility] [address] [facility] [place] [address] 07/30/2024 4:00 PM EST Office Visit Gynecology/Obstetrics, [place] [address] [place] [address] [place] [address] Geovanna Hancock PA-C [address] [place] [address] 08/03/2024 2:00 PM EST Office Visit Otolaryngology/Head & Neck/Facial Plastic Surgery [address] [place] [address] Teddy Martel MD [address] [place] [facility] [place] [address] 09/09/2024 9:25 AM EST Office Visit ANTHROPOLOGY L[facility]ER [facility] [address] [facility] [place] [address] Galdino Hernandez MD [address] [place] [address] Nurse Laya Urogyn [address] [place] [place] [address] Health Maintenance Due Date Last Done Comments [...] as of this encounter Visit Diagnoses Diagnosis Irritable bowel syndrome with constipation- Primary Irritable bowel syndrome External thrombosed hemorrhoids Gastroesophageal reflux disease without esophagitis Esophageal reflux documented in this encounter Care Teams Wheel Loader Operator Relationship Specialty Start Date End Date Emma Vu DO [address] [place] [address] PCP - General Family Medicine 01/07/23 documented as of this encounter"
--- OUTSIDE RECORDS SUMMARY | 2024-11-06 06:45 | External Medical Summary | Summary of Care ---
Author Name Unknown Organization [facility] Address [address] [place] [address] Phone [phone] Care Team Providers Care Diabetes Solutions Specialist Name Role Phone Emma Vu DO Primary Car e Provider Reason for Visit * Reason Onset Date Comments Appointment 07/13/2024 Encounter Details Date Type Department Care Team (Late st Contact Info) Description 07/13/2024 Telephone [address] [place], [place] [id number] Corrina Joiner, RT (R) Appointment Allergies Active Allergy Reactions Criticality Noted Date Comments Aspartame High 09/07/2022 Other Reaction(s): HEART RACING documented as of this encounter (statuses as of 07/13/2024) Medications Acetaminophen 500 MG Oral Tablet Take [...] as of this encounter (statuses as of 07/13/2024) Active Problems Problem Noted Date Diagnosed Date Nausea and vomiting 01/25/2023 Rectal bleeding 01/25/2023 documented as of this encounter (statuses as of 07/13/2024) Immunizations Name Administration Dates Next Due Seasonal [...] encounter Miscellaneous Notes * Telephone Encounter - Corrina Joiner, RT (R) - 07/13/2024 1:24 PM EST Name: Corrina Harmon Do you have any of the following: Pacemaker, stents, heart valves, aneurysm clips? No Have you ever worked with metal or have you ever gotten metal in your eyes? No Have you had a colonoscopy in the last 30 days? Yes - no clips On dialysis? No Do you have any dermals or body piercing's? No or ? no Do you wear an insulin pump or diabetic monitor? no Corrina Joiner RT (R) documented in this encounter Plan of Treatment Upcoming Encounters Date Type Department Care Team (Late st Contact Info) Description 07/13/2024 1:13 PM EST Hospital Encounter RadiologyLaya [address] [place] [id number] Arrived 07/13/2024 3:15 PM EST Appointment Laya Victor [address] [place] [address] 07/17/2024 1:45 PM EST Imaging Radiology [address] [place] [address] 07/30/2024 4:00 PM EST Office Visit Gynecology/Obstetrics [place] [address] [place] [address] Geovanna Hancock PA-C [address] [place] [address] 08/03/2024 2:00 PM EST Office Visit Otolaryngology/Head & Neck/Facial Plastic Surgery [address] [facility] [place] [address] Teddy Martel MD [address] [facility] [place] [address] 09/09/2024 9:25 AM EST Office Visit HAND STONER Urology [place] [address] [place] [address] Galdino Hernandez MD [address] [place] [address] Nurse Laya Urogydot [address] [place] [address] Health Maintenance Due Date Last Done Comments [...] filedocumented as of this encounter Care Teams Diabetes Solutions Specialist Relationship Specialty Start Date End Date Emma Vu DO [address] [place] [address] PCP - General Family Medicine 01/07/23 documented as of this encounter
--- OUTSIDE RECORDS SUMMARY | 2024-11-06 06:45 | External Medical Summary | Summary of Care ---
Author Name Unknown Organization [facility] Address [address] [place] [address] Phone [phone] Care Team Providers Care Mechanic Sound Technician Name Role Phone Emma Vu Sandie Stovall DO Primary Car e Provider Encounter Details Date Type Department Care Team (Latest Contact Info) Description 07/13/2024 3:15 PM EST - 07/13/2024 11:59 PM EST Hospital Encounter Radiology, [place] [address] [place] [address] Arrived Discharge Disposition: Home - Self Care Allergies Active Allergy Reactions Criticality Noted Date Comments Aspartame High 09/07/2022 Other Reaction(s): HEART RACING documented as of this encounter (statuses as of 07/14/2024) Medications Acetaminophen 500 MG Oral Tablet Take [...] as of this encounter (statuses as of 07/14/2024) Active Problems Problem Noted Date Diagnosed Date Nausea and vomiting 01/25/2023 Rectal bleeding 01/25/2023 documented as of this encounter (statuses as of 07/14/2024) Immunizations Name Administration Dates Next Due Seasonal [...] AM EDT documented as of this encounter Plan of Treatment Upcoming Encounters Date Type Department Care Team (Late st Contact Info) Description 07/17/2024 1:45 PM EST Imaging Radiology [address] [place] [address] 07/30/2024 4:00 PM EST Office Visit Gynecology/Obstetrics, [place] [place] [address] Geovanna Hancock PA-C [address] [place] [address] 08/03/2024 2:00 PM EST Office Visit Otolaryngology/Head & Neck/Facial Plastic Surgery [address] [place] [address] Teddy Martel MD [address] [place] [address] 09/09/2024 9:25 AM EST Office Visit QUARRY SUPERVISOR [facility] [place] Laya Gonzalez [address] [facility] [place], [place] [id number] Galdino Hernandez MD [address] [place] [address] Nurse Laya Urogyn [address] [facility] [place] [id number] 01/13/2025 1:15 PM EDT [facility] [address] [place] [address] Pending Results Name Type Priority Associated Diagnoses Date /Time MAMMOGRAM SCREENING CONCHA BILATERAL Medical Imaging Routine Encounter for screening mammogram for malignant neoplasm of breast 07/13/2024 3:54 PM EST Health Maintenance Due Date Last Done Comments [...] 06/28/2028 HPV/Co-Test 06/28/2028 06/28/2023 Colonoscopy 06/26/2034 06/26/2024, 110 03/2024, 07/19/2022 Colorectal Cancer Screening 06/26/2034 Influenza Vaccine (FLU shot) Completed , 07/23/2023, 07/23/2023 HPV (Gardasil) Vaccine Aged Out No lo nger eligible based on patient's age to complete this topic MENINGOCOCCAL (MENACTRA/MENVEO) Aged Out No longer eligible based on patient's age to complete this topic documented as of this encounter Medical Devices Not on filedocumented as of this encounter Care Teams Mechanic Sound Technician Relationship Specialty Start Date End Date Emma Vu DO [address] [facility] [place] [address] PCP - General Family Medicine 01/07/23 documented as of this encounter
--- OUTSIDE RECORDS SUMMARY | 2024-11-06 06:45 | External Medical Summary | Summary of Care ---
Author Name Unknown Organization [facility] Address [address] [place] [address] Phone [phone] Care Team Providers Care Manufacturing Planner Name Role Phone Emma Vu Sandie Wilman DO Primary Car e Provider Reason for Referral * Evaluate & Treat - Unlimited Visits (Within 10 days (routine)) - Authorized Specialty Diagnoses / Procedures Referred By Kate williamson Referred To Contact HOUSEKEEPING AND LAUNDRY TEAM LEADER - Urogynecology / Gynecology Urology Diagnoses Stress incontinence Drea Gage PA-C [address] [place] [address] Phone: tel: fax: Referral ID Status Reason Start Date Expiration Date Visits Requested Visits Authorized [id number] Authorized Specialty Services Required 4 [phone] Question Answer Referral Priority Within 10 days (routine) Where should this appointment be scheduled? [facility] What condition is the patient being referred for? Urinary Incontinence/Overactive Bladder Reason for Visit * Reason Comments Spike Machine Feeder Return wellness Encounter Details Date Type Department Care Team (Latest Contact Info) Description 06/30/2024 9:00 AM EST Office Visit Gynecology/Obstetric Laya stevenson [address] [place] [address] Drea Gage PA-C [address] [place] [address] Women's annual routine gynecological examination*; Encounter for [...] by Francoise Kamara MD at OR [facility] COLONOSCOPY, DIAGNOSTIC (RECTUM) 06/26/2024 COLONOSCOPY FLEXIBLE PROXIMAL DIAGNOSTIC performed by Niko Ashraf MD at ENDOSCOPY [facility] EGD, FLEXIBLE, DIAGNOSTIC 06/26/2024 ESOPHAGOGASTRODUODENOSCOPY (EGD), FLEXIBLE, TRANSORAL, DIAGNOSTIC performed by Niko Ashraf MD at ENDOSCOPY [facility] HEMORRHOIDECTOMY, INTERNAL, 2 + COLUMNS N/A 07/12/2023 HEMORRHOIDECTOMY EXTERNAL AND INTERNAL COMPLEX performed by Francoise Kamara MD at [facility] INFORMATION 1988 tubal INFORMATION 1989 sinus surgery INFORMATION 12/2021 colonscopy INFORMATION 07/2022 colonoscopy INFORMATION 1975 appendix removed SIGMOIDOSCOPY, DIAGNOSTIC 06/11/2023 diverticulosis/hemorrhoids/biopsies normal/SIGMOIDOSCOPY FLEXIBLE DIAGNOSTIC performed by Niko Ashraf MD at ENDOSCOPY [facility] Family History Family History Problem Relation [...] Stability Do you currently live in a usp or have no steady place to sleep [...] masses. Rectal: perianal area normal, anus normal Perianesthesia Nurse Documentation Patient offered cranberry bog supervisor and accepted. Name of cranberry bog supervisor: Maribel Parish LPN. Assessment/Plan Women's annual routine [...] at follow-up appointment. - Also discussed non PROVIDER EDUCATION SPECIALIST causes of pelvic pain. Follow-Up: RTO in 4 weeks to discuss U/S results and HRT, and RTO sooner PRN with concern. Call theoffice with any problems, questions, concerns. Drea Gage PA-C 06/30/2024 documented in this encounter Nursing Notes * Dolly Qureshi CMA - 06/30/2024 8:54 AM EST Chief Complaint Patient presents with Spike Machine Feeder Return wellness Patient identified Corrina Guillermo Beaulieukayla by name and date of . Patient here for yearly exam. Complaints: Pt reports having hot flashes and also has had some cold sweats. Last pap: 06/28/2023 neg/neg Last Mammogram: 06/28/2023 Last Dexa: n/a Last Colonoscopy: 06/26/2024 Type of Contraception: postmenopausal Pt here for chlamydia screen. no My Croak.iter is a way you can talk to [...] Description 07/17/2024 1:45 PM EST Imaging Radiology [address] [place] [address] 07/30/2024 4:00 PM EST Office Visit Gynecology/Obstetrics, [address] [place] [address] Drea Gage PA-C [address] [place] [address] 08/03/2024 2:00 PM EST Office Visit Otolaryngology/Head & Neck/Facial Plastic Surgery [address] [place] [address] Teddy Martel MD [address] [place] [facility] [place] [address] 09/09/2024 9:25 AM EST Office Visit PROVIDER EDUCATION SPECIALIST [facility]rology [place] [address] [place] [address] Galdino Hernandez MD [address] [place] [address] Nurse Laya Urogyn [address] [place] [address] Pending Results Name Type Priority Associated Diagnoses Date /Time MAMMOGRAM SCREENING CONCHA BILATERAL Medical Imaging Routine Encounter for screening mammogram for malignant neoplasm of breast 07/13/2024 3:54 PM EST Scheduled Orders Name Type Priority Associated Diagnoses Orde r Schedule US PELVIS TRANS-VAGINAL NON-OB Medical Imaging Routine Left ovarian cyst Expected: 01/10/2025, Expires: 08/12/2025 Scheduled Referrals Name Type Priority Associated Diagnoses [...] Not on filedocumented as of this encounter Results * US PELVIS TRANS-VAGINAL NON-OB (07/13/2024 2:39 [...] cyst documented in this encounter Care Teams Manufacturing Planner Relationship Specialty Start Date End Date Emma Vu DO [address] [place] [address] PCP - General Family Medicine 01/07/23 documented as of this encounter"
--- OUTSIDE RECORDS SUMMARY | 2024-11-06 06:45 | External Medical Summary | Summary of Care ---
Author Name Unknown Organization [facility] Address [address] [place] [address] Phone [phone] Care Team Providers Care Pharmacy Intake Coordinator Name Role Phone Emma Vu Sandie Stovall DO Primary Car e Provider Encounter Details Date Type Department Care Team (Latest Contact Info) Description 07/13/2024 1:13 PM EST - 07/13/2024 3:14 PM EST Hospital Encounter Radiology, [place] [address] [place] [address] Arrived Discharge Disposition: Home - Self Care [...] as of this encounter Miscellaneous Notes * Result Encounter Note - Geovanna Hancock PA-C - 07/13/2024 1:45 PM EST Please inform patient I have reviewed the [...] Description 07/17/2024 1:45 PM EST Imaging Radiology [address] [place] [address] 07/30/2024 4:00 PM EST Office Visit [facility] [address] [place] [address] Geovanna Hancock PA-C [address] [place] [address] 08/03/2024 2:00 PM EST Office Visit Otolaryngology/Head & Neck/Facial Plastic Surgery [address] [place] [address] Teddy Martel MD [address] [facility] [place] [address] 09/09/2024 9:25 AM EST Office Visit COMPUTER LABORATORY TECHNICIAN Urology [place] Laya Gonzalez [address] [place] [address] Galdino Hernandez MD [address] [place] [address] Nurse Laya Urogyn [address] [place] [address] 01/13/2025 1:15 PM EDT [facility] [address] [facility] [place] [address] Health Maintenance Due Date Last Done Comments [...] Procedure Name Priority Date/Time Associated Diagnosis Comments US PELVIS TRANS-VAGINAL NON-OB Routine 07/13/2024 2:39 PM EST Left ovarian cyst documented in this encounter Results * US PELVIS TRANS-VAGINAL [...] agree with the resident/fellow physician's interpretation. us Geovanna Hancock PA-C RAD ULTRASOUND F inal Result documented in this encounter Visit Diagnoses Diagnosis Left ovarian cyst Other and unspecified ovarian cyst documented in this encounter Care Teams Pharmacy Intake Coordinator Relationship Specialty Start Date End Date Emma Vu DO [facility] [place] [address] PCP - General Family Medicine 01/07/23 documented as of this encounter
--- OUTSIDE RECORDS SUMMARY | 2024-11-06 06:45 | External Medical Summary | Summary of Care ---
Author Name Unknown Organization [facility] Address [address] [place] [address] Phone [phone] Care Team Providers Care Manager Critical Care Name Role Phone Emma Vu DO Primary Car e Provider Reason for Visit * Auth/Cert Specialty Diagnoses / Procedures Referred By Kate williamson Referred To Contact Diagnoses External thrombosed hemorrhoids Abdominal bloating Gastroesophageal reflux disease with esophagitis without hemorrhage External thrombosed hemorrhoids [K64.5] Abdominal bloating [R14.0] Gastroesophageal reflux disease with esophagitis without hemorrhage [K21.00] Procedures COLONOSCOPY, DIAGNOSTIC (RECTUM) EGD, FLEXIBLE, DIAGNOSTIC COLONOSCOPY FLEXIBLE PROXIMAL DIAGNOSTIC ESOPHAGOGASTRODUODENOSCOPY (EGD), FLEXIBLE, TRANSORAL, DIAGNOSTIC Niko Ashraf MD [address] [employer] [place] [address] Phone: tel: fax: [facility], Endoscopy Room [facility] [address] [place] [address] Phone: tel: Referral ID Status Reason Start Date Expiration Date Visits Re quested Visits Authorized [id number] Encounter Details Date Type Department Care Team (Latest Contact Info) Description 06/26/2024 9:42 AM EST - 06/26/2024 11:42 AM EST Hospital Encounter [facility], End[facility] [address] [place] [address] Niko Ashraf MD [address] [place] [address] Various: UGI,GICOLON Discharge Disposition: Home - Self Care Allergies Active Allergy Reactions Criticality Noted Date Comments Aspartame High 09/07/2022 Other Reaction(s): HEART RACING documented as of this encounter (statuses as of 06/26/2024) Medications Acetaminophen 500 MG Oral Tablet Take [...] by mouth in the morning. 3 Active Semaglutide(0.2 5 or 0.5MG/DOS) 2 MG/1.5ML Solution [...] on 06/22/2024 linaCLOtide 145 MCG Oral Capsule (Linzess)Indica tions:Chronic constipation,Ex ternal thrombosed hemorrhoids,Abd ominal bloating,Gastro esophageal reflux disease with esophagitis without hemorrhage Take 1 Capsule by mouth daily before breakfast. 30 Capsule 11 Active Gabapentin 100 MG Oral Capsule (Neurontin) Take 1 Capsule by mouth at bedtime. 024 Discontin ued(Medic ation List Clean Up) documented as of this encounter (statuses as of 06/26/2024) Active Problems Problem Noted Date Diagnosed Date Nausea and vomiting 01/25/2023 Rectal bleeding 01/25/2023 documented as of this encounter (statuses as of 06/26/2024) Immunizations Name Administration Dates Next Due Seasonal [...] Sign Reading Time Taken Comments Blood Pressure 124/76 06/26/2024 11:03 AM EST Pulse 68 06/26/2024 11:20 AM EST Temperature 36.2 C (97.2 F) 06/26/2024 11:[address] Respiratory Rate 16 06/26/2024 11:20 AM EST Oxygen Saturation 98% 06/26/2024 11:20 AM EST Inhaled Oxygen Concentration - - Weight 104.3 kg (230 lb) 06/26/2024 10:11 AM EST Height 167.6 cm (5' 6") 06/26/2024 10:11 AM EST Body Mass Index 37.12 06/26/2024 10:11 AM EST documented in this encounter H&P Notes * Niko Ashraf MD - 06/26/2024 9:59 AM EST Endoscopy Pre-Procedure Assessment Name: Corrina Harmon Date: 06/26/2024 Time: 9:59 AM Procedure(s): Colonoscopy; with Indication(s) of evaluation of GI blood loss or iron- deficiency anemia Upper GI Endoscopy; with Indication(s) of upper abdominal symptoms that persist despite an appropriate trial of therapy Endoscopy Pre-Procedure Assessment: Prior to the procedure, the patient was identified. The patient's history, medications and allergies were reviewed as per the Anesthesia Assessment. The patient is competent. The risks and benefits of the proposed procedure and the planned sedation were discussed with the patient. All questions were answered and informed consent for the procedure was obtained. There were no vitals taken for this visit. Review of patient's allergies indicates: Allergen Reactions Aspartame Other Reaction(s): HEART RACING Prior to Admission medications Medication Sig Last Dose Discont. buPROPion HCl ER (SR) 100 MG Oral Tablet Extended Release 12 Hour (Wellbutrin SR) Take 1 Tablet by mouth in the morning and 1 Tablet before bedtime. 06/25/2024 Morning linaCLOtide 145 MCG Oral Capsule (Linzess) Take 1 Capsule by mouth daily before breakfast. 06/25/2024 Morning Rosuvastatin Calcium 10 MG Oral Tablet (Crestor) Take 1 Tablet by mouth every night at bedtime. Past Week traZODone HCl 50 MG Oral Tablet (Desyrel) Take 1 Tablet by mouth at bedtime. Past Week Celecoxib 200 MG Oral Capsule (CeleBREX) Take 1 Capsule by mouth in the morning. One tablet or two tablets depends on her pain level-. 06/25/2024 Ondansetron HCl 4 MG Oral Tablet (Zofran) Take 1 Tablet by mouth every 8 hours as needed. Past Week sulfaSALAzine 250 MG OR TABS Take 1 Tablet by mouth in the morning. 06/25/2024 Morning Vortioxetine HBr 20 MG Oral Tablet Take 1 Tablet by mouth in the morning. 06/25/2024 Morning Omeprazole 20 MG Oral Tablet Delayed Release Take 1 Tablet by mouth in the morning. Patient not taking: Reported on 06/22/2024 Not Taking Multivitamin Adult Oral Tablet Chewable Take by mouth. Patient not taking: Reported on 06/26/2024 Not Taking Semaglutide(0.25 or 0.5MG/DOS) 2 MG/1.5ML Solution Pen-injector ([employer]) Inject 0.5 mg under the skin once a week. Patient not taking: Reported on 06/03/2024 Not Taking Acetaminophen 500 MG Oral Tablet Take 1 Tablet by mouth every 4 hours as needed. Over 30 Days LORazepam 0.5 MG Oral Tablet (Ativan) Take 1 Tablet by mouth every 6 hours as needed. Over 30 Days Physical Exam: Mental Status Examination: alert and oriented. Airway Examination: normal oropharyngeal airway and neck mobility. Respiratory Examination: clear to auscultation. CV Examination: Regular rate and rythm, no murmurs. ASA Grade: II - A patient with mild systemic disease. After reviewing the risks and benefits, the patient was deemed in satisfactory condition to undergothe procedure. The anesthesia plan was to use sedation. Patient was explained in detail regarding risks, benefits, limitations and alternatives of the above endoscopic procedure. Risks of intravenous sedation used for procedure were also explained. Risks include, but not limited to perforation, bleeding, infection, respiratory distress, cardiac arrest and . Risk of acute pancreatitis and necrosis if ERCP is done. Patient is also aware about the possibility of missed lesion. Patient's questions were answered. The patient verbalized understandingthe information and agreed to undergo the procedure. Discussed with the patient that he/she is at an explicit higher risk for complications in comparison to other patients Niko Ashraf MD 06/26/2024 documented in this encounter Procedure Notes * Emma Vu DO - 06/26/2024 10:36 AM ESTAssociated Order(s): UPPER GI ENDOSCOPY [facility] Patient Name: Corrina Harmon Procedure Date: 06/26/2024 10:36 AM Date of : 1965 Admit Type: Outpatient Note Status: Finalized Date of : 1965 Admit Type: Outpatient Age: 58 Room: [facility] Gender: Female Note Status: Finalized Procedure: Upper GI endoscopy Indications: Abdominal pain, Dyspepsia Providers: Niko Ashraf MD (Doctor), Matteo Justin RN Referring MD: Emma Vu DO (Referring ), Norma Miller (Referring MD) Medicines: Propofol per Anesthesia Complications: No immediate complications. Procedure: Pre-Anesthesia Assessment: - Prior to the procedure, a History and Physical was performed, and patient medications, allergies and sensitivities were reviewed. The patient's tolerance of previous anesthesia was reviewed. - The risks and benefits of the procedure and the sedation options and risks were discussed with the patient. All questions were answered and informed consent was obtained. - Patient identification and proposed procedure were verified prior to the procedure by the physician and the nurse. The procedure was verified in the procedure room. - Pre-procedure physical examination revealed no contraindications to sedation. After obtaining informed consent, the endoscope was passed under direct vision. All instruments were visually inspected immediately before and after removal from the patient to ensure they are fully intact. Throughout the procedure, the patient's blood pressure, pulse, and oxygen saturations were monitored continuously. The [id number] Endoscope([id number]) was introduced through the mouth, and advanced to the second part of duodenum. The upper GI endoscopy was accomplished without difficulty. The patient tolerated the procedure well. Findings & Specimens: The examined esophagus was normal. The entire examined stomach was normal. Biopsies were taken with a cold forceps for Helicobacter pylori testing. Verification of patient identification for the specimen was done by the physician and nurse using the patient's name and date. The pathology specimen was placed into Bottle B. The duodenal bulb and second portion of the duodenum were normal. Biopsies for histology were taken with a cold forceps for evaluation of celiac disease. The pathology specimen was placed into BottleA. Impression: - Normal esophagus. - Normal stomach. Biopsied. - Normal duodenal bulb and second portion of the duodenum. Biopsied. Recommendation: - Await pathology results. - Perform a colonoscopy today. Niko Ashraf MD 06/26/2024 10:51:46 AM This report has been signed electronically. * Emma Vu DO - 06/26/2024 10:35 AM ESTAssociated Order(s): COLONOSCOPY [facility] Patient Name: Corrina Harmon Procedure Date: 06/26/2024 10:35 AM Date of : 1965 Admit Type: Outpatient Note Status: Finalized Date of : 1965 Admit Type: Outpatient Age: 58 Room: [facility] Gender: Female Note Status: Finalized Procedure: Colonoscopy Indications: Chronic diarrhea, Rectal bleeding Providers: Niko Ashraf MD (Doctor), Matteo Justin RN Referring MD: Emma Vu DO (Referring MD), Norma Miller (Referring MD) Medicines: Propofol per Anesthesia Complications: No immediate complications. Procedure: Pre-Anesthesia Assessment: - Prior to the procedure, a History and Physical was performed, and patient medications, allergies and sensitivities were reviewed. The patient's tolerance of previous anesthesia was reviewed. - The risks and benefits of the procedure and the sedation options and risks were discussed with the patient. All questions were answered and informed consent was obtained. - Patient identification and proposed procedure were verified prior to the procedure by the physician and the nurse. The procedure was verified in the procedure room. - Pre-procedure physical examination revealed no contraindications to sedation. After I obtained informed consent, the scope was passed under direct vision. All instruments were visually inspected immediately before and after removal from the patient to ensure they are fully intact. Throughout the procedure, the patient's blood pressure, pulse, and oxygen saturations were monitored continuously. The [id number] Colonoscope ([id number]) was introduced through the anus and advanced to the terminal ileum. The colonoscopy was performed without difficulty. The patient tolerated the procedure well. The quality of the bowel preparation was good. Findings & Specimens: The perianal and digital rectal examinations were normal. The terminal ileum appeared normal. Normal mucosa was found in the entire colon. Biopsies for histology were taken with a cold forceps for evaluation of microscopic colitis. Verification of patient identification for the specimen was doneby the physician and nurse using the patient's name and date. The pathology specimen was placed into Bottle C. Multiple small and large-mouthed diverticula were found in the sigmoid colon. Non-bleeding internal hemorrhoids were found during retroflexion. The hemorrhoids were small. Impression: - The examined portion of the ileum was normal. - Normal mucosa in the entire examined colon. Biopsied. - Diverticulosis in the sigmoid colon. - Non-bleeding internal hemorrhoids. Recommendation: - Discharge patient to home. - Await pathology results. - Return to referring physician. Niko Ashraf MD 06/26/2024 11:03:28 AM This report has been signed electronically. documented in this encounter Nursing Notes * Nya Villa RN - 06/26/2024 11:36 AM EST Patient is alert, pain free, passing flatus and tolerating po fluids prior to discharge. Patient has been visited by Dr. Ashraf. Patient has received and demonstrates understanding of discharge instructions. Patient is transported via w/c to private auto accompanied by endo staff. * Nya Villa RN - 06/26/2024 11:17 AM EST Pt sitting up tolerating po fluids. * Nya Villa RN - 06/26/2024 11:[address] Ashraf in with pt discussing results of procedure. * Matteo Justin RN - 06/26/2024 11:04 AM EST See anesthesia record for medication administered during procedure. Matteo Justin RN Specimen(s) and location(s) verified with physician post procedure 11:04 AM Matteo Justin RN Pt scot EGD w/ bx well. Abd soft post proc. To recovery lying on L side w/ HOB elevated. Pre cleaning of scope at the bedside started by technical producer. Pt scot colonoscopy w/ biopsies well. No Abd pressure applied to assist w/ advancement of the scope.Abd soft post proc. To recovery lying on L side. Pre cleaning of scope at the bedside started by technical producer. * Nya Villa RN - 06/26/2024 11:03 AM EST Received pt, resting with eyes closed, VSS, CM shows NSR. Report given by Ree VALERIO. * Estelle Khan RN - 06/26/2024 10:13 AM EST Patient prepped and ready for procedure. Call ontiveros in reach. * Estelle Khan RN - 06/26/2024 9:50 AM EST The following pt discharge instructions reviewed with pt prior to prodedure: No driving today. No alcohol today. No signing of legal documents. Rest as much as possible today and can return to normal activities tomorrow. No operating any heavy equipment today. Diet as tolerated. Pt verbalized understanding. documented in this encounter Plan of Treatment Upcoming Encounters Date Type Department Care Team (Late st Contact Info) Description 07/01/2024 1:30 PM EST Office Visit Gastroenterology, [facility] [address] [place] [address] Norma Miller CRNP [address] [place] [address] 07/17/2024 1:45 PM EST Imaging Radiology [facility] [address] [place] [address] 08/03/2024 2:00 PM EST Office Visit Otolaryngology/Head & Neck/Facial Plastic Surgery [address] [place] [address] Teddy Martel MD [address] [place] [address] Pending Results Name Type Priority Associated Diagnoses Date /Time SURGICAL PATHOLOGY Pathology Routine External thrombosed hemorrhoids Abdominal bloating Gastroesophageal reflux disease with esophagitis without hemorrhage 06/26/2024 11:03 AM EST Scheduled Orders Name Type Priority Associated Diagnoses Orde r Schedule SURGICAL PATHOLOGY Pathology Routine External thrombosed hemorrhoids Abdominal bloating Gastroesophageal reflux disease with esophagitis without hemorrhage Release Upon Ordering for 1 Occurrences starting 06/26/2024, 1 completed Scheduled Procedures Name Priority Associated Diagnoses Date/Ti me COLONOSCOPY FLEXIBLE PROXIMA L DIAGNOSTIC External thrombosed hemorrhoids Abdominal bloating Gastroesophageal reflux disease with esophagitis without hemorrhage 06/26/2024 10:43 AM EST ESOPHAGOGASTRODUODENOSCOPY ( EGD), FLEXIBLE, TRANSORAL, DIAGNOSTIC External thrombosed hemorrhoids Abdominal bloating Gastroesophageal reflux disease with esophagitis without hemorrhage 06/26/2024 10:43 AM EST Health Maintenance Due Date Last Done [...] 06/28/2028 HPV/Co-Test 06/28/2028 06/28/2023 Colonoscopy 06/26/2034 06/26/2024, 07/19/2022 Colorectal Cancer Screening 06/26/2034 Influenza Vaccine [...] Procedure Name Priority Date/Time Associated Diagnosis Comments UPPER GI ENDOSCOPY 06/26/2024 10 :36 AM EST COLONOSCOPY 06/26/2024 10:35 AM EST documented in this encounter Results * UPPER GI ENDOSCOPY (06/26/2024 10:36 AM EST) 06/26/2024 10:3 6 AM EST Narrative Procedure Note Emma Vu DO - 06/26/2024 10:36 AM EST [facility] Patient Name: Corrina Harmon Procedure Date: 06/26/2024 10:36 AM Date of : 1965 Admit Type: Outpatient Note Status:Finalized Date of : 1965 Admit Type: Outpatient Age: 58 Room: [facility] Gender: Female Note Status: Finalized Procedure: Upper GI endoscopy Indications: Abdominal pain, Dyspepsia Providers: Niko Ashraf MD (Doctor), Matteo Justin RN Referring MD: Emma Vu DO (Referring ), Norma Miller(Referring ) Medicines: Propofol per Anesthesia Complications: No immediate complications. Procedure: Pre-Anesthesia Assessment: - Prior to the procedure, a History and Physicalwas performed, and patient medications, allergies and sensitivities werereviewed. The patient's tolerance of previous anesthesia was reviewed. - The risks and benefits of the procedure and thesedation options and risks were discussed with the patient. All questions wereanswered and informed consent was obtained. - Patient identification and proposed procedurewere verified prior to the procedure by the physician and the nurse. The procedure wasverified in the procedure room. - Pre-procedure physical examination revealed nocontraindications to sedation. After obtaining informed consent, the endoscope waspassed under direct vision. All instruments were visually inspected immediatelybefore and after removal from the patient to ensure they are fully intact. Throughout the procedure, the patient's bloodpressure, pulse, and oxygen saturations were monitored continuously. The [id number]) was introduced through the mouth, and advanced to the second part ofduodenum. The upper GI endoscopy was accomplished without difficulty. The patienttolerated the procedure well. Findings & Specimens: The examined esophagus was normal. The entire examined stomach was normal. Biopsies were taken with acold forceps for Helicobacter pylori testing. Verification of patient identification for the specimen wasdone by the physician and nurse using the patient's name and date. The pathology specimen wasplaced into Bottle B. The duodenal bulb and second portion of the duodenum were normal.Biopsies for histology were taken with a cold forceps for evaluation of celiac disease. The pathologyspecimen was placed into Bottle A. Impression: - Normal esophagus. - Normal stomach. Biopsied. - Normal duodenal bulb and second portion of theduodenum. Biopsied. Recommendation: - Await pathology results. - Perform a colonoscopy today. Niko Ashraf MD 06/26/2024 10:51:46 AM This report has been signed electronically. us Emma Vu DO [facility] Final Result * COLONOSCOPY (06/26/2024 10:35 AM EST) 06/26/2024 10:3 5 AM EST Narrative Procedure Note Emma Vu, DO - 06/26/2024 10:35 AM EST [facility] Patient Name: Corrina Harmon Procedure Date: 06/26/2024 10:35 AM Date of : 1965 Admit Type: Outpatient Note Status:Finalized Date of : 1965 Admit Type: Outpatient Age: 58 Room: [facility] Gender: Female Note Status: Finalized Procedure: Colonoscopy Indications: Chronic diarrhea, Rectal bleeding Providers: Niko Ashraf MD (Doctor), Matteo Justin RN Referring MD: Emma Vu DO (ReferringMD), Norma Miller (Referring MD) Medicines: Propofol per Anesthesia Complications: No immediate complications. Procedure: Pre-Anesthesia Assessment: - Prior to the procedure, a History and Physicalwas performed, and patient medications, allergies and sensitivities werereviewed. The patient's tolerance of previous anesthesia was reviewed. - The risks and benefits of the procedure and thesedation options and risks were discussed with the patient. All questions wereanswered and informed consent was obtained. - Patient identification and proposed procedurewere verified prior to the procedure by the physician and the nurse. The procedure wasverified in the procedure room. - Pre-procedure physical examination revealed nocontraindications to sedation. After I obtained informed consent, the scope waspassed under direct vision. All instruments were visually inspected immediatelybefore and after removal from the patient to ensure they are fully intact. Throughout the procedure, the patient's bloodpressure, pulse, and oxygen saturations were monitored continuously. The [id number] ([id number]) was introduced through the anus and advanced to the terminalileum. The colonoscopy was performed without difficulty. The patient tolerated theprocedure well. The quality of the bowel preparation was good. Findings & Specimens: The perianal and digital rectal examinations were normal. The terminal ileum appeared normal. Normal mucosa was found in the entire colon. Biopsies for histologywere taken with a cold forceps for evaluation of microscopic colitis. Verification of patientidentification for the specimen was done by the physician and nurse using the patient's name and date. Thepathology specimen was placed into Bottle C. Multiple small and large-mouthed diverticula were found in thesigmoid colon. Non-bleeding internal hemorrhoids were found during retroflexion. Thehemorrhoids were small. Impression: - The examined portion of the ileum was normal. - Normal mucosa in the entire examined colon.Biopsied. - Diverticulosis in the sigmoid colon. - Non-bleeding internal hemorrhoids. Recommendation: - Discharge patient to home. - Await pathology results. - Return to referring physician. Niko Ashraf MD 06/26/2024 11:03:28 AM This report has been signed electronically. us Emma Stovall Shippert DO GASTRO L[facility] Final Result documented in this encounter Visit Diagnoses Diagnosis External thrombosed hemorrhoids Abdominal bloating Flatulence, eructation, and gas pain Gastroesophageal reflux disease with esophagitis without hemorrhage documented in this encounter Administered Medications Inactive Administered Medications - up to 3 most recent administrations Medication Order MAR Action Action Date Dose Rate Site Acetaminophen (Tylenol) tab 650 mg 650 mg, Oral, PRN Pain, Mild, Starting on Sat06/26/24 at 1113, Until Sat06/26/24 at 1542, For 1 dose, Maximum of 4 grams (4000 mg) per day., Post-op Isolyte-S pH 7.4 infusion Intravenous, at 100 mL/hr, Plasma-LYTE 148, isolyte-S, and isolyte-S pH 7.4 are considered equivalent - including for MAR barcode scanning., CONTINUOUS, Starting on Sat06/26/24 at 1030, Until Sat06/26/24 at 1542, Pre-Op Restarted 06/26/2024 11:03 AM EST Continue from Pre-Op 06/26/2024 10:40 AM EST 10 0 mL/hr New Bag 06/26/2024 10:13 AM EST 100 mL/hr documented in this encounter Active and Recently Administered Medications Times are shown in EST. Continuous Medication Order 06/24/2024 06/25/2024 06/26/2024 Isolyte-S pH 7.4 infusion Intravenous, at 100 mL/hr, Plasma-LYTE 148, isolyte-S, and isolyte-S pH 7.4 are considered equivalent - including for MAR barcode scanning., CONTINUOUS, Starting on Sat06/26/24 at 1030, Until Sat06/26/24 at 1542, Pre-Op 1013 (New Bag - Prov ider: Estelle Khan RN)1040 (Continue from Pre-Op - Provider: Rachel Hunter CRNA)1102 (Paused - Provider: Rachel Hunter CRNA - Comment: Switch to gravity)1103 (Restarted - Provider: Rachel Hunter CRNA) PRN Medication Order 06/24/2024 06/25/2024 06/26/2024 Acetaminophen (Tylenol) tab 650 mg 650 mg, Oral, PRN Pain, Mild, Starting on Sat06/26/24 at 1113, Until Sat06/26/24 at 1542, For 1 dose, Maximum of 4 grams (4000 mg) per day., Post-op documented in this encounter Care Teams Manager Critical Care Relationship Specialty Start Date End Date Emma Vu DO [address] [place] [address] PCP - General Family Medicine 01/07/23 documented as of this encounter
--- OUTSIDE RECORDS SUMMARY | 2024-11-06 06:46 | External Medical Summary ---
Author Name Unknown Address Unknown Organization [id number] [address] [place] [id number] Laboratory Report Ordering Provider Test Date Status GIULIANA ABDALLA 06/03/2024 12:22:08 Final Observation Date Value Abnormality Reference (Units ) Status WBC, Total 06/03/2024 12:22:08 6.71 4.00-10.8 0 (K/uL) Final RBC 06/03/2024 12:22:08 4.45 3.85-5.15 (M/uL) Final Hemoglobin 06/03/2024 12:22:08 12.5 12.0-15.3 (g/dL) Final HCT 06/03/2024 12:22:08 40.0 36.0-45.2 (%) Final MCV 06/03/2024 12:22:08 89.9 81.5-97.5 (fL) Final MCH 06/03/2024 12:22:08 28.1 27.0-34.0 (pg) Final MCHC 06/03/2024 12:22:08 31.3 32.0-36.0 (g/dL) Final RDW 06/03/2024 12:22:08 15.4 11.5-15.5 (%) Final Platelets 06/03/2024 12:22:08 287 140-400 (K /uL) Final MPV 06/03/2024 12:22:08 9.6 6.6-11.1 ( fL) Final Performing Location [facility] [address] [place] [id number]
--- OUTSIDE RECORDS SUMMARY | 2024-11-06 06:46 | External Medical Summary | Summary of Care ---
Author Name Unknown Organization [facility] Address [address] [place] [address] Phone [phone] Care Team Providers Care Horticultural Farm Manager Name Role Phone Emma Vu Wilman DO Primary Car e Provider Reason for Visit * Reason Onset Date Comments Test Results Imaging Study 06/16/2024 CTAP Encounter Details Date Type Department Care Team (Late st Contact Info) Description 06/16/2024 Telephone Gastroenterology, [facility] [address] [place] [address] Norma Miller CRNP [address] [place] [address] Test Results Imaging Study (CTAP) Allergies Active Allergy Reactions Criticality Noted Date Comments Aspartame High 09/07/2022 Other Reaction(s): HEART RACING documented as of this encounter (statuses as of 06/18/2024) Medications Medication Sig Dispensed Refills Start Date End Date Status Acetaminophen 500 MG Oral Tablet Take 1 Tablet by mouth every 4 hours as needed. 06/26/2022 Active Celecoxib 200 MG Oral Capsule (CeleBREX) Take 1 Capsule by mouth in the morning. One tablet or two tablets depends on her pain level-. 03/27/2023 Active LORazepam 0.5 MG Oral Tablet (Ativan) [...] by mouth in the morning. 01/15/2023 Active Semaglutide(0.25 or 0.5MG/DOS) 2 MG/1.5ML Solution Pen-injector (Ozempic) Inject 0.5 mg under the skin once a week. Active traZODone HCl 50 MG Oral Tablet (Desyrel) Take 1 Tablet by mouth at bedtime. Active Gabapentin 100 MG Oral Capsule (Neurontin) Take 1 Capsule by mouth at bedtime. 09/23/2023 Active Rosuvastatin Calcium 10 MG Oral Tablet (Crestor) Take 1 Tablet by mouth every night at bedtime. 12/25/2023 Active Multivitamin Adult Oral Tablet Chewable Take by mouth. Active buPROPion HCl ER (SR) 100 MG Oral Tablet Extended Release 12 Hour (Wellbutrin SR) Take 1 Tablet by mouth in the morning and 1 Tablet before bedtime. Active Omeprazole 20 MG Oral Tablet Delayed ReleaseIndications:Ch ronic constipation,External thrombosed hemorrhoids,Abdominal bloating,Gastroesopha geal reflux disease with esophagitis without hemorrhage Take 1 Tablet by mouth in the morning. 30 Tablet 3 06/03/2024 Active linaCLOtide 145 MCG Oral Capsule (Linzess)Indications: Chronic constipation,External thrombosed hemorrhoids,Abdominal bloating,Gastroesopha geal reflux disease with esophagitis without hemorrhage Take 1 Capsule by mouth daily before breakfast. 30 Capsule 11 06/03/2024 Active documented as of this encounter (statuses as of 06/18/2024) Active Problems Problem Noted Date Diagnosed Date Nausea and vomiting 01/25/2023 Rectal bleeding 01/25/2023 documented as of this encounter (statuses as of 06/18/2024) Immunizations Name Administration Dates Next Due Seasonal [...] ages 0-17 years) Not on file 06/24/2023 Sex and Gender Information Value Date Recorded Sex Assigned at Female 03/24/2023 7:53 AM EDT Gender Identity Female 03/24/2023 7:53 AM EDT Sexual Orientation Straight 03/24/2023 7: 53 AM EDT Job Start Date Occupation Industry Not on file Not on file Not on file documented as of this encounter Miscellaneous Notes * Telephone Encounter - Laisha Prado OSA - 06/18/2024 2:33 PM EDT FYI JODY will want the pt to have the [...] we need to move up colonoscopy to [facility]. documented in this encounter Plan of Treatment Upcoming Encounters Date Type Department Care Team (Latest Contact Info) Description 07/01/2024 1:30 PM EST Office Visit Gastroenterology, [address] [place] [address] Norma Miller CRNP [address] [place] [address] 07/17/2024 1:45 PM EST Imaging Radiology [address] [place] [address] 08/03/2024 2:00 PM EST Office Visit Otolaryngology/Head & Neck/Facial Plastic Surgery [address] [place] [address] [facility] [place] [address] Teddy Martel MD [address] [place] [facility] [facility] [address] 11/09/2024 1:00 PM EDT Hospital Encounter ENDO OSSC, Endoscopy Room [facility] [address] [place] [address] Niko Ashraf MD [address] [place] [address] 11/09/2024 1:00 PM EDT - 11/09/2024 2:00 PM EDT Surgery ENDO OSSC, Endoscopy Room [facility] [address] [place] [address] Niko Ashraf MD [address] [place] [address] COLONOSCOPY FLEXIBLE PROXIMAL DIAGNOSTIC Scheduled Orders Name Type Priority Associated Diagnoses Orde r Schedule GASTROINTESTINAL PATHOGEN PANEL, STOOL Lab Routine Colitis Diarrhea, unspecified type Expected: 06/17/2024, Expires: 06/16/2025 CLOSTRIDIUM DIFFICILE, PCR Lab Routine Colitis Diarrhea, unspecified type Expected: 06/17/2024, Expires: 06/16/2025 Scheduled Procedures Name Priority Associated Diagnoses Date/Ti me COLONOSCOPY FLEXIBLE PROXIMA L DIAGNOSTIC External thrombosed hemorrhoids Abdominal bloating Gastroesophageal reflux disease with esophagitis without hemorrhage 11/09/2024 1:00 PM EDT ESOPHAGOGASTRODUODENOSCOPY ( EGD), FLEXIBLE, TRANSORAL, DIAGNOSTIC External thrombosed hemorrhoids Abdominal bloating Gastroesophageal reflux disease with esophagitis without hemorrhage 11/09/2024 1:00 PM EDT Health Maintenance Due Date Last Done Comments [...] Cancer Screening 06/28/2028 HPV/Co-Test 06/28/2028 06/28/2023 Colonoscopy 07/19/2032 07/19/2022 Colorectal Cancer Screening 07/19/2032 Influenza Vaccine (FLU shot) Completed , 07/23/2023, [...] noninfectious gastroenteritis and colitis Diarrhea, unspecified type External thrombosed hemorrhoids Abdominal bloating Flatulence, eructation, and gas pain Gastroesophageal reflux disease with esophagitis without hemorrhage documented in this encounter Care Teams Horticultural Farm Manager Relationship Specialty Start Date End Date Emma Vu DO [address] [facility], [place] [address] PCP - General Family Medicine 01/07/23 documented as of this encounter
--- OUTSIDE RECORDS SUMMARY | 2024-11-06 06:46 | External Medical Summary | Summary of Care ---
Author Name Unknown Organization [facility] Address [address] [place] [address] Phone [phone] Care Team Providers Care Staff Research Associate Name Role Phone Emma Vu Wilman DO Primary Car e Provider Reason for Visit * Reason Onset Date Comments Test Results Imaging Study 06/16/2024 CTAP Encounter Details Date Type Department Care Team (Late st Contact Info) Description 06/16/2024 Telephone Gastroenterology, [facility] [address] [place] [address] Norma Miller CRNP [address] [place] [address] Test Results Imaging Study (CTAP) Allergies Active [...] we need to move up colonoscopy to [facility]. documented in this encounter Plan of Treatment Upcoming Encounters Date Type Department Care Team (Latest Contact Info) Description 07/01/2024 1:30 PM EST Office Visit Gastroenterology, [address] [place] [address] Norma Miller CRNP [address] [place] [address] 07/17/2024 1:45 PM EST Imaging Radiology [address] [place] [address] 08/03/2024 2:00 PM EST Office Visit Otolaryngology/Head & Neck/Facial Plastic Surgery [address] [place] [facility] [place] [address] Teddy Martel MD [address] [place] [facility] [address] 11/09/2024 1:00 PM EDT Hospital Encounter ENDO OSSC, Endoscopy Room [facility] [address] [place] [address] Niko Ashraf MD [address] [place] [address] 11/09/2024 1:00 PM EDT - 11/09/2024 2:00 PM EDT Surgery ENDO OSSC, Endoscopy Room [facility] [address] [place] [phone] Niko Ashraf MD [address] [place] [address] COLONOSCOPY FLEXIBLE PROXIMAL DIAGNOSTIC Scheduled Orders Name [...] hemorrhage documented in this encounter Care Teams Staff Research Associate Relationship Specialty Start Date End Date Emma Vu DO [address] [facility], [place] [address] PCP - General Family Medicine 01/07/23 documented as of this encounter
--- OUTSIDE RECORDS SUMMARY | 2024-11-06 06:46 | External Medical Summary | Summary of Care ---
Author Name Unknown Organization [facility] Address [address] [place] [address] Phone [phone] Care Team Providers Care Data Analytics Architect Name Role Phone Emma Vu Wilman DO Primary Car e Provider Reason for Visit * Reason Onset Date Comments Test Results Imaging Study 06/16/2024 CTAP Encounter Details Date Type Department Care Team (Late st Contact Info) Description 06/16/2024 Telephone Gastroenterology, [facility] [address] [place] [address] Norma Miller CRNP [address] [place] [address] Test Results Imaging Study (CTAP) Allergies Active [...] we need to move up colonoscopy to [facility]. documented in this encounter Plan of Treatment Upcoming Encounters Date Type Department Care Team (Latest Contact Info) Description 07/01/2024 1:30 PM EST Office Visit Gastroenterology, [address] [place] [address] Norma Miller CRNP [address] [place] [address] 07/17/2024 1:45 PM EST Imaging Radiology [address] [place] [address] 08/03/2024 2:00 PM EST Office Visit Otolaryngology/Head & Neck/Facial Plastic Surgery [address] [place] [facility] [place] [address] Teddy Martel MD [address] [place] [facility] [address] 11/09/2024 1:00 PM EDT Hospital Encounter ENDO OSSC, Endoscopy Room [facility] [address] [place] [address] Niko Ashraf MD [address] [place] [address] 11/09/2024 1:00 PM EDT - 11/09/2024 2:00 PM EDT Surgery ENDO OSSC, Endoscopy Room [facility] [address] [place] [address] Niko Ashraf MD [address] [place] [address] COLONOSCOPY FLEXIBLE PROXIMAL DIAGNOSTIC Scheduled Orders Name [...] hemorrhage documented in this encounter Care Teams Data Analytics Architect Relationship Specialty Start Date End Date Emma Vu DO [address] [facility], [place] [address] PCP - General Family Medicine 01/07/23 documented as of this encounter
--- OUTSIDE RECORDS SUMMARY | 2024-11-06 06:46 | External Medical Summary | Summary of Care ---
Author Name Unknown Organization [facility] Address [address] [place] [address] Phone [phone] Care Team Providers Care Director Of Business Continuity Name Role Phone Emma Vu Sandie Wilman DO Primary Car e Provider Reason for Referral * Precert (Within 10 days (routine)) - Authorized Specialty Diagnoses / Procedures Referred By Kate williamson Referred To Contact Radiology Diagnoses Chronic constipation External thrombosed hemorrhoids Abdominal bloating Gastroesophageal reflux disease with esophagitis without hemorrhage Procedures CT ABD/PELVIS W IV AND W ORAL CONTRAST Norma Miller CRNP [address] [facility] [place] [address] Referral ID Status Reason Start Date Expiration Date V isits Requested Visits Authorized [id number] Authorized 06/03/2024 999 999 Reason for Visit * Reason Onset Date Comments Follow Up Per pt she was h aving some constipation with small stools/straining. Pt states that has subsided and is now having some rectal bleeding. Feels a hemorrhoids is flared. Pt c/o abd pain and bloating that started this morning. Medication Administration 06/03/2024 Flu an d/or Pneumo Inj Encounter Details Date Type Department Care Team (Late st Contact Info) Description 06/03/2024 11:00 AM EDT Office Visit Gastroenterology, [facility] [address] [facility] [place] [address] Norma Miller CRNP [address] [place] [address] Chronic constipation*; Left lower quadrant pain; Abdominal bloating; Dyspepsia; External thrombosed hemorrhoids; Gastroesophageal reflux disease with esophagitis without hemorrhage; Need for prophylactic vaccination and inoculation against influenza Allergies Active Allergy Reactions Criticality Noted Date Comments Aspartame High 09/07/2022 Other Reaction(s): HEART RACING documented as of this encounter (statuses as of 06/03/2024) Medications Medication Sig Dispensed Refills Start Date [...] Active Omeprazole 20 MG Oral Tablet Delayed ReleaseIndications :Chronic constipation,Exter nal thrombosed hemorrhoids,Abdomi nal bloating,Gastroeso phageal reflux disease with esophagitis without hemorrhage Take 1 Tablet by mouth in the morning. 30 Tablet 3 06/03/2024 Active linaCLOtide 145 MCG Oral Capsule (Linzess)Indicatio ns:Chronic constipation,Exter nal thrombosed hemorrhoids,Abdomi nal bloating,Gastroeso phageal reflux disease with esophagitis without hemorrhage Take 1 Capsule by mouth daily before breakfast. 30 Capsule 11 06/03/2024 Active Lactulose 10 GM/15ML Oral Solution (Constulose) Take 22.5 mL by mouth in the morning and 22.5 mL before bedtime. 06/03/2024 Discontinued (Medication/ Dose Changed) documented as of this encounter (statuses as of 06/03/2024) Active Problems Problem Noted Date Diagnosed Date Nausea and vomiting 01/25/2023 Rectal bleeding 01/25/2023 documented as of this encounter (statuses as of 06/03/2024) Immunizations Name Administration Dates Next Due Seasonal [...] on file documented as of this encounter Last Filed Vital Signs Vital Sign Reading Time Taken Comments Blood Pressure 132/82 06/03/2024 11:10 AM EDT Pulse 70 06/03/2024 11:10 AM EDT Temperature 36.7 C (98.1 F) 06/03/2024 11:10 AM E DT Respiratory Rate - - Oxygen Saturation - - Inhaled Oxygen Concentration - - Weight 104.3 kg (230 lb) 06/03/2024 11:10 AM EDT Height - - Body Mass Index 37.12 01/06/2024 3:26 PM EDT documented in this encounter Progress Notes * Virgil Yen LPN - 06/03/2024 11:56 AM EDT PRE - ADMINISTRATION DOCUMENTATION Are you experiencing any cold symptoms or fever? No Have you had Guillain-Waldo Syndrome (an illness that causes paralysis) within the last 6 weeks? No Have you had the flu shot in the past? YES Have you ever had a reaction to the flu shot? No Virgil Yen LPN, 06/03/2024 11:56 AM Immunization Administration Documentation Time Out Procedure Performed: Yes Patient Identified (Ask Name/Date of ): Yes Does the patient have a fever greater than 101 degrees today? No Patient allergic to latex? No VFC Stock: No Immunization(s) verified: Yes, Immunization Name: Flu, VIS Sheet(s) given: Yes Verified Side and Site: Yes Verified Shot(s) with Parent(s)/Patient: Yes * Norma Miller CRNP - 06/03/2024 11:00 AM EDT Gastroenterology Outpatient Visit 06/03/2024 Referring physician:Emma Vu DO PCP: Emma Vu DO Past medical history: Chronic constipation History of rectal bleeding secondary to large external prolapsing thrombosed hemorrhoids, status post hemorrhoidectomy, 07/12/2023 ? Questionable history of UC CC: Constipation HPI: 58-year-old female presents today today gastroenterology clinic in follow-up regarding constipationand hemorrhoids. On 05/06 patient called in with concerns regarding a small pellet-like BMs with bloating, mucus andsmall blood clots x several days. She takes lactulose for constipation relief. After a few days stools returned to normal size. She was doing well up until this morning where she has developed significant left lower quadrant pain as well as lower abdominal discomfort. In his tender with palpation. Went to the restroom prior to her appointment and noted blood in the stools. Concern that she is having issue with her hemorrhoids again however her father does have a history of colon cancer which frightens her. Current symptoms as described below: Stool consistency: Soft formed moderate to large in size; occasional straining Frequency: 2x/day-- two days prior went 5-6 times (formed/soft) Triggers: none Urgency: Yes, none recently Boating: Lower abdomen. Abdominal pain/pressure: Left side Nausea/vomiting: none Fever/Chills: none Blood in stools/rectal bleeding: Today small amount--bright red, in the toilet ? Clots and ? Skin, on toilet paper. Nocturnal BM: yes- at least 2x a night Tenesmus: yes Unintentional weight loss: +gained Poor appetite: waxes and wanes x2 weeks -- early satiety due to bloating. Increased belching Affecting daily life: yes Patient is compliant with all medications, and offers no side effects. Medications tried for above complaint: Lactulose-- BID Benefiber daily 2 tbs Probiotics-- daily Miralax-- not effective. Squatty potty helps Previous GI workup: Colonoscopy: 07/2022; generally unremarkable Flex si05/2023 thrombosed external hemorrhoids, normal mucosa of the left colon, diverticulosis of the sigmoid colon Endoscopy: N/a Family Hx: CRC: Father Current Outpatient Medications Medication Sig Dispense Refill Acetaminophen 500 MG Oral Tablet Take 1 Tablet by mouth every 4 hours as needed. Celecoxib 200 MG Oral Capsule (CeleBREX) Take 1 Capsule by mouth in the morning. One tablet or two tablets depends on her pain level-. Vortioxetine HBr 20 MG Oral Tablet Take 1 Tablet by mouth in the morning. sulfaSALAzine 250 MG OR TABS Take 1 Tablet by mouth in the morning. buPROPion HCl ER (SR) 100 MG Oral Tablet Extended Release 12 Hour (Wellbutrin SR) Take 1 Tablet by mouth in the morning and 1 Tablet before bedtime. Omeprazole 20 MG Oral Tablet Delayed Release Take 1 Tablet by mouth in the morning. 30 Tablet 3 linaCLOtide 145 MCG Oral Capsule (Linzess) Take 1 Capsule by mouth daily before breakfast. 30 Capsule 11 LORazepam 0.5 MG Oral Tablet (Ativan) Take 1 Tablet by mouth every 6 hours as needed. Ondansetron HCl 4 MG Oral Tablet (Zofran) Take 1 Tablet by mouth every 8 hours as needed. Semaglutide(0.25 or 0.5MG/DOS) 2 MG/1.5ML Solution Pen-injector (Ozempic) Inject 0.5 mg under the skin once a week. (Patient not taking: Reported on 06/03/2024) traZODone HCl 50 MG Oral Tablet (Desyrel) Take 1 Tablet by mouth at bedtime. Gabapentin 100 MG Oral Capsule (Neurontin) Take 1 Capsule by mouth at bedtime. (Patient not taking:Reported on 06/03/2024) Rosuvastatin Calcium 10 MG Oral Tablet (Crestor) Take 1 Tablet by mouth every night at bedtime. Multivitamin Adult Oral Tablet Chewable Take by mouth. No current facility-administered medications for this visit. Past Medical History: Diagnosis Date Anxiety Hyperlipidemia INFORMATION borderline diabetes Motion sickness Nausea and vomiting PONV (postoperative nausea and vomiting) Past Surgical History: Procedure Laterality Date ANORECTAL EXAM ,DIAG, REQUIRING ANESTHESIA N/A 07/12/2023 ANORECTAL EXAM UNDER ANESTHESIA performed by Francoise Kamara MD at [facility] HEMORRHOIDECTOMY, INTERNAL, 2 + COLUMNS N/A 07/12/2023 HEMORRHOIDECTOMY EXTERNAL AND INTERNAL COMPLEX performed by Francoise Kamara MD at [facility] INFORMATION 1988 tubal INFORMATION 1989 sinus surgery INFORMATION 12/2021 colonscopy INFORMATION 07/2022 colonoscopy INFORMATION 1975 appendix removed SIGMOIDOSCOPY, DIAGNOSTIC 06/11/2023 diverticulosis/hemorrhoids/biopsies normal/SIGMOIDOSCOPY FLEXIBLE DIAGNOSTIC performed by Niko Ashraf MD at ENDOSCOPY [facility] Social History Tobacco Use Smoking status: Never Smokeless tobacco: Never Vaping Use Vaping status: Never Used Substance Use Topics Alcohol use: Not Currently Drug use: Never Review of patient's allergies indicates: Allergen Reactions Aspartame Other Reaction(s): HEART RACING Review of Systems: See HPI for pertinent positives. All others negative, other than those noted in HPI. Physical Exam: BP 132/82 | Pulse 70 | Temp 36.7 C (98.1 F) | Wt 104.3 kg (230 lb) | BMI 37.12 kg/m | BSA 2.2m GENERAL: Well developed and well nourished in [...] care/risk management for the below diagnoses. 1. Chronic constipation 2. Left lower quadrant pain 3. Abdominal bloating 4. Dyspepsia Longstanding chronic constipation. Maintained on lactulose. Acute onset of left lower quadrant pain--known diverticulosis without history of diverticulitis Abdominal bloating in the lower abdomen and dyspepsia Questionable history of ulcerative colitis, inflammatory markers have been elevated. Discussed other medications to help with constipation including OTC stools softeners (colace), stimulants (senna vs dulcolax), Miralax, probiotics, IBgard, and fiber supplements (metamucil vs. Benefiber). Currently taking lactulose twice daily--discontinue Start Linzess 145 mcg daily CTAP ordered due to left lower quadrant pain, ? Diverticulitis EGD ordered due to dyspepsia and abdominal discomfort. Repeat colonoscopy given family history and acute rectal bleeding. Start omeprazole 20 mg daily for dyspepsia CBC ordered to rule out anemia and leukocytosis Given hemorrhoids recommend good bowel regimen as above- avoid straining Can use preparation H as needed. Increase oral hydration 80+ oz water daily, encouraged daily movement/exercise, healthy dietary choices. Recommend avoidance of NSAIDs. Ozempic could be contributing to her constipation. Discussed emergency symptoms including ongoing rectal bleeding, severe abdominal pain, and fever. Patient should present to the emergency department if this occurs. 5. External thrombosed hemorrhoids History of rectal bleeding secondary to large external prolapsing thrombosed hemorrhoids, status post hemorrhoidectomy, 07/12/2023 The patient agrees to the above plan and will call with additional questions or concerns. ER with all emergencies advised. Follow-up: Return in about 4 weeks (around 07/01/2024). | Check-out note: -CTAP monalisa -Colon and EGD (wants Dr. Buckner to do it- okay with [facility])- MONALISA I spent a total of 40-54 minutes (exact time 40 mins) on the date of service in preparation, delivery, and documentation of the care provided to Corrina Harmon excluding any time spent in the performance of separately billed services or time spent by another provider/QHP. MARCO ANTONIO Hilliard [facility] Gastroenterology, [facility] This chart was completed in part utilizing [employer] Speech Voice Recognition Software. Grammatical errors, random [...] Nursing Notes * Julieta Mcgrath CMA - 06/03/2024 11:10 AM EDT Chief Complaint Patient presents with Follow Up Per pt she was having some constipation with small stools/straining. Pt states that has subsided and is now having some rectal bleeding. Feels a hemorrhoids is flared. Pt c/o abd pain and bloating that started this morning. documented in this encounter Miscellaneous Notes * Addendum Note - Virgil Yen LPN - 06/03/2024 11:59 AM EDTAddended by: VIRGIL YEN on: 06/03/2024 11:59 AM Modules accepted: Orders documented in this encounter Plan of Treatment Upcoming Encounters Date Type Department Care Team (Latest Contact Info) Description 06/09/2024 8:45 AM EDT Imaging Radiology [facility] [address] [facility] 132 [facility] [place] [address] 07/01/2024 1:30 PM EST Office Visit Gastroenterology, [facility] 132 [facility] [place] [address] Norma Miller CRNP [address] [facility] [place] [address] 07/17/2024 1:45 PM EST Imaging Radiology [address] [place] [address] 08/03/2024 2:00 PM EST Office Visit Otolaryngology/Head & Neck/Facial Plastic Surgery [address] [place] [address] Teddy Martel MD [address] [place] [address] 11/09/2024 1:00 PM EDT Hospital Encounter ENDO [facility], Endoscopy Room [facility] [address] [place] [phone] Niko Ashraf MD [address] [place] [address] 11/09/2024 1:00 PM EDT - 11/09/2024 2:00 PM EDT Surgery ENDO [facility], Endoscopy Room [facility] [address] [place] [phone] Niko Ashraf MD [address] [place] [address] COLONOSCOPY FLEXIBLE PROXIMAL DIAGNOSTIC Scheduled Orders Name Type Priority Associated Diagnoses Orde r Schedule CBC WITH WBC DIFFERENTIAL Lab Routine Chronic constipation External thrombosed hemorrhoids Abdominal bloating Gastroesophageal reflux disease with esophagitis without hemorrhage Expected: 06/03/2024, Expires: 06/03/2025 CT ABD/PELVIS W IV AND W ORAL CONTRAST Medical Imaging Routine Chronic constipation External thrombosed hemorrhoids Abdominal bloating Gastroesophageal reflux disease with esophagitis without hemorrhage Expected: 06/03/2024, Expires: 07/04/2025 COLONOSCOPY, DIAGNOSTIC (RECTUM) Procedures Routine Chronic constipation External thrombosed hemorrhoids Abdominal bloating Gastroesophageal reflux disease with esophagitis without hemorrhage Ordered: 06/03/2024 EGD, FLEXIBLE, DIAGNOSTIC Procedures Routine Chronic constipation External thrombosed hemorrhoids Abdominal bloating Gastroesophageal reflux disease with esophagitis without hemorrhage Ordered: 06/03/2024 Scheduled Procedures Name Priority Associated Diagnoses Date/Ti [...] as of this encounter Visit Diagnoses Diagnosis Chronic constipation- Primary Unspecified constipation Left lower quadrant pain Abdominal pain, left lower quadrant Abdominal bloating Flatulence, eructation, and gas pain Dyspepsia Dyspepsia and other specified disorders of function of stomach External thrombosed hemorrhoids Gastroesophageal reflux disease with esophagitis without hemorrhage Need for prophylactic vaccination and inoculation against influenza External thrombosed hemorrhoids Abdominal bloating Flatulence, eructation, and gas pain Gastroesophageal reflux disease with esophagitis without hemorrhage documented in this encounter Care Teams Director Of Business Continuity Relationship Specialty Start Date End Date Emma Vu DO [address] [place] [address] PCP - General Family Medicine 01/07/23 documented as of this encounter"
--- OUTSIDE RECORDS SUMMARY | 2024-11-06 06:46 | External Medical Summary | Summary of Care ---
Author Name Unknown Organization [facility] Address [address] [place] [address] Phone [phone] Care Team Providers Care Aegis Console Operator Track Name Role Phone IrisaudiJuanEmmakerwin Stovall DO Primary Car e Provider Encounter Details Date Type Department Care Team (Late st Contact Info) Description 06/19/2024 Telephone Gastroenterology, [facility] [address] [place] [address] Niko Ashraf MD [address] [place] [address] Allergies Active Allergy Reactions Criticality Noted Date Comments Aspartame High 09/07/2022 Other Reaction(s): HEART RACING documented as of this encounter (statuses as of 06/19/2024) Medications Medication Sig Dispensed Refills Start Date [...] as of this encounter (statuses as of 06/19/2024) Active Problems Problem Noted Date Diagnosed Date Nausea and vomiting 01/25/2023 Rectal bleeding 01/25/2023 documented as of this encounter (statuses as of 06/19/2024) Immunizations Name Administration Dates Next Due Seasonal [...] on file documented as of this encounter Plan of Treatment Upcoming Encounters Date Type Department Care Team (Latest Contact Info) Description 06/26/2024 10:30 AM EST Hospital Encounter ENDO [facility], Endoscopy Room [facility] [address] [place] [phone] Niko Ashraf MD [address] [place] [address] 06/26/2024 10:30 AM EST - 06/26/2024 11:30 AM EST Surgery ENDO [facility], Endoscopy Room [facility] [address] [place] [address] Niko Ashraf MD [address] [place] [address] COLONOSCOPY FLEXIBLE PROXIMAL DIAGNOSTIC 07/01/2024 1:30 PM EST Office Visit [facility]enterology, [facility] [place] [address] Norma Miller CRNP [address] [place] [address] 07/17/2024 1:45 PM EST Imaging Radiology [address] [facility] [place] [address] 08/03/2024 2:00 PM EST Office Visit Otolaryngology/Head & Neck/Facial Plastic Surgery [address] [facility] [place] [address] Teddy Martel MD [address] [facility] [address] Scheduled Procedures Name Priority Associated Diagnoses Date/Ti ok COLONOSCOPY FLEXIBLE PROXIMA L DIAGNOSTIC External thrombosed hemorrhoids Abdominal bloating Gastroesophageal reflux disease with esophagitis without hemorrhage 06/26/2024 10:30 AM EST ESOPHAGOGASTRODUODENOSCOPY ( EGD), FLEXIBLE, TRANSORAL, DIAGNOSTIC External thrombosed hemorrhoids Abdominal bloating Gastroesophageal reflux disease with esophagitis without hemorrhage 06/26/2024 10:30 AM EST Health Maintenance Due Date Last [...] filedocumented as of this encounter Care Teams Aegis Console Operator Track Relationship Specialty Start Date End Date Emma Vu DO [address] [place] [address] PCP - General Family Medicine 01/07/23 documented as of this encounter
--- OUTSIDE RECORDS SUMMARY | 2024-11-06 06:46 | External Medical Summary | Summary of Care ---
Author Name Unknown Organization [facility] Address [address] [place] [address] Phone [phone] Care Team Providers Care Faculty Neuropsychologist Name Role Phone Emma Vu Sandie Wilman DO Primary Car e Provider Reason for Referral * Precert (Within 10 days (routine)) - Authorized Specialty Diagnoses / Procedures Referred By Kate williamson Referred To Contact Radiology Diagnoses Chronic constipation External thrombosed hemorrhoids Abdominal bloating Gastroesophageal reflux disease with esophagitis without hemorrhage Procedures CT ABD/PELVIS W IV AND W ORAL CONTRAST Norma Miller CRNP [address] [place] [address] Referral ID Status Reason Start Date Expiration Date V isits Requested Visits Authorized [id number] Authorized 06/03/2024 999 999 Reason for Visit [...] 06/03/2024 11:00 AM EDT Office Visit Gastroenterology, [facility] [address] [facility] [place] [address] Norma Miller CRNP [address] [place] [address] Chronic constipation*; Left lower quadrant pain; Abdominal [...] symptoms or fever? No Have you had Guillain-Portis Syndrome (an illness that causes paralysis) within [...] ANESTHESIA performed by Francoise Kamara MD at [facility] HEMORRHOIDECTOMY, INTERNAL, 2 + COLUMNS N/A 07/12/2023 HEMORRHOIDECTOMY EXTERNAL AND INTERNAL COMPLEX performed by Francoise Kamara MD at [facility] INFORMATION 1988 tubal INFORMATION 1989 sinus surgery INFORMATION 12/2021 colonscopy INFORMATION 07/2022 colonoscopy INFORMATION 1975 appendix removed SIGMOIDOSCOPY, DIAGNOSTIC 06/11/2023 diverticulosis/hemorrhoids/biopsies normal/SIGMOIDOSCOPY FLEXIBLE DIAGNOSTIC performed by Niko Ashraf MD at ENDOSCOPY [facility] Social History Tobacco Use Smoking status: Never [...] Dr. Buckner to do it- okay with [facility])- MONALISA I spent a total of 40-54 minutes (exact time 40 mins) on the date of service in preparation, delivery, and documentation of the care provided to Corrina Harmon excluding any time spent in the performance of separately billed services or time spent by another provider/QHP. MARCO ANTONIO Hilliard [facility] Gastroenterology, [facility] This chart was completed in part utilizing [employer] Speech Voice Recognition Software. Grammatical errors, random [...] Description 06/09/2024 8:45 AM EDT Imaging Radiology [place] [facility]st [facility] 132 [facility] [place] [address] 07/01/2024 1:30 PM EST Office Visit Gastroenterology, [facility] 132 [facility] [place] [address] Norma Miller CRNP 132 [facility] [place] [address] 07/17/2024 1:45 PM EST Imaging Radiology [address] [place] [address] 08/03/2024 2:00 PM EST Office Visit Otolaryngology/Head & Neck/Facial Plastic Surgery [address] [place] [address] Teddy Martel MD [address] [place] [address] 11/09/2024 1:00 PM EDT Hospital Encounter ENDO [facility], Endoscopy Room [facility] [address] [place] [phone] Niko Ashraf MD [address] [place] [address] 11/09/2024 1:00 PM EDT - 11/09/2024 2:00 PM EDT Surgery ENDO [facility], Endoscopy Room [facility] [address] [place] [phone] Nkio Ashraf MD [address] [place] [address] COLONOSCOPY FLEXIBLE PROXIMAL DIAGNOSTIC Scheduled Orders Name [...] hemorrhage documented in this encounter Care Teams Faculty Neuropsychologist Relationship Specialty Start Date End Date Emma Vu DO [address] [place] [address] PCP - General Family Medicine 01/07/23 documented as of this encounter"
--- OUTSIDE RECORDS SUMMARY | 2024-11-06 06:46 | External Medical Summary | Summary of Care ---
Author Name Unknown Organization [facility] Address [address] [place] [address] Phone [phone] Care Team Providers Care Patient Account Analyst Name Role Phone Emma Vu Sandie Stovall DO Primary Car e Provider Reason for Visit * Reason Comments Outpatient Testing Encounter Details Date Type Department Care Team (Late st Contact Info) Description 06/03/2024 12:20 PM EDT Laboratory Laboratory, [facility] [address] [place] [phone] [facility] [address] [place] [address] Chronic constipation; External thrombosed hemorrhoids; Abdominal bloating; Gastroesophageal reflux disease with esophagitis without hemorrhage Allergies Active Allergy Reactions Criticality Noted Date [...] Description 06/09/2024 8:45 AM EDT Imaging Radiology [address] [place] [address] 07/01/2024 1:30 PM EST Office Visit Gastroenterology, [facility] [address] [place] [address] Norma Miller CRNP [address] [place] [address] 07/17/2024 1:45 PM EST Imaging Radiology [address] [place] [address] 08/03/2024 2:00 PM EST Office Visit Otolaryngology/Head & Neck/Facial Plastic Surgery [address] [place] [address] Teddy Martel MD [address] [place] [address] 11/09/2024 1:00 PM EDT Hospital Encounter ENDO OSS, Endoscopy Room [facility] [address] [place] [phone] Niko Ashraf MD [address] [place] [address] 11/09/2024 1:00 PM EDT - 11/09/2024 2:00 PM EDT Surgery ENDO OSS, Endoscopy Room [facility] [address] [place] [phone] Niko Ashraf MD [address] [place] [address] COLONOSCOPY FLEXIBLE PROXIMAL DIAGNOSTIC Scheduled Procedures Name Priority Associated Diagnoses Date/Ti [...] Procedure Name Priority Date/Time Associated Diagnosis Comments DIFFERENTIAL, AUTOMATED Routine 06/03/2024 12:22 PM EDT Chronic constipation External thrombosed hemorrhoids Abdominal bloating Gastroesophageal reflux disease with esophagitis without hemorrhage CBC Routine 06/03/2024 12:22 PM EDT Chronic constipation External thrombosed hemorrhoids Abdominal bloating Gastroesophageal reflux disease with esophagitis without hemorrhage CBC Routine 06/03/2024 12:22 PM EDT Chronic constipation External thrombosed hemorrhoids Abdominal bloating Gastroesophageal reflux disease with esophagitis without hemorrhage documented in this encounter Results * DIFFERENTIAL, AUTOMATED (06/03/2024 12:22 PM EDT) WBC 6.71 4.00 - 10.80 K/uL 06/03/2024 12:36 PM EDT [facility] Neutrophils % 68.5 40.0 - 75.0 % 06/03/2024 12:36 PM EDT [facility] Lymphocytes % 20.1 18.0 - 42.0 % 06/03/2024 12:36 PM EDT [facility] Monocytes % 8.3 1.0 - 11.0 % 06/03/2024 12:36 PM EDT [facility] Eosinophils % 2.5 0.0 - 6.0 % 06/03/2024 12:36 PM EDT [facility] Basophils % 0.6 0.0 - 2.0 % 06/03/2024 12:36 PM EDT [facility] Absolute Neutrophils 4.59 1.80 - 7.70 K/uL 06/03/2024 12:36 PM EDT [facility] Absolute Lymphocytes 1.35 1.00 - 4.80 K/ul 06/03/2024 12:36 PM EDT [facility] Absolute Monocytes 0.56 0.00 - 1.10 K/uL 06/03/2024 12:36 PM EDT [facility] Absolute Eosinophils 0.17 0.00 - 0.70 K/uL 06/03/2024 12:36 PM EDT [facility] Absolute Basophils 0.04 0.00 - 0.20 K/uL 06/03/2024 12:36 PM EDT LAB[facility]10 Blood Venous blood specimen / Unknown Venipuncture / Unknown 06/03/2024 12:22 PM EDT 06/03/2024 12:22 PM EDT Norma Marte Angela BERNARD LAB BLOOD ORDER YASIR [facility]10 [address] [place] [address] * CBC (06/03/2024 12:22 PM EDT) WBC 6.71 4.00 - 10.80 K/uL 06/03/2024 12:36 PM EDT [facility] RBC 4.45 3.85 - 5.15 M/uL 06/03/2024 12:36 PM EDT [facility] HGB 12.5 12.0 - 15.3 g/dL 06/03/2024 12:36 PM EDT [facility] HCT 40.0 36.0 - 45.2 % 06/03/2024 12:36 PM EDT [facility] MCV 89.9 81.5 - 97.5 fL 06/03/2024 12:36 PM EDT [facility] MCH 28.1 27.0 - 34.0 pg 06/03/2024 12:36 PM EDT [facility] MCHC 31.3 32.0 - 36.0 g/dL 06/03/2024 12:36 PM EDT [facility] RDW 15.4 11.5 - 15.5 % 06/03/2024 12:36 PM EDT [facility]10 PLT 287 140 - 400 K/uL 06/03/2024 12:36 PM EDT [facility] MPV 9.6 6.6 - 11.1 fL 06/03/2024 12:36 PM EDT [facility] Blood Venous blood specimen / Unknown Venipuncture / Unknown 06/03/2024 12:22 PM EDT 06/03/2024 12:22 PM EDT Norma Marte Angela BERNARD LAB BLOOD ORDER [facility] [address] [place] [address] documented in this encounter Visit Diagnoses Diagnosis Chronic constipation Unspecified constipation External thrombosed hemorrhoids Abdominal bloating Flatulence, eructation, and gas pain Gastroesophageal reflux disease with esophagitis without hemorrhage External thrombosed hemorrhoids Abdominal bloating Flatulence, eructation, and gas pain Gastroesophageal reflux disease with esophagitis without hemorrhage documented in this encounter Care Teams Patient Account Analyst Relationship Specialty Start Date End Date Emma Vu DO [address] [place] [address] PCP - General Family Medicine 01/07/23 documented as of this encounter
--- OUTSIDE RECORDS SUMMARY | 2024-11-06 06:46 | External Medical Summary ---
Author Name Unknown Address Unknown Organization [facility] [place] [address] Laboratory Report Ordering Provider Test Date Status LENARD ABDALLAISO 06/03/2024 12:22:08 Final Observation Date Value Abnormality Reference (Units ) Status SYNC LEUKOCYTES IN BLOOD BY AUTOMATED COUNT 06/03/2024 12:22:08 6.71 4.00-10.80 (K/uL) Final Segs 06/03/2024 12:22:08 68.5 40.0-75.0 (%) Final Lymphs % 06/03/2024 12:22:08 20.1 18.0-42.0 (%) Final Monos 06/03/2024 12:22:08 8.3 1.0-11.0 (%) Final Eosinophils 06/03/2024 12:22:08 2.5 0.0-6.0 (%) Final Basos 06/03/2024 12:22:08 0.6 0.0-2.0 (%) Final Absolute Segs 06/03/2024 12:22:08 4.59 1.80-7.70 (K/uL) Final Lymphs, absolute 06/03/2024 12:22:08 1.35 1.00-4.80 (K/ul) Final Monos, Abs 06/03/2024 12:22:08 0.56 0.00-1.10 (K/uL) Final Eos, Abs 06/03/2024 12:22:08 0.17 0.00-0.70 (K/uL) Final Basos, Abs 06/03/2024 12:22:08 0.04 0.00-0.20 (K/uL) Final Performing Location [facility] - [address] [place] [address]
--- OUTSIDE RECORDS SUMMARY | 2024-11-06 06:46 | External Medical Summary | Summary of Care ---
Author Name Unknown Organization [facility] Address [address] [place] [address] Phone [phone] Care Team Providers Care Insurance Processor Name Role Phone Emma Vu Wilman DO Primary Car e Provider Reason for Visit * Reason Onset Date Comments Test Results Imaging Study 06/16/2024 CTAP Encounter Details Date Type Department Care Team (Late st Contact Info) Description 06/16/2024 Telephone Gastroenterology, [facility] [address] [place] [address] Norma Miller CRNP [address] [place] [address] Test Results Imaging Study (CTAP) Allergies Active [...] need to move up colonoscopy to [facility]. documented in this encounter Plan of Treatment Upcoming Encounters Date Type Department Care Team (Latest Contact Info) Description 07/01/2024 1:30 PM EST Office Visit Gastroenterology, [address] [place] [address] Norma Miller CRNP [address] [place] [address] 07/17/2024 1:45 PM EST Imaging Radiology [address] [place] [address] 08/03/2024 2:00 PM EST Office Visit Otolaryngology/Head & Neck/Facial Plastic Surgery [address] [facility] [place] [address] Teddy Martel MD [address] [facility] [place] [address] 11/09/2024 1:00 PM EDT Hospital Encounter ENDO OSSC, Endoscopy Room [facility] [address] [place] [phone] Niko Ashraf MD [address] [place] [address] 11/09/2024 1:00 PM EDT - 11/09/2024 2:00 PM EDT Surgery ENDO OSSC, Endoscopy Room [facility] [address] [place] [phone] Niko Ashraf MD [address] [place] [address] COLONOSCOPY FLEXIBLE PROXIMAL DIAGNOSTIC Scheduled Orders Name [...] hemorrhage documented in this encounter Care Teams Insurance Processor Relationship Specialty Start Date End Date Emma Vu DO [address] [facility], [place] [address] PCP - General Family Medicine 01/07/23 documented as of this encounter
--- OUTSIDE RECORDS SUMMARY | 2024-11-06 06:46 | External Medical Summary | Summary of Care ---
Author Name Unknown Organization [facility] Address [address] [place] [address] Phone [phone] Care Team Providers Care Vp Strategic Partnerships Name Role Phone Emma Vu Wilman DO Primary Car e Provider Reason for Visit * Reason Onset Date Comments Test Results Imaging Study 06/16/2024 CTAP Encounter Details Date Type Department Care Team (Late st Contact Info) Description 06/16/2024 Telephone Gastroenterology, [facility] [address] [place] [address] Norma Miller CRNP [address] [place] [address] Test Results Imaging Study (CTAP) Allergies Active [...] we need to move up colonoscopy to [facility]. documented in this encounter Plan of Treatment Upcoming Encounters Date Type Department Care Team (Latest Contact Info) Description 07/01/2024 1:30 PM EST Office Visit Gastroenterology, [facility] [address] [place] [address] Norma Miller CRNP [address] [place] [address] 07/17/2024 1:45 PM EST Imaging Radiology [facility] [address] [place] [address] 08/03/2024 2:00 PM EST Office Visit Otolaryngology/Head & Neck/Facial Plastic Surgery [address] [place] [address] Teddy Martel MD [address] [place] [address] 11/09/2024 1:00 PM EDT Hospital Encounter ENDO OSSC, Endoscopy Room [facility] [address] [place] [phone] Niko Ashraf MD [address] [place] [address] 11/09/2024 1:00 PM EDT - 11/09/2024 2:00 PM EDT Surgery ENDO OSSC, Endoscopy Room [facility] [address] [place] [phone] Niko Ashraf MD [address] [place] [address] COLONOSCOPY FLEXIBLE PROXIMAL DIAGNOSTIC Scheduled Orders Name [...] hemorrhage documented in this encounter Care Teams Vp Strategic Partnerships Relationship Specialty Start Date End Date Emma Vu DO [address] [place] [address] PCP - General Family Medicine 01/07/23 documented as of this encounter
[2024-11-06 08:08] VITALS: BP 136/81; PULSE 69; O2SAT 94
--- NOTE | 2024-11-06 08:34 | Hospitalist Progress Note ---
Date of Service November 06, 2024 Assessment & Plan (1) Small bowel obstruction: (2) Umbilical hernia: (3) Hyponatremia: Plan 59-year-old female PMHx ulcerative colitis, inflammatory bowel arthritis, dyslipidemia, anxiety and depression presenting for onset of abdominal pain the day [employer]. ED evaluation reveals leukocytosis 11.32, CMP sodium 135, anion gap 12, BUN/creatinine ratio 20.8, glucose 174, protein 8.8, globulin 4.5; lipase 20; UA with 1+ ketones and epithelial cells; CXR elevated right hemidiaphragm which is increased from prior without consolidation; CTAP mid to distal SBO secondary to herniated umbilical small bowel loop, proximal fluid distention of several small bowel loops proximal to the herniation with symmetric decompression of small bowel beyond the level of the herniation distending 2.6 cm, no pneumatosis or pneumoperitoneum and asymmetric concentric mucosal thickening with pericolonic fat stranding in the region of the distal descending and sigmoid colon with of the colon being partially decompressed, no abscess or perforation; EKG NSR at 73 bpm; provided with 1L NSS, Zofran 4 megs, morphine 4 mg, and Tylenol 1 g IV in ED. #SBO/Umbilical hernia Abdominal pain starting after lifting bird seed, noticeable then when standing straight up and down as well. Did have 7 episodes of vomiting [employer]. Current pain 2. - CBC leukocytosis 11.32; CMP sodium 132, anion gap 12; lipase 20 - CBC am - CTAP mid to distal SBO secondary to herniated umbilical small bowel loop with proximal fluid distention of several small bowel loops proximal to the herniation and symmetric decompression of small bowel beyond the level of the herniation (2.6 cm) - Pain management- morphine as needed - Zofran prn N/V - NPO - IVF w/ LR @ 80 mL/hr - Gen sx consulted- appreciate input + recs 11/06 NPO/IVF continued but increased to 100cc/hr Surgery consult pending -Note CTAP also reporting asymmetric concentric mucosal thickening in distal descending and sigmoid colon which favors incidental sigmoid diverticulitis over focal colitis but no abscess or perf monitor for abx need, does have hx UC - could start cipro/flagyl if needed as taking in past per December 2022 GI note if needed (prior on Remicade...no longer on and on sulfasalazine, hasn't seen GI in 6 months. Is on Linzess)?_ #Hyponatremia Likely secondary to vomiting and with minimal decrease, currently asymptomatic. - Na 135, glucose 174; corrected 137 - IVF as above - BMP am #UC/IBA-follows with rheumatology, most recent visit 05/15/2024; sulfasalazine Was on remicade infusions in the past, currently sulfazalazine and Linzess. Also see prior rx Ozempic (will need to inquire/avoid) #Anxiety/depression- Vortioxetine, lorazepam as needed Dispo: Admit, med/sx VTE prophylaxis: SCDs This document was dictated utilizing Mobile Location, IP. Please excuse any grammatical errors that may be secondary to use of this software. Admission and Anticipated Discharge Date Admission Date: November 06, 2024 Results & Data Results & Data Vital Signs (Past 12 Hours) Vital Signs Temp Pulse Pulse Pulse Resp BP BP 11/06/24 08:07 36.3 C L 69 16 136/81 11/06/24 05:00 36.3 C L 80 16 143/94 H 11/06/24 04:55 11/06/24 03:00 63 16 146/75 H 11/06/24 02:01 68 11/06/24 02:00 64 18 154/82 H 11/06/24 01:00 67 20 148/75 H 11/06/24 00:00 71 20 182/97 H 11/05/24 23:00 72 23 194/103 H 11/05/24 22:28 76 19 189/111 H 11/05/24 22:02 82 11/05/24 21:53 36.5 C 105 H 20 97/24 L Pulse Ox O2 Del Method 11/06/24 08:07 94 Room Air 11/06/24 05:00 96 Room Air 11/06/24 04:55 Room Air 11/06/24 03:00 95 11/06/24 02:01 11/06/24 02:00 92 11/06/24 01:00 91 11/06/24 00:00 94 11/05/24 23:00 11/05/24 22:28 95 Room Air 11/05/24 22:02 11/05/24 21:53 96 Room Air PG Care Time/CCT Total # of Minutes Spent Total Time Spent with Patient: Total time spent is greater than 50% in coordination of care (as documented) at patient's floor/unit and/or counseling patient: Coding Diagnoses Small bowel obstruction K56.609 Umbilical hernia K42.0 Obstruction and gangrene presence: with obstruction but without gangrene Hyponatremia E87.1 (2) Umbilical hernia Obstruction and gangrene presence: with obstruction but without gangrene Qualified Code(s): K42.0 - Umbilical hernia with obstruction, without gangrene
[2024-11-06] MEDS: buPROPion SR 100 MG TABCR PO SCH (08:40)
[2024-11-06] MEDS: CeleBREX 200 MG CAP PO SCH (08:40)
[2024-11-06] MEDS: PROPRANOLOL HCL 10 MG TAB PO PRN (08:40)
[2024-11-06] MEDS: sulfaSALAzine 500 MG TABEC PO SCH (08:40)
[2024-11-06] MEDS: ROSUVASTATIN CALCIUM 10 MG TAB PO SCH (09:23)
[2024-11-06] MEDS ORDERED: Nursing to Pharmacy Communication SCH (09:30)
[2024-11-06 09:34] LABS: Basophils # (auto) 0.05 K/uL (0.00-0.20); Basophils % (auto) 0.6 %; Eosinophils # (auto) 0.06 K/uL (0.00-0.50); Eosinophils % (auto) 0.8 %; Hematocrit (blood only) 38.7 % (37.0-47.0); Hemoglobin 12.2 g/dl (12.0-16.0); Immature Granulocytes # (auto) 0.01 K/uL (0.01-0.20); Immature Granulocytes % (auto) 0.1 %; Lymphocytes # (auto) 1.45 K/uL (1.20-3.40); Lymphocytes % (auto) 18.4 %; Mean Corpuscular Hemoglobin 26.9 pg (25.0-34.0); Mean Corpuscular Hgb Conc 31.5 g/dL (32.0-36.0); Mean Corpuscular Volume 85.4 fL (80.0-100.0); Mean Platelet Volume 9.6 fL (9.4-12.4); Monocytes # (auto) 0.67 K/uL (0.11-0.59); Monocytes % (auto) 8.5 %; Neutrophils # (auto) 5.62 K/uL (1.40-6.50); Neutrophils % (auto) 71.6 %; Platelet Count 324 K/uL (130-400); RDW Coefficient of Variation 15.5 % (11.5-14.5); RDW Standard Deviation 48.1 fL (36.4-46.3); Red Blood Count 4.53 M/uL (4.20-5.40); White Blood Count 7.86 K/ul (4.8-10.8)
[2024-11-06 10:20] LABS: BUN Creatinine Ratio 22.5 (10-20); Calcium 9.3 mg/dl (8.6-10.3); Creatinine Clr Calc Pharmacy 100.8 ml/min; Magnesium 2.1 mg/dl (1.7-2.4); Potassium 3.8 mmol/L (3.5-5.1)
[2024-11-06 10:33] LABS: Thyroid Stimulating Hormone 3.856 uIu/ml (0.300-4.500)
--- NOTE | 2024-11-06 10:38 | Discharge Summary ---
Discharge Summary Date of Service November 06, 2024 Principal Dx & Hospital Course #1 = Principal Diagnosis (1) Small bowel obstruction: (2) Umbilical hernia: (3) Hyponatremia: Plan #SBO/Umbilical hernia 59yo with PMHx significant for ulcerative colitis (on sulfasalazine), inflammatory bowel arthritis, HLD, anxiety/depression presented for acute onset of abdominal pain after lifting bird seed along with vomiting and found to have SBO 2nd to herniated umbilical small bowel loop, proximal fluid distention of several small bowel loops proximal to the herniation with symmetric decompression of small bowel beyond the level of the herniation distending 2.6 cm, no pneumatosis or pneumoperitoneum and asymmetric concentric mucosal thickening with pericolonic fat stranding in the region of the distal descending and sigmoid colon with of the colon being partially decompressed, no abscess or perforation. Provided with IVF, pain control, antiemetics and surgery consulted seen by surgery and advanced diet and patient wanting to go home. +BM x 2 prior to dc and hernia reduced but did discuss will need outpatient follow up eventually for surgery for hernia and to f/u with Dr Young in the next couple weeks. Diet advanced to full liquids without issues/worsened pain and rec low fiber at discharge which she reports she might have been overdoing at home. Discussed s/sx to return but also noted and discussed with surgery her CTAP reporting asymmetric concentric mucosal thickening in distal descending and sigmoid colon which favors incidental sigmoid diverticulitis over focal colitis but no abscess or perf and rec for Cipro/Flagyl at dc which were provided and patient has follow up with Dr Mondragon on Saturday. She is on linzess at baseline and discussed to hold until follow up. Confirmed no longer on ozempic 2nd to GI side effects/bowel issues. #Hyponatremia Likely secondary to vomiting and with minimal decrease, currently asymptomatic and IVF provided and normalized on repeat. TSH wnl #UC/IBA Follows with rheumatology, most recent visit 05/15/2024; sulfasalazine Was on remicade infusions in the past, currently sulfasalazine and Linzess. No longer on Ozempic, would avoid. Rec to hold off Linzess until discussed w/ GI in f/u #Anxiety/depression- Vortioxetine, lorazepam as needed. stable on exam Notes For Next Care Provider Ensure follow up with GI on saturday and surgery for elective hernia repair Low fiber diet recommended. Medication Changes From Visit Cipro/Flagyl x 7 days for incidental diverticulitis per surgery discussion/consultation [facility] Admission HPI Per Admitting Provider 59-year-old female PMHx ulcerative colitis, inflammatory bowel arthritis, dyslipidemia, anxiety and depression presenting for onset of abdominal pain the day [employer]. On the morning [employer] patient was lifting a large bag of bird seed when she felt a "twinge" in her abdomen around the umbilicus. States that she continued on with her movements and did not have much abdominal pain, few hours later she was moving her laundry basket and started to notice that the pain returned again, this time a little more severe. She tried to eat a meal but states that she felt quite nauseous after this and so when she went to the restroom and went to stand up, she felt that there was a bulge at her umbilicus. After trying to eat, she vomited approximately 7 times, and states that the last time she felt that she was throwing up dark matter. Patient attempted to sleep but at 2100, the pain was rated a 10 out of 10 and she could no longer stand so she decided to be evaluated. States that the current pain is a 2 out of 10 on the pain scale, and the pain always stayed at the umbilicus. Patient did feel as though she was having sweats when she was coming to the ED, but no fever or chills otherwise. Denying chest pain, shortness of breath, palpitations, diarrhea or constipation, numbness/tingling, weakness, or syncope. Patient has never had this happen before. ED evaluation reveals leukocytosis 11.32, CMP sodium 135, anion gap 12, BUN/creatinine ratio 20.8, glucose 174, protein 8.8, globulin 4.5; lipase 20; UA with 1+ ketones and epithelial cells; CXR elevated right hemidiaphragm which is increased from prior without consolidation; CTAP mid to distal SBO secondary to herniated umbilical small bowel loop, proximal fluid distention of several small bowel loops proximal to the herniation with symmetric decompression of small bowel beyond the level of the herniation distending 2.6 cm, no pneumatosis or pneumoperitoneum and asymmetric concentric mucosal thickening with pericolonic fat stranding in the region of the distal descending and sigmoid colon with of the colon being partially decompressed, no abscess or perforation; EKG NSR at 73 bpm; provided with 1L NSS, Zofran 4 megs, morphine 4 mg, and Tylenol 1 g IV in ED. Please see Dr. Willis's attestation for adjustments/additions to treatment plan. Admission Exam Per Admitting Provider General: No acute distress Skin: Warm and dry Head: Normocephalic, atraumatic Eyes: PERRL, conjunctivae clear, sclera non-icteric; wearing glasses ENT: External ear and ear canal without swelling; nose atraumatic; good dentition, tongue normal appearance, pharynx normal Neck: Supple, no LAD Cardio: RRR, no M/G/R, S1 and S2 normal Resp: No respiratory distress, Lungs CTA in all lobes bilaterally, no wheezes, rales, or rhonchi Abdomen: Soft, symmetric, mild tenderness to palpation at level just above umbilicus; No masses or hepatosplenomegaly palpable; Bowel sounds normoactive MSK: No deformities; pulses palpable and equal; no edema. Neuro: Awake, alert; Sensation intact bilaterally; CN grossly intact Psych: Appropriate mood and affect; good judgement and insight. Discharge Exam General: 59yo female sitting up in bed, eating , NAD, feels great/wanting to go Head atraumatic normocephalic, mmm, trachea midline Resp even/unlabored, on room air CV: RRR, no significant m/r/g GI: +BS, soft/NT, prior umbilical hernia not present/reduced,nontender, no guarding/rigidity MSK/Neuro: nonfocal, moves all extremities, not confused, no facial droop/slurred speech Psych: AOx3, cooperative Discharge Plan Discharge Items Patient Disposition: Home - Self-Care Reason For Visit: SBO,HERNIA Discharge Diagnosis: Small bowel obstruction, hernia diverticulitis Condition on Discharge: Good Goals: You have been hospitalized for an acute medical problem. During your stay at [facility], we have made an effort to correct the problem that brought you to the hospital while keeping you as comfortable as possible. Medications were used to bring your condition under control and your discharge instructions will include directions for any medications you should take after leaving the hospital. Please make sure you see your Primary Care Provider as part of your follow up plan. Activity: As commented below Activity Comment: NO HEAVY LIFTING Non-emergency contact: Primary Care Provider, Surgeon and Bus Matron Call non-emergency contact if: you have any medication questions, your symptoms worsen, your pain is not controlled, your pain is worsening, your pain is unusual for you and you have a fever Follow-up/Referrals: Chance Young MD [Physician] - (1-2 weeks) Emma Vu DO [Primary Care Provider] - 11/09/24 12:40 pm Niko Mondragon MD [Physician] - Diet: Heart Healthy and Low Fiber Addtl Attending Provider Instructions: You have been hospitalized for small bowel obstruction/abdominal hernia. This was reduced and you were provided with liquid diet and seen by surgery and can discharge on low fiber diet as discussed. We also discussed diverticulitis on imaging and are sending you on Cipro/Flagyl for antibiotics and encourage follow up with Dr Mondragon as already doing. Hold off your Linzess until you see him please. You should have follow up with surgery/Dr Young in the next 2-3 weeks for discussion eventual repair of this hernia in the future. NO HEAVY LIFTING UNTIL SEEN BY SURGERY/HERNIA REPAIRED. Please follow up with primary care in the next 7-10 days after discharge to coordinate your care/monitor your status. Please return to the ER with any increased pain, inability to tolerate oral intake, fever/chills, or for any other symptoms concerning for you. It has been a pleasure being a part of the medical team providing for you while you have been in the hospital. Take care! Pending Studies at Discharge: No Stand-Alone Forms: My [facility] [employer], Smoking Cessation Medications and DC Order Prescriptions: New ciprofloxacin HCl 500 mg tablet 500 mg PO BID Qty: 14 0RF metronidazole 500 mg tablet 500 mg PO Q8H 7 Days Qty: 21 0RF Continued sulfasalazine 500 mg tablet,delayed release (DR/EC) 0.5 g PO DAILY Qty: 90 1RF Trintellix 20 mg tablet 20 mg PO celecoxib [Celebrex] 200 mg capsule 200 mg PO BID acetaminophen [Tylenol Extra Strength] 500 mg tablet 500 mg PO QID PRN (Reason: Pain) trazodone 50 mg Tablet 50 mg PO HS PRN (Reason: Insomnia) Rx Instructions: 50-100 mg po HS prn try 50 then 100 if no relief propranolol 10 mg Tablet 10 mg PO DAILY PRN (Reason: HR/anxiety) bupropion HCl 200 mg Tablet Sustained-Release 12 Hr 200 mg PO QAM rosuvastatin 10 mg Tablet 10 mg PO DAILY Discharge Orders: Discharge Order (Routine); Ordered 11/06/24 Ordered By: Geovanna Llanes Admission Data Admit Date/Time: 11/06/24 03:48 Attending Provider: Wesley Jane Admit Provider: Rachelle Willis Primary Care Provider: Emma Vu Other Providers: Med Vicente; Rachelle Willis Hospital Stay Data Consultations 11/06/24 03:34 ED Decision to Admit Stat 11/06/24 05:22 Consult General Surgery Routine Diagnostic Imagining Performed Abdomen/Pelvis CT 11/05/24 22:45 Exam(s): CT ABDOMEN + PELVIS With Contrast IV Amt: 93 ML OPTIRAY 320 EXAM: CT Abdomen and Pelvis With Intravenous Contrast CLINICAL HISTORY: Abd pain, N/V, ? Hernia, SBO. TECHNIQUE: Axial computed tomography images of the abdomen and pelvis with intravenous contrast. CTDI is 28.14 mGy and DLP is 1507.39 mGy-cm. Automated exposure control was utilized for the study. A dose lowering technique was utilized adhering to the principles of ALARA. CONTRAST: Patient received 93 ML OPTIRAY 320 of IV contrast COMPARISON: CT abdomen and pelvis with contrast dated 02/09/2023 FINDINGS: Lung bases: Unremarkable. No mass. No consolidation. ABDOMEN: Liver: Unremarkable. No mass. Gallbladder and bile ducts: Unremarkable. No calcified stones. No ductal dilation. Pancreas: Unremarkable. No mass. No ductal dilation. Spleen: Unremarkable. No splenomegaly. Adrenals: Unremarkable. No mass. Kidneys and ureters: Unremarkable. No solid mass. No hydronephrosis. Stomach and bowel: Mid to distal small bowel obstruction secondary to a herniated umbilical small bowel loop. There is proximal fluid distention of several small bowel loops proximal to the herniation with asymmetric decompression of the small bowel beyond the level of the herniation. The herniated small bowel loop is fluid distended measuring 2.6 cm. Asymmetric concentric mucosal thickening with pericolonic fat stranding in the region of the distal descending and sigmoid colon. The colon is partially decompressed. PELVIS: Appendix: No findings to suggest acute appendicitis. Bladder: Unremarkable. No mass. Reproductive: There is a somewhat rounded fluid density structure in the region of the left adnexa measuring 2.7 cm in size. Previously, this measured 2 cm. The uterus and right adnexa are unremarkable. ABDOMEN and PELVIS: Intraperitoneal space: Unremarkable. No free air. No significant fluid collection. Bones/joints: No acute fracture. No dislocation. Soft tissues: As above. The hernia measures 1.7 cm in transverse diameter. Minimal fat stranding surrounding the umbilical hernia No other abnormality identified. Vasculature: Unremarkable. No abdominal aortic aneurysm. Lymph nodes: Unremarkable. No enlarged lymph nodes. IMPRESSION: 1. Mid to distal small bowel obstruction secondary to a herniated umbilical small bowel loop. There is proximal fluid distention of several small bowel loops proximal to the herniation with asymmetric decompression of the small bowel beyond the level of the herniation. The herniated small bowel loop is fluid distended measuring 2.6 cm. No pneumatosis or pneumoperitoneum. 2. Asymmetric concentric mucosal thickening with pericolonic fat stranding in the region of the distal descending and sigmoid colon. The colon is partially decompressed. Favor incidental sigmoid diverticulitis over focal colitis. No abscess or perforation. Electronically signed by: Antoni Gilbert MD 11/06/24 01:13 AM Chest X-Ray 11/05/24 22:46 Exam(s): XR CXR 1 VIEW EXAM: XR Chest, 1 View CLINICAL HISTORY: Reason for exam: Upper abdominal pain, N/V. TECHNIQUE: Frontal view of the chest. COMPARISON: 05/05/19 FINDINGS: Lungs: Elevated right hemidiaphragm, increased from prior. No consolidation. Pleural space: No pleural effusion or pneumothorax. Heart: No cardiomegaly or pulmonary vascular congestion. Bones/joints: No acute fracture. No dislocation. IMPRESSION: Elevated right hemidiaphragm, increased from prior. No consolidation. Electronically signed by: Paulina Lewis M.D. 11/05/24 23:48 PM Discharge Instructions Given to Patient (Per Discharging Provider) You have been hospitalized for small bowel obstruction/abdominal hernia. This was reduced and you were provided with liquid diet and seen by surgery and can discharge on low fiber diet as discussed. We also discussed diverticulitis on imaging and are sending you on Cipro/Flagyl for antibiotics and encourage follow up with Dr Mondragon as already doing. Hold off your Linzess until you see him please. You should have follow up with surgery/Dr Young in the next 2-3 weeks for discussion eventual repair of this hernia in the future. NO HEAVY LIFTING UNTIL SEEN BY SURGERY/HERNIA REPAIRED. Please follow up with primary care in the next 7-10 days after discharge to coordinate your care/monitor your status. Please return to the ER with any increased pain, inability to tolerate oral intake, fever/chills, or for any other symptoms concerning for you. It has been a pleasure being a part of the medical team providing for you while you have been in the hospital. Take care! Supervising Physician Co-Signing Physician Notes The patient was not seen by me. The chart was reviewed. Case discussed with CAMERON Blackburn. Agree with assessment and plan Total Time Total Time Spent Total Time Spent (In Minutes): 40 Coding Level of Care Code INP/OBS EV SAME DAY LV 3,85MIN Diagnoses Small bowel obstruction K56.609 Umbilical hernia K42.0 Obstruction and gangrene presence: with obstruction but without gangrene Hyponatremia E87.1
--- NOTE | 2024-11-06 10:39 | Surgery Consultation ---
Date of Consultation November 06, 2024 Assessment & Plan (1) Umbilical hernia: (2) Small bowel obstruction: (3) Diverticulitis large intestine: 59 yo female who was lifting bag of bird seed and developed abdominal pain at umbilicus with nausea and vomiting. CT scan with umbilical hernia containing small bowel causing SBO. This was able to be reduced in the emergency department and abdominal examination is now benign. Plan: clear liquids advance as tolerated to low fiber no aucte surgical intervention required will need close outpatient follow up in surgery office to discuss elective hernia repair no heavy lifting advised until hernia repair oral abx course for diverticulitis okay for discharge , discussed with Geovanna Young has seen and examined pt, agrees with above. History of Present Illness Reason for Consultation: Umbilical hernia with SBO and diverticulitis Requesting Physician: Adrienne Dc PA-C Attending Physician: Wesley Jane MD History of Present Illness Corrina is a 59 yo female who presented to emergency department last evening with abdominal pain, nausea, and vomiting. The patient was lifting a heavy bag of birdseed and developed pain around her bellybutton around [address] scan which showed umbilical hernia containing loop of small bowel with SBO and possible diverticulitis of sigmoid colon. Hernia was able to be reduced in emergency room and she is feeling 100% better. No further pain, nausea, or vomiting. Wants to go home. Passing gas. Allergies Allergy/AdvReac Type Severity Reaction Status Date / Time aspartame Allergy Severe HEART Verified 05/15/24 11:10 RACING Home Medications Medication Instructions Recorded Confirmed Type acetaminophen 500 mg tablet 500 mg PO QID PRN Pain 06/26/22 11/06/24 History (Tylenol Extra Strength) celecoxib 200 mg capsule (Celebrex) 200 mg PO BID 05/15/24 11/06/24 History vortioxetine 20 mg tablet 20 mg PO 05/15/24 05/15/24 History (Trintellix) sulfasalazine 500 mg 0.5 g PO DAILY #90 tabs 10/29/24 11/06/24 Rx tablet,delayed release bupropion HCl 200 mg tablet,12 hr 200 mg PO QAM 11/06/24 11/06/24 History sustained-release ciprofloxacin HCl 500 mg tablet 500 mg PO BID #14 tabs 11/06/24 Rx metronidazole 500 mg tablet 500 mg PO Q8H 7 days #21 tabs 11/06/24 Rx propranolol 10 mg tablet 10 mg PO DAILY PRN HR/anxiety 11/06/24 11/06/24 History rosuvastatin 10 mg tablet 10 mg PO DAILY 11/06/24 11/06/24 History trazodone 50 mg tablet 50 mg PO HS PRN Insomnia 11/06/24 11/06/24 History Patient History Medical History Ulcerative colitis Arthritis History of hypothyroidism History of anemia NO BLOOD TRANSFUSION Anxiety and depression Heart murmur NO CARDS Hemorrhoids Surgical History Family history of reaction to anesthesia MOTHER-SLOW TO WAKE UP History of dilatation and curettage History of bilateral tubal ligation History of appendectomy History of tooth extraction [place] teeth removed H/O sinus surgery Family History Mother Family history of diabetes mellitus Other Myocardial infarction Social History Smoking Status: Never smoker Second Hand Exposure: Yes (as a child); Do You Dip or Chew Tobacco: No; Hx Alcohol Use: No Hx Substance Use: No Preferred Language: Cuban Communication Ability: Effective Legal Services Manager Required: No Beliefs That Will Affect Care: None Current Living Situation: Alone Other Information That Helps Us Care for You: No Feels Safe at Home: Yes Safety Concerns: Feels Safe At This Time Assistive Devices: None Review of Systems Review of Systems: All systems reviewed & are unremarkable except as noted in HPI & below Physical Exam Constitutional: WD/WN, vitals as above cooperative and comfortable; no acute distress and not ill appearing Respiratory: normal respiratory effort; no respiratory distress and no labored breathing Gastrointestinal (Abdomen): Inspection/Auscultation: abdomen normal to inspection; abdomen not distended and no visible herniation Percussion/Palpation: abdomen soft; abdomen nontender, no guarding and abdomen not rigid Skin: no rashes, warm and dry Psychiatric: Orientation: alert and oriented x 3 Results & Data Vital Signs (Past 12 Hours) Vital Signs Temp Pulse Pulse Resp BP BP Pulse Ox 11/06/24 08:07 36.3 C L 69 16 136/81 94 11/06/24 05:00 36.3 C L 80 16 143/94 H 96 11/06/24 04:55 11/06/24 03:00 63 16 146/75 H 95 11/06/24 02:01 68 11/06/24 02:00 64 18 154/82 H 92 11/06/24 01:00 67 20 148/75 H 91 11/06/24 00:00 71 20 182/97 H 94 11/05/24 23:00 72 23 194/103 H O2 Del Method 11/06/24 08:07 Room Air 11/06/24 05:00 Room Air 11/06/24 04:55 Room Air 11/06/24 03:00 11/06/24 02:01 11/06/24 02:00 11/06/24 01:00 11/06/24 00:00 11/05/24 23:00 Laboratory Results 11/06/24 11/06/24 11/06/24 Range/Units 09:10 09:04 00:20 WBC 7.86 (4.8-10.8) K/ul RBC 4.53 (4.20-5.40) M/uL Hgb 12.2 (12.0-16.0) g/dl Hct 38.7 (37.0-47.0) % MCV 85.4 (80.0-100.0) fL MCH 26.9 (25.0-34.0) pg MCHC 31.5 L (32.0-36.0) g/dL RDW Std Deviation 48.1 H (36.4-46.3) fL RDW Coeff of Alli 15.5 H (11.5-14.5) % Plt Count 324 (130-400) K/uL MPV 9.6 (9.4-12.4) fL Immature Gran % (Auto) 0.1 % Neut % (Auto) 71.6 % Lymph % (Auto) 18.4 % [place] % (Auto) 8.5 % Eos % (Auto) 0.8 % Baso % (Auto) 0.6 % Neut # (Auto) 5.62 (1.40-6.50) K/uL Lymph # (Auto) 1.45 (1.20-3.40) K/uL [place] # (Auto) 0.67 H (0.11-0.59) K/uL Eos # (Auto) 0.06 (0.00-0.50) K/uL Baso # (Auto) 0.05 (0.00-0.20) K/uL Immature Gran # (Auto) 0.01 (0.01-0.20) K/uL Sodium 137 (136-145) mmol/L Potassium 3.8 (3.5-5.1) mmol/L Chloride 104 (98-107) mmol/L Carbon Dioxide 28 (21-32) mmol/L Anion Gap 5 (3-11) BUN 16 (6-23) mg/dl Creatinine 0.71 (0.6-1.2) mg/dl Est Cr Clr Drug Dosing 100.8 ml/min eGFR 96.68 BUN/Creatinine Ratio 22.5 H (10-20) Glucose 92 (70-99(Fasting)) mg/dl Lactate 1.0 (0.4-2.0) mmol/L Calcium 9.3 (8.6-10.3) mg/dl Magnesium 2.1 (1.7-2.4) mg/dl Total Bilirubin (0.2-1.0) mg/dl AST (13-39) U/L ALT (7-52) U/L Alkaline Phosphatase (34-104) U/L Troponin I High Sens (0-14) pg/ml Total Protein (6.0-8.3) gm/dl Albumin (3.4-5.0) gm/dl Globulin (2.5-4.0) gm/dl Albumin/Globulin Ratio (0.9-2) Lipase (11-82) U/L Procalcitonin < 0.02 (0-0.5) ng/ml TSH 3.856 (0.300-4.500) uIu/ml Urine Color Yellow Urine Appearance Cloudy A (Clear) Urine pH 8.5 H (4.5-7.5) Ur Specific [place] 1.037 H (1.000-1.030) Urine Protein Trace H (Negative) Urine Glucose (UA) Negative (Negative) Urine Ketones 1+ H (Negative) Urine Blood Negative (Negative) Urine Nitrite Negative (Negative) Urine Bilirubin Negative (Negative) Urine Urobilinogen Negative (Negative) Ur Leukocyte Esterase Negative (Negative) Urine WBC (Auto) 0-5 (0-5) /hpf Urine RBC (Auto) 0-2 (0-2) /hpf U Hyaline Cast (Auto) 0-2 (0-2) /lpf U Epithel Cells (Auto) 3-5 H (0-2) /hpf Urine Bacteria (Auto) None Seen (None Seen) 11/05/24 Range/Units 22:06 WBC 11.32 H (4.8-10.8) K/ul RBC 5.26 (4.20-5.40) M/uL Hgb 14.4 (12.0-16.0) g/dl Hct 43.9 (37.0-47.0) % MCV 83.5 (80.0-100.0) fL MCH 27.4 (25.0-34.0) pg MCHC 32.8 (32.0-36.0) g/dL RDW Std Deviation 46.3 (36.4-46.3) fL RDW Coeff of Alli 15.2 H (11.5-14.5) % Plt Count 373 (130-400) K/uL MPV 9.6 (9.4-12.4) fL Immature Gran % (Auto) 0.3 % Neut % (Auto) 80.7 % Lymph % (Auto) 13.4 % [place] % (Auto) 4.6 % Eos % (Auto) 0.6 % Baso % (Auto) 0.4 % Neut # (Auto) 9.14 H (1.40-6.50) K/uL Lymph # (Auto) 1.52 (1.20-3.40) K/uL [place] # (Auto) 0.52 (0.11-0.59) K/uL Eos # (Auto) 0.07 (0.00-0.50) K/uL Baso # (Auto) 0.04 (0.00-0.20) K/uL Immature Gran # (Auto) 0.03 (0.01-0.20) K/uL Sodium 135 L (136-145) mmol/L Potassium 4.1 (3.5-5.1) mmol/L Chloride 99 (98-107) mmol/L Carbon Dioxide 24 (21-32) mmol/L Anion Gap 12 H (3-11) BUN 16 (6-23) mg/dl Creatinine 0.77 (0.6-1.2) mg/dl Est Cr Clr Drug Dosing 92.3 ml/min eGFR 87.71 BUN/Creatinine Ratio 20.8 H (10-20) Glucose 174 H (70-99(Fasting)) mg/dl Lactate (0.4-2.0) mmol/L Calcium 10.3 (8.6-10.3) mg/dl Magnesium (1.7-2.4) mg/dl Total Bilirubin 0.7 (0.2-1.0) mg/dl AST 17 (13-39) U/L ALT 10 (7-52) U/L Alkaline Phosphatase 96 (34-104) U/L Troponin I High Sens 2.7 (0-14) pg/ml Total Protein 8.8 H (6.0-8.3) gm/dl Albumin 4.3 (3.4-5.0) gm/dl Globulin 4.5 H (2.5-4.0) gm/dl Albumin/Globulin Ratio 1.0 (0.9-2) Lipase 20 (11-82) U/L Procalcitonin (0-0.5) ng/ml TSH (0.300-4.500) uIu/ml Urine Color Urine Appearance (Clear) Urine pH (4.5-7.5) Ur Specific [place] (1.000-1.030) Urine Protein (Negative) Urine Glucose (UA) (Negative) Urine Ketones (Negative) Urine Blood (Negative) Urine Nitrite (Negative) Urine Bilirubin (Negative) Urine Urobilinogen (Negative) Ur Leukocyte Esterase (Negative) Urine WBC (Auto) (0-5) /hpf Urine RBC (Auto) (0-2) /hpf U Hyaline Cast (Auto) (0-2) /lpf U Epithel Cells (Auto) (0-2) /hpf Urine Bacteria (Auto) (None Seen) Diagnostic Findings Exam(s): CT ABDOMEN + PELVIS With Contrast IV Amt: 93 ML OPTIRAY 320 EXAM: CT Abdomen and Pelvis With Intravenous Contrast CLINICAL HISTORY: Abd pain, N/V, ? Hernia, SBO. TECHNIQUE: Axial computed tomography images of the abdomen and pelvis with intravenous contrast. CTDI is 28.14 mGy and DLP is 1507.39 mGy-cm. Automated exposure control was utilized for the study. A dose lowering technique was utilized adhering to the principles of ALARA. CONTRAST: Patient received 93 ML OPTIRAY 320 of IV contrast COMPARISON: CT abdomen and pelvis with contrast dated 02/09/2023 FINDINGS: Lung bases: Unremarkable. No mass. No consolidation. ABDOMEN: Liver: Unremarkable. No mass. Gallbladder and bile ducts: Unremarkable. No calcified stones. No ductal dilation. Pancreas: Unremarkable. No mass. No ductal dilation. Spleen: Unremarkable. No splenomegaly. Adrenals: Unremarkable. No mass. Kidneys and ureters: Unremarkable. No solid mass. No hydronephrosis. Stomach and bowel: Mid to distal small bowel obstruction secondary to a herniated umbilical small bowel loop. There is proximal fluid distention of several small bowel loops proximal to the herniation with asymmetric decompression of the small bowel beyond the level of the herniation. The herniated small bowel loop is fluid distended measuring 2.6 cm. Asymmetric concentric mucosal thickening with pericolonic fat stranding in the region of the distal descending and sigmoid colon. The colon is partially decompressed. PELVIS: Appendix: No findings to suggest acute appendicitis. Bladder: Unremarkable. No mass. Reproductive: There is a somewhat rounded fluid density structure in the region of the left adnexa measuring 2.7 cm in size. Previously, this measured 2 cm. The uterus and right adnexa are unremarkable. ABDOMEN and PELVIS: Intraperitoneal space: Unremarkable. No free air. No significant fluid collection. Bones/joints: No acute fracture. No dislocation. Soft tissues: As above. The hernia measures 1.7 cm in transverse diameter. Minimal fat stranding surrounding the umbilical hernia No other abnormality identified. Vasculature: Unremarkable. No abdominal aortic aneurysm. Lymph nodes: Unremarkable. No enlarged lymph nodes. IMPRESSION: 1. Mid to distal small bowel obstruction secondary to a herniated umbilical small bowel loop. There is proximal fluid distention of several small bowel loops proximal to the herniation with asymmetric decompression of the small bowel beyond the level of the herniation. The herniated small bowel loop is fluid distended measuring 2.6 cm. No pneumatosis or pneumoperitoneum. 2. Asymmetric concentric mucosal thickening with pericolonic fat stranding in the region of the distal descending and sigmoid colon. The colon is partially decompressed. Favor incidental sigmoid diverticulitis over focal colitis. No abscess or perforation. PERSONALLY REVIEWE CT SCAN IMAGES AND CONCUR WITH ABOVE FINDINGS (1) Umbilical hernia Obstruction and gangrene presence: with obstruction but without gangrene Qualified Code(s): K42.0 - Umbilical hernia with obstruction, without gangrene
--- NOTE | 2024-11-06 10:48 | Communication Note ---
Date of Service: November 06, 2024 By CMS guidelines, a determination that the admission or continued stay is not medically necessary has been made by a member of the UR committee and a phys ician for this hospital stay, therefore a Code 44 will be completed and the Inpatient admission will be changed to outpatient.
[2024-11-06] MEDS: VORTIOXETINE HYDROBROMIDE 20 MG TAB PO SCH (11:09)
--- NOTE | 2024-11-06 20:27 | Electrocardiogram Report ---
Test Reason : Blood Pressure : */* mmHG Vent. Rate : 75 BPM Atrial Rate : 75 BPM P-R Int : 122 ms QRS Dur : 84 ms QT Int : 396 ms P-R-T Axes : -1 6 42 degrees QTcB Int : 442 ms Normal sinus rhythm Normal ECG When compared with ECG of 05-May-2019 19:01, No significant change was found Confirmed by Tesfaye Beck ([id number]) on 11/06/2024 8:27:21 PM Referred By: REFERRED SELF Confirmed By: Tesfaye Beck
[2024-11-06] MEDS ORDERED: ROSUVASTATIN CALCIUM 10 MG TAB PO SCH (21:00)
== END 2024-11-06 13:05 | disposition home or self-care (01) | DRG 394 ==
LOC: ED 21:50 → INTOOBSV 11-06 03:48 → 3W 11-06 03:48 → SUATTDRO 11-06 03:48 → 3W 11-06 04:55